=== PATIENT | female | born 1980 | race Asian ===

== ENCOUNTER 2018-03-22 08:21 | Emergency (ER) | payer OTHER ==
[~2018-03-22] VITALS: Ht 162.6 cm; Wt 63.5 kg
[2018-03-22 08:22] VITALS: TEMP 36.9; Ht 162.6 cm; Wt 63.5 kg
[2018-03-22 08:30] VITALS: O2SAT 98
[2018-03-22] MEDS ORDERED: ASPIRIN 324 MG CHEW PO STA (08:45)
[2018-03-22] MEDS ORDERED: SODIUM CHLORIDE 0.9% 1000ML 1,000 ML IV STA (08:45)
[2018-03-22 09:14] LABS: HEMATOCRIT 38.5 % (37-47); MEAN CELL VOLUME 91.2 fL (80-100); MEAN CORPUSCULAR HEMOGLOBIN 30.8 pg (25-34); MEAN CORPUSCULAR HGB CONC 33.8 g/dl (32-36); MEAN PLATELET VOLUME 9.2 fL (7.4-10.4); PLATELET COUNT 300 K/uL (130-400); RED CELL DISTRIBUTION WIDTH CV 13.4 % (11.5-14.5); RED CELL DISTRIBUTION WIDTH SD 44.7 fL (36.4-46.3); WHITE BLOOD COUNT 4.06 K/uL (4.8-10.8)
[2018-03-22 09:25] LABS: PTT PATIENT 23.9 SECONDS (21.0-31.0)
[2018-03-22 09:32] LABS: BASO % 0.2 %; BASO ABS # 0.01 K/uL (0-0.2); EOS % 0.7 %; EOS ABS # 0.03 K/uL (0-0.5); LYMPH % 51.2 %; LYMPH ABS # 2.08 K/uL (1.2-3.4); MONO % 4.4 %; MONO ABS # 0.18 K/uL (0.11-0.59); NEUT % 43.5 %; NEUT ABS # 1.76 K/uL (1.4-6.5)
--- NOTE | 2018-03-22 09:33 | DIAGNOSTIC IMAGING REPORT ---
CHEST 2 VIEWS ROUTINE HISTORY: 38 years-old Female chest pain acute atypical chest pain with cardiac palpitations COMPARISON: None available TECHNIQUE: PA and lateral views of the chest FINDINGS: Electronic device with battery pack projects over the upper left chest wall. Nodular opacities about the bilateral lung bases suggest nipple shadows. Cardiomediastinal and hilar silhouettes are within normal limits. No pneumothorax, pleural effusion, focal airspace consolidation or overt pulmonary edema. Bones of the chest appear grossly intact. Moderate volume of formed stool is noted within the splenic flexure. IMPRESSION: No acute process. The above report was generated using voice recognition software. It may contain grammatical, syntax or spelling errors. Electronically signed by: Fercho Peck M.D. 03/22/2018 9:32 AM Dictated Date/Time: 03/22/2018 9:30 AM
[2018-03-22 09:40] LABS: ALBUMIN 3.8 gm/dl (3.4-5.0); ALKALINE PHOSPHATASE 36 U/L (45-117); ALT/SGPT 21 U/L (12-78); AST/SGOT 17 U/L (15-37); BLOOD UREA NITROGEN 17 mg/dl (7-18); CALCIUM 8.6 mg/dl (8.5-10.1); CARBON DIOXIDE 25 mmol/L (21-32); CKMB < 1.0 ng/ml (0.5-3.6); CREATININE 0.81 mg/dl (0.60-1.20); GLUCOSE 100 mg/dl (70-99); POTASSIUM 3.7 mmol/L (3.5-5.1); SODIUM 139 mmol/L (136-145); TOTAL PROTEIN 7.3 gm/dl (6.4-8.2)
[2018-03-22] MEDS ORDERED: FEXO1TAB58 PO (09:44)
--- NOTE | 2018-03-22 09:47 | EMERGENCY ROOM VISIT NOTE ---
History First contact with patient: 08:28 Chief Complaint: CHEST PAIN Stated Complaint: HEART PALPITATIONS, CHEST PAIN, DIZZINESS Nursing Triage Summary: pt reports chest pain started at 0800 this am while working out and started feeling dizzy pt reports she is wearing holter monitor and feels palpatations. pt went to pcp 1.5 weeks ago received holter monitor. had blood work and everything was fine except slightly anemic History of Present Illness The patient is a 38 year old female who presents to the Emergency Room with complaints of pain and palpitations intermittent for the past few months. The patient states one half weeks ago she did see her PCP. She had an EKG performed , lab work, and was started on a Holter monitor for 14 days. The patient states she is wearing the monitor until next Sunday. She went in a few days later for recheck and had a normal chest x-ray performed. The patient was exercising on the treadmill this morning when she experienced less than 5 seconds of palpitations followed by a short episode of chest pain a few minutes later. She describes the pain as sharp and rates 1/10 this episode, but states over the past few months she has experienced "elephant on my chest type pain". The patient states she was experiencing some mild dizziness, but denies any dyspnea, diaphoresis, weakness, numbness, or tingling. The patient denies any recent travel. She is not currently on any hormone supplements. Patient denies any recent illness, and states her appetite and diet has been normal. She denies any nausea or vomiting. Over the past few months, the patient states occasionally she has experienced some dyspnea. Review of Systems A complete 10 point review of systems was reviewed with the patient with pertinent positives and negatives as per history of present illness. All else were negative. Social History Smoking Status: Never Smoker Smokeless Tobacco Use: No Alcohol Use: occasionally Drug Use: none Housing Status: lives with family Occupation Status: employed Current/Historical Medications Scheduled Fexofenadine-Pseudoephedrine (Geni-D 24 Hour Allergy), 1 TAB PO QAM Physical Exam Vital Signs Date Time Temp Pulse Resp B/P (MAP) Pulse Ox O2 Delivery O2 Flow Rate FiO2 03/22/18 11:02 63 18 107/67 90 03/22/18 10:01 114/76 03/22/18 09:51 61 20 99 03/22/18 09:46 108/83 03/22/18 09:21 82 21 03/22/18 09:12 64 18 122/87 98 Room Air 03/22/18 08:51 77 16 99 03/22/18 08:41 77 03/22/18 08:31 122/87 03/22/18 08:30 98 Room Air 03/22/18 08:22 36.9 76 18 135/88 98 Room Air Physical Exam VITALS: Vitals are noted on the nurse's note and reviewed by myself. Vital signs stable. GENERAL: This is a 38-year-old female, in no acute distress, nondiaphoretic, well-developed well-nourished. SKIN: The skin was without rashes, erythema, edema, or bruising. There is no tenting of the skin. Capillary reflex less than 2 seconds. HEAD: Normocephalic atraumatic. EARS: External auditory canals clear, tympanic membranes pearly mars without erythema or effusion bilaterally. EYES: Pupils equal round and reactive to light and accommodation. Conjunctivae without injection, sclerae without icterus. Extraocular movements intact. NOSE: Patent, turbinates without inflammation or discharge. No sinus tenderness. MOUTH: Mucous membranes moist. Tonsils are not enlarged. Pharynx without erythema or exudate. Uvula midline. Airway patent. Tongue does not deviate. NECK: Supple without nuchal rigidity. No lymphadenopathy. No thyromegaly. Cervical spine is nontender. No JVD. HEART: Regular rate and rhythm without murmurs gallops or rubs. No edema noted. LUNGS: Clear to auscultation bilaterally without wheezes, rales or rhonchi. No dullness to percussion. No retractions or accessory muscle use. ABDOMEN: Positive bowel sounds x 4. Normal tympanic percussion. Soft, nontender, without masses or organomegaly. Del Castillo sign negative. No guarding or rebound tenderness. MUSCULOSKELETAL: No muscle atrophy, erythema, or edema noted. Full range of motion without joint tenderness in all extremities. No tenderness to palpation , specifically over the chest wall. Normal gait. Strength 5/5 throughout. NEURO: Patient was alert and oriented to person place and time. Normal sensation to light and sharp touch. Deep tendon reflexes 2+ throughout. No focal neurological deficits. Medical Decision & Procedures ER Provider Diagnostic Interpretation: CHEST 2 VIEWS ROUTINE HISTORY: 38 years-old Female chest pain acute atypical chest pain with cardiac palpitations COMPARISON: None available TECHNIQUE: PA and lateral views of the chest FINDINGS: Electronic device with battery pack projects over the upper left chest wall. Nodular opacities about the bilateral lung bases suggest nipple shadows. Cardiomediastinal and hilar silhouettes are within normal limits. No pneumothorax, pleural effusion, focal airspace consolidation or overt pulmonary edema. Bones of the chest appear grossly intact. Moderate volume of formed stool is noted within the splenic flexure. IMPRESSION: No acute process. The above report was generated using voice recognition software. It may contain grammatical, syntax or spelling errors. Electronically signed by: Fercho Peck M.D. 03/22/2018 9:32 AM Dictated Date/Time: 03/22/2018 9:30 AM Laboratory Results 03/22/18 09:00 Red Blood Count 4.22, Mean Corpuscular Volume 91.2, Mean Corpuscular Hemoglobin 30.8, Mean Corpuscular Hemoglobin Concent 33.8, Mean Platelet Volume 9.2, Neutrophils (%) (Auto) 43.5, Lymphocytes (%) (Auto) 51.2, Monocytes (%) (Auto) 4.4, Eosinophils (%) (Auto) 0.7, Basophils (%) (Auto) 0.2, Neutrophils # (Auto) 1.76, Lymphocytes # (Auto) 2.08, Monocytes # (Auto) 0.18, Eosinophils # (Auto) 0.03, Basophils # (Auto) 0.01 03/22/18 09:00 Test 03/22/18 08:45 03/22/18 09:00 03/22/18 09:05 Creatine Kinase MB Ratio (0-3.0) White Blood Count 4.06 K/uL (4.8-10.8) Red Blood Count 4.22 M/uL (4.2-5.4) Hemoglobin 13.0 g/dL (12.0-16.0) Hematocrit 38.5 % (37-47) Mean Corpuscular Volume 91.2 fL (80-100) Mean Corpuscular Hemoglobin 30.8 pg (25-34) Mean Corpuscular Hemoglobin Concent 33.8 g/dl (32-36) Platelet Count 300 K/uL (130-400) Mean Platelet Volume 9.2 fL (7.4-10.4) Neutrophils (%) (Auto) 43.5 % Lymphocytes (%) (Auto) 51.2 % Monocytes (%) (Auto) 4.4 % Eosinophils (%) (Auto) 0.7 % Basophils (%) (Auto) 0.2 % Neutrophils # (Auto) 1.76 K/uL (1.4-6.5) Lymphocytes # (Auto) 2.08 K/uL (1.2-3.4) Monocytes # (Auto) 0.18 K/uL (0.11-0.59) Eosinophils # (Auto) 0.03 K/uL (0-0.5) Basophils # (Auto) 0.01 K/uL (0-0.2) RDW Standard Deviation 44.7 fL (36.4-46.3) RDW Coefficient of Variation 13.4 % (11.5-14.5) Immature Granulocyte % (Auto) 0.0 % Immature Granulocyte # (Auto) 0.00 K/uL (0.00-0.02) Erythrocyte Sedimentation Rate 5 mm/hr (0-21) Prothrombin Time 10.0 SECONDS (9.0-12.0) Prothromb Time International Ratio 1.0 (0.9-1.1) Activated Partial Thromboplast Time 23.9 SECONDS (21.0-31.0) Partial Thromboplastin Ratio 0.9 D-Dimer < 190 ug/L FEU (0-500) Anion Gap 8.0 mmol/L (3-11) Est Creatinine Clear Calc Drug Dose 81.4 ml/min Estimated GFR () 106.8 Estimated GFR (Non- 92.1 BUN/Creatinine Ratio 20.9 (10-20) Calcium Level 8.6 mg/dl (8.5-10.1) Magnesium Level 2.1 mg/dl (1.8-2.4) Total Bilirubin 0.4 mg/dl (0.2-1) Aspartate Amino Transf (AST/SGOT) 17 U/L (15-37) Alanine Aminotransferase (ALT/SGPT) 21 U/L (12-78) Alkaline Phosphatase 36 U/L (45-117) Creatine Kinase MB < 1.0 ng/ml (0.5-3.6) Troponin I < 0.015 ng/ml (0-0.045) Total Protein 7.3 gm/dl (6.4-8.2) Albumin 3.8 gm/dl (3.4-5.0) Globulin 3.5 gm/dl (2.5-4.0) Albumin/Globulin Ratio 1.1 (0.9-2) Thyroid Stimulating Hormone (TSH) 1.120 uIu/ml (0.300-4.500) Human Chorionic Gonadotropin, Qual NEG (NEG) Lyme Disease IgG Antibody NEG (NEG) Lyme Disease IgM Antibody NEG (NEG) Urine Color YELLOW Urine Appearance CLEAR (CLEAR) Urine pH 5.0 (4.5-7.5) Urine Specific [place] 1.014 (1.000-1.030) Urine Protein NEG (NEG) Urine Glucose (UA) NEG (NEG) Urine Ketones NEG (NEG) Urine Occult Blood NEG (NEG) Urine Nitrite NEG (NEG) Urine Bilirubin NEG (NEG) Urine Urobilinogen NEG (NEG) Urine Leukocyte Esterase NEG (NEG) Urine Opiates Screen NEG (NEG) Urine Methadone, Qualitative NEG (NEG) Urine Barbiturates NEG (NEG) Urine Phencyclidine (PCP) Level NEG (NEG) Ur Amphetamine/Methamphetamine NEG (NEG) MDMA (Ecstasy) Screen NEG (NEG) Urine Benzodiazepines Screen NEG (NEG) Urine Cocaine Metabolite NEG (NEG) Urine Marijuana (THC) NEG (NEG) Medications Administered Medications (Trade) Dose Ordered Sig/Sonya Route Start Time Stop Time Status Last Admin Dose Admin Sodium Chloride 1,000 ml @ 999 mls/hr Q1H1M STAT IV 03/22/18 08:45 03/22/18 09:45 DC 03/22/18 09:00 999 MLS/HR Aspirin (Aspirin Chew) 324 mg NOW STAT PO 03/22/18 08:45 03/22/18 08:50 DC 03/22/18 08:59 324 MG ECG Per My Interpretation Indication: chest pain Rate (beats per minute): 68 Rhythm: normal sinus Findings: no acute ischemic change, no ectopy Comparison ECG Date: no prior available ED Course The patient was seen and evaluated as above. IV access obtained, labs drawn. The patient was given 324mg PO ASA and 1L NSS IV. EKG reviewed by myself and interpreted as above. Imaging performed and reviewed by myself and radiologist as above. Labs reviewed by myself. I discussed the findings with the patient at bedside. I discussed the case with my attending. Discharge instructions reviewed, the patient was discharged home in good condition. Medical Decision This is a 38-year-old female patient presents emergency department today complaining of intermittent chest pain palpitations for the past 3-4 months. The patient states this morning, she began experiencing discomfort while exercising. She is currently ready able to monitor. Here in the emergency department, she experienced no discomfort whatsoever. She did experience occasional palpitations, however there were no changes noted on the monitor. The patient's chest x-ray did not show any acute cause. EKG was normal. The patient's laboratory workup did not show any signs of infection, anemia, leukocytosis, electrolyte abnormality, renal or hepatic ability, changes in troponin or magnesium, nor was her urine drug screen or Lyme disease testing positive. I suspect a noncardiac etiology to the patient's symptoms, but did advise her to continue with the Holter monitor as she is currently wearing and follow-up with her PCP/leadite man after completion of the test for further workup. Patient verbalized agreement and understanding. She will continue to follow-up with her PCP and was given return precautions. All questions answered to patient's satisfaction prior to discharge Etiologies such as cardiac ischemia, aortic dissection, pulmonary embolism, pneumonia, pneumothorax, musculoskeletal, infections, gastrointestinal, as well as others were entertained. The chart was completed utilizing [employer] Speech voice recognition software. Grammatical errors, random word insertions, pronoun errors, and incomplete sentences are an occasional consequence of this system due to software limitations, ambient noise, and hardware issues. Any formal questions or concerns about the content, text, or information contained within the body of this dictation should be directly addressed to the provider for clarification. Medication Reconcilliation Current Medication List: was personally reviewed by me Blood Pressure Screening Patient's blood pressure: Normal blood pressure Impression Primary Impression: Non-cardiac chest pain Departure Information Dispostion Home / Self-Care Condition GOOD Referrals Moi Box MD (PCP) Patient Instructions ED Chest Pain NonCardiac, [facility] Additional Instructions You were seen in the emergency department today for chest pain. As discussed, labs, imaging, and EKG did not reveal any acute cardiac sources. We did perform testing of your thyroid, magnesium level, Lyme disease testing, all of which were also negative. Continue to wear the Holter monitor as recommended by your PCP. Ibuprofen(Motrin, Advil) may be used for fever or pain. Use 600mg every six hours as needed. Take with food. Avoid using more than 2400mg in a 24 hour period. Do not use 2400mg per day for more than three consecutive days without physician direction. Prolonged inappropriate use can lead to stomach upset or ulcers. (AND/OR) Acetaminophen(Tylenol) may be used for fever or pain. Use 1000mg every six hours as needed. Avoid using more than 3000mg in a 24 hour period. You may limit physical activity as tolerated. Start ASA 81mg daily in case of heart disease. Continue to work closely with your PCP regarding ongoing work-up and management of your pain. Return to the ED for worsening pain, dyspnea, sweating, passing out, fever, or other concerning symptoms.
[2018-03-22 11:02] VITALS: BP 107/67; PULSE 63; O2SAT 90
== END 2018-03-22 11:05 | disposition home or self-care (01) ==
LOC: C.EDB 08:22
DX: R07.89 Other chest pain (principal); R00.2 Palpitations

== ENCOUNTER 2019-04-08 09:25 | Inpatient (IN) ==
[2019-04-08 10:03] LABS: Basophils # (auto) 0.01 K/uL (0-0.2); Basophils % (auto) 0.1 %; Eosinophils # (auto) 0.06 K/uL (0-0.5); Eosinophils % (auto) 0.8 %; Hematocrit (blood only) 37.1 % (37-47); Hemoglobin 12.9 g/dL (12.0-16.0); Immature Granulocytes # (auto) 0.02 K/uL (0.00-0.02); Immature Granulocytes % (auto) 0.3 %; Lymphocytes # (auto) 2.01 K/uL (1.2-3.4); Lymphocytes % (auto) 28.2 %; Mean Corpuscular Hgb Conc 34.8 g/dL (32-36); Mean Corpuscular Volume 89.6 fL (80-100); Mean Platelet Volume 9.5 fL (7.4-10.4); Monocytes # (auto) 0.28 K/uL (0.11-0.59); Monocytes % (auto) 3.9 %; Neutrophils # (auto) 4.74 K/uL (1.4-6.5); Neutrophils % (auto) 66.7 %; Platelet Count 327 K/uL (130-400); RDW Coefficient of Variation 12.8 % (11.5-14.5); RDW Standard Deviation 41.6 fL (36.4-46.3); Red Blood Count 4.14 M/uL (4.2-5.4); White Blood Count 7.12 K/uL (4.8-10.8)
[2019-04-08 10:16] LABS: Alanine Aminotransferase 31 U/L (12-78); Albumin Level 3.1 gm/dl (3.4-5.0); Aspartate Aminotransferase 15 U/L (15-37); BUN Creatinine Ratio 20.1 (10-20); Blood Urea Nitrogen 15 mg/dl (7-18); Calcium 8.8 mg/dl (8.5-10.1); Carbon Dioxide 24 mmol/L (21-32); Chloride 109 mmol/L (98-107); Est GFR (African American) 120.2; Est GFR (Non-African American) 103.7; Glucose 108 mg/dl (70-99); Potassium 3.8 mmol/L (3.5-5.1); Sodium 139 mmol/L (136-145)
[2019-04-08 10:18] LABS: Albumin Globulin Ratio 0.8 (0.9-2); Alkaline Phosphatase 46 U/L (45-117); Bilirubin,Total 0.3 mg/dl (0.2-1); Globulin 3.9 gm/dl (2.5-4.0)
[2019-04-08] MEDS: SODIUM CHLORIDE 0.9% 1000ML 1,000 ML IV SCH ×2 (10:28→10:34)
[2019-04-08 10:44] LABS: Appearance Urine Cloudy (Clear); Bacteria Urine Automated Negative (Negative); Bilirubin Urine Negative (Negative); Blood Urine Negative (Negative); Color Urine Yellow; Epithelial Cell Urine Auto 20-30 /lpf (0-5); Glucose Urine UA Negative (Negative); Ketones Urine Negative (Negative); Leukocyte Esterase Urine Negative (Negative); Nitrite Urine Negative (Negative); Protein Urine Negative (Negative); Specific Gravity Urine 1.026 (1.000-1.030); Urobilinogen Urine Negative (Negative); pH Urine 6.5 (4.5-7.5)
[2019-04-08] MEDS ORDERED: PROMETHAZINE 12.5 MG/50.5 ML BAG IV STA (10:45)
[2019-04-08 11:00] LABS: Calcium Oxalate Crystals Urine Present (None Prsent)
[2019-04-08] MEDS ORDERED: THIAMINE HCL 100 MG in SYRINGE 9 ML IV STA (12:42)
[2019-04-08] MEDS ORDERED: PROMETHAZINE HCL 25 MG in SODIUM CHLORIDE 0.9% 50 ML IV PRN (12:46)
--- NOTE | 2019-04-08 13:21 | History & Physical Report ---
Date of Service April 08, 2019 Assessment & Plan (1) Hyperemesis gravidarum with dehydration: 39 yo at 9.4 wks IVF , with HEG, multiple episodes of N&V despite home meds VSS Afebrile Discussed admission and IV hydration/ meds/ vitamins She agreed See HPI History of Present Illness Chief Complaint: N&V of Primary Care Provider: Moi Box MD 39-year-old at 9.4 wks per her ( with day 5 embryo transfer on 02/18/19) female who presents to emergency department with her for evaluation of s ignificant nausea, vomiting, dehydration and fatigue. Started around 5 weeks and getting worse. She vomited 30 times yesterday. The patient had significant hyperemesis gravidarum this during her last when she was treated with steroids. The patient has been on multiple medications with minimal relief of nausea, including Zofran, Phenergan, Compazine and Reglan. Reglan caused her jitte riness and stopped. The patient reports that she had her best relief of nausea with methylprednisolone. She had IVF done in [place] She has not been to our office yet for her NOB visit. She had 2 US with [employer]. Last one was on 04/04 and it was 7.4 wks with normal FHR She is asking for steroid treatment Discussed possible malformation / cleft lip palate with steroids use in 1st trimester, Recommended admission for IVF replacement, IV antiemetics and vitamins before we plan for steroids She agreed with plan. Allergies Allergy/AdvReac Type Severity Reaction Status Date / Time Penicillins AdvReac Severe HIVES Unverified 04/08/19 10:27 NARCOTICS AdvReac Severe EXTRA Uncoded 04/08/19 10:27 PERAMITAL REACTIONS Home Medications Home Medications Medication Instructions Recorded Confirmed Type PNV cmb#95-ferrous fumarate-FA 1 tab PO HS 04/02/19 04/08/19 History [] cholecalciferol (vitamin D3) 2,000 unit PO HS 04/02/19 04/08/19 History [Vitamin D3] doxylamine-pyridoxine (vit B6) 1 tab PO QID 04/02/19 04/08/19 History [Diclegis] estradiol 2 mg PO BID 04/02/19 04/08/19 History ondansetron 4 mg PO Q6H PRN #20 tab 04/02/19 04/08/19 Rx progesterone 0 mg IM HS 04/02/19 04/08/19 History progesterone micronized [Crinone] 1 appful VAGINAL QAM 04/08/19 04/08/19 History Patient History Medical History resulting from in vitro fertilization in first trimester (Acute) Hyperemesis gravidarum (Chronic) Surgical History No significant past surgical history Family History Other No significant family history Social History Preferred Language: Malay marital status: Current Living Situation: Spouse and Family current occupational status: employed Feels Safe at Home: Yes Smoking Status: Never smoker OB History Csection in 2014 Review of Systems All systems reviewed & are unremarkable except as noted in HPI & below + fatigue + nausea and + vomiting No vaginal bleeding Physical Exam Constitutional: WD/WN, vitals as above well developed Lips dry, comfortably talking Results & Data Vital Signs (Past 12 Hours) Vital Signs Temp Pulse Pulse Resp BP BP Pulse Ox 04/08/19 11:00 56 L 22 109/77 100 04/08/19 10:39 60 21 100 04/08/19 10:35 51 L 18 122/87 99 04/08/19 10:34 61 18 122/87 100 04/08/19 09:26 36.9 C 76 20 144/81 H 97 Laboratory Results 04/08/19 04/08/19 04/08/19 Range/Units 10:38 09:42 09:42 WBC (4.8-10.8) K/uL RBC (4.2-5.4) M/uL Hgb (12.0-16.0) g/dL Hct (37-47) % MCV (80-100) fL MCH (25-34) pg MCHC (32-36) g/dL RDW Std Deviation (36.4-46.3) fL RDW Coeff of Judah (11.5-14.5) % Plt Count (130-400) K/uL MPV (7.4-10.4) fL Immature Gran % (Auto) % Neut % (Auto) % Lymph % (Auto) % Jack % (Auto) % Eos % (Auto) % Baso % (Auto) % Immature Gran # (Auto) (0.00-0.02) K/uL Neut # (Auto) (1.4-6.5) K/uL Lymph # (Auto) (1.2-3.4) K/uL Jack # (Auto) (0.11-0.59) K/uL Eos # (Auto) (0-0.5) K/uL Baso # (Auto) (0-0.2) K/uL Sodium (136-145) mmol/L Potassium (3.5-5.1) mmol/L Chloride (98-107) mmol/L Carbon Dioxide (21-32) mmol/L Anion Gap (3-11) BUN (7-18) mg/dl Creatinine (0.6-1.2) mg/dl Est Cr Clr Drug Dosing Est GFR ( Amer) Est GFR (Non-Af Amer) BUN/Creatinine Ratio (10-20) Glucose (70-99) mg/dl Calcium (8.5-10.1) mg/dl Magnesium Cancelled Pending Total Bilirubin (0.2-1) mg/dl AST (15-37) U/L ALT (12-78) U/L Alkaline Phosphatase (45-117) U/L Total Protein (6.4-8.2) gm/dl Albumin (3.4-5.0) gm/dl Globulin (2.5-4.0) gm/dl Albumin/Globulin Ratio (0.9-2) Lipase (73-393) U/L TSH Pending Urine Color Yellow Urine Appearance Cloudy A (Clear) Urine pH 6.5 (4.5-7.5) Ur Specific [place] 1.026 (1.000-1.030) Urine Protein Negative (Negative) Urine Glucose (UA) Negative (Negative) Urine Ketones Negative (Negative) Urine Blood Negative (Negative) Urine Nitrite Negative (Negative) Urine Bilirubin Negative (Negative) Urine Urobilinogen Negative (Negative) Ur Leukocyte Esterase Negative (Negative) Urine WBC (Auto) 1-5 (0-5) /hpf Urine RBC (Auto) 10-30 H (0-4) /hpf U Hyaline Cast (Auto) 1-5 (0-5) /lpf U Epithel Cells (Auto) 20-30 H (0-5) /lpf Urine Bacteria (Auto) Negative (Negative) Urine Crystals Not Reportable Calcium Oxalate Crystal Present A (None Prsent) 04/08/19 04/08/19 Range/Units 09:42 09:42 WBC 7.12 (4.8-10.8) K/uL RBC 4.14 L (4.2-5.4) M/uL Hgb 12.9 (12.0-16.0) g/dL Hct 37.1 (37-47) % MCV 89.6 (80-100) fL MCH 31.2 (25-34) pg MCHC 34.8 (32-36) g/dL RDW Std Deviation 41.6 (36.4-46.3) fL RDW Coeff of Judah 12.8 (11.5-14.5) % Plt Count 327 (130-400) K/uL MPV 9.5 (7.4-10.4) fL Immature Gran % (Auto) 0.3 % Neut % (Auto) 66.7 % Lymph % (Auto) 28.2 % Jack % (Auto) 3.9 % Eos % (Auto) 0.8 % Baso % (Auto) 0.1 % Immature Gran # (Auto) 0.02 (0.00-0.02) K/uL Neut # (Auto) 4.74 (1.4-6.5) K/uL Lymph # (Auto) 2.01 (1.2-3.4) K/uL Jack # (Auto) 0.28 (0.11-0.59) K/uL Eos # (Auto) 0.06 (0-0.5) K/uL Baso # (Auto) 0.01 (0-0.2) K/uL Sodium 139 (136-145) mmol/L Potassium 3.8 (3.5-5.1) mmol/L Chloride 109 H (98-107) mmol/L Carbon Dioxide 24 (21-32) mmol/L Anion Gap 6.0 (3-11) BUN 15 (7-18) mg/dl Creatinine 0.73 (0.6-1.2) mg/dl Est Cr Clr Drug Dosing Not Reportable Est GFR ( Amer) 120.2 Est GFR (Non-Af Amer) 103.7 BUN/Creatinine Ratio 20.1 H (10-20) Glucose 108 H (70-99) mg/dl Calcium 8.8 (8.5-10.1) mg/dl Magnesium Total Bilirubin 0.3 (0.2-1) mg/dl AST 15 (15-37) U/L ALT 31 (12-78) U/L Alkaline Phosphatase 46 (45-117) U/L Total Protein 7.0 (6.4-8.2) gm/dl Albumin 3.1 L (3.4-5.0) gm/dl Globulin 3.9 (2.5-4.0) gm/dl Albumin/Globulin Ratio 0.8 L (0.9-2) Lipase 157 (73-393) U/L TSH Urine Color Urine Appearance (Clear) Urine pH (4.5-7.5) Ur Specific [place] (1.000-1.030) Urine Protein (Negative) Urine Glucose (UA) (Negative) Urine Ketones (Negative) Urine Blood (Negative) Urine Nitrite (Negative) Urine Bilirubin (Negative) Urine Urobilinogen (Negative) Ur Leukocyte Esterase (Negative) Urine WBC (Auto) (0-5) /hpf Urine RBC (Auto) (0-4) /hpf U Hyaline Cast (Auto) (0-5) /lpf U Epithel Cells (Auto) (0-5) /lpf Urine Bacteria (Auto) (Negative) Urine Crystals Calcium Oxalate Crystal (None Prsent)
[2019-04-08 13:41] LABS: Magnesium 2.1 mg/dl (1.8-2.4)
[2019-04-08] MEDS: MULTI-VITAMIN INFUSION 10 ML, THIAMINE HCL 100 MG, FOLIC ACID 1 MG in SODIUM CHLORIDE 0... IV SCH (13:49)
--- NOTE | 2019-04-08 13:50 | Ultrasound Report ---
US OB limited HISTORY: 39 years-old Female HR and growth follow-up study in a patient with recent IVF, and h yperemesis COMPARISON: None available TECHNIQUE: Multiple real time sonographic images of the deep pelvic structures were obtained transabd ominally assessing grayscale appearance, M-mode analysis and color flow FINDINGS: Anteflexed uterus, 11.7 x 7.0 x 7.7 cm. Intrauterine gestational sac with single fetus, crown-rump le ngth of 2.9 cm which correlates with estimated gestational age of 9 weeks and 5 days. heart rat e measured at 175 bpm. Yolk sac is unremarkable, 0.4 cm. The cervix appears to be closed. Left ovary is not diagnostically visualized. The right ovary measures 2.9 x 2.2 x 1.8 cm and is unrem arkable with arterial inflow and venous outflow documented. No significant free pelvic fluid. IMPRESSION: 1. Single living intrauterine gestation, estimated gestational age by crown-rump length of 9 weeks an d 5 days. 2. Unremarkable sonographic appearance of the right ovary. Left ovary is not diagnostically visualize d. The above report was generated using voice recognition software. It may contain grammatical, syntax o r spelling errors. Electronically signed by: Fercho Peck M.D. 04/08/2019 1:49 PM
[2019-04-08] MEDS: ONDANSETRON INJ 2 MG/ML 2 ML VIAL IV PRN ×2 (13:52→21:17)
--- NOTE | 2019-04-08 14:20 | Emergency Department Note ---
Entered by Becky Romano acting as a scribe for Jose Winters M.D. History of Present Illness General Chief complaint: Vomiting Stated complaint: VOMITING/9WKS PREG Source: patient History of Present Illness Onset (ago): day(s) 1 Location: abdomen Pain Consistency: + other (persistent) Maximum Pain Intensity: 1 Quality: + other (vomiting) Relieved By: not by medication (Diclegis, Zofran) Exacerbated By: + eating Associated symptoms: + denies other symptoms (vaginal bleeding, diarrhea, uterine cramping, fevers, sick contacts) and + other (nausea, constipation, decreased urinary output, abdominal cramping with vomiting, back pain secondary to vomiting) The patient is a 39 year old female with a history of hyperemesis gravidarum that is presenting to the Emergency Room with complaints of persistent vomiting that worsened yesterday. The patient reports that she is currently 9.5 weeks . She notes that she vomited around 30 times yesterday. She states that she was only able to keep down a cup of liquid and half of a sandwich. She notes that her symptoms were not resolved with Diclegis or Zofran. She states that she has been taking these medications 2 times a day since her symptoms started. She notes that she does not take a third dose of Zofran at night as she has nightmares as a result. She denies any diarrhea but notes that she is slightly constipated. She notes that her urinary output has decreased and that her urine seems more concentrated. She denies any vaginal bleeding. She states that she has some lower back pain secondary to her vomiting. She denies any fever or sick contacts. She notes some abdominal cramping after she vomits but denies any uterine cramping. She reports that her vomiting has worsened over the past few weeks. The patient reports that the resulted via IVF that was completed in [place]. She notes that she is still being followed by her fertility doctor there but states that she is transferring care to [facility] this week. She notes that she has had two US completed since the start of her . She states that she was in the ED for similar symptoms one week ago. The patient reports that she has a history of hyperemesis with a previous . She notes that no anti-emesis medications worked during this past . She states that she was placed on a low-dose of Prednisone during that which helped to manage her vomiting and nausea. She denies having to have any inpatient treatment for her past hyperemesis but notes that she had a home health care set up for fluids at that time. She notes that she is currently taking Progesterone. Home Medications Home Medications Medication Instructions Recorded Confirmed Type PNV cmb#95-ferrous fumarate-FA 1 tab PO HS 04/02/19 04/08/19 History [] cholecalciferol (vitamin D3) 2,000 unit PO HS 04/02/19 04/08/19 History [Vitamin D3] doxylamine-pyridoxine (vit B6) 1 tab PO QID 04/02/19 04/08/19 History [Diclegis] estradiol 2 mg PO BID 04/02/19 04/08/19 History ondansetron 4 mg PO Q6H PRN #20 tab 04/02/19 04/08/19 Rx progesterone 0 mg IM HS 04/02/19 04/08/19 History progesterone micronized [Crinone] 1 appful VAGINAL QAM 04/08/19 04/08/19 History Allergies Allergy/AdvReac Type Severity Reaction Status Date / Time Penicillins AdvReac Severe HIVES Unverified 04/08/19 10:27 NARCOTICS AdvReac Severe EXTRA Uncoded 04/08/19 10:27 PERAMITAL REACTIONS Past Med/Surg History Medical History resulting from in vitro fertilization in first trimester (Acute) Hyperemesis gravidarum (Chronic) Surgical History No significant past surgical history Family History Other No significant family history Social History Preferred Language: Kazakh marital status: Current Living Situation: Spouse and Family current occupational status: employed Feels Safe at Home: Yes Smoking Status: Never smoker Review of Systems See HPI for pertinent positives & negatives. and A total of 10 systems reviewed and were otherwise negative Physical Exam Vital Signs Vital Signs - 24 hr 04/08/19 09:26 04/08/19 10:34 04/08/19 10:35 Temperature 36.9 C Temperature Source Oral Sepsis Recent Fever Within 48 Hours No Sepsis Action Taken by Nursing No Action Required Pulse Rate 76 61 Pulse Rate [Right Finger] 51 L Pulse Rate from SpO2 Sensor 60 Respiratory Rate 20 18 18 Blood Pressure 144/81 H 122/87 Blood Pressure [Left Arm] 122/87 Blood Pressure Mean 102 98 Blood Pressure Mean [Left Arm] 98 Pulse Oximetry 97 100 99 Oxygen Delivery Method Room Air Room Air Room Air 04/08/19 10:39 04/08/19 11:00 04/08/19 11:30 Temperature Temperature Source Sepsis Recent Fever Within 48 Hours Sepsis Action Taken by Nursing Pulse Rate 60 56 L 51 L Pulse Rate [Right Finger] Pulse Rate from SpO2 Sensor 59 L 55 L 51 L Respiratory Rate 21 22 19 Blood Pressure 109/77 104/74 Blood Pressure [Left Arm] Blood Pressure Mean 87 84 Blood Pressure Mean [Left Arm] Pulse Oximetry 100 100 99 Oxygen Delivery Method 04/08/19 12:00 04/08/19 12:30 Temperature Temperature Source Sepsis Recent Fever Within 48 Hours Sepsis Action Taken by Nursing Pulse Rate 54 L 58 L Pulse Rate [Right Finger] Pulse Rate from SpO2 Sensor 54 L 59 L Respiratory Rate 21 19 Blood Pressure 107/75 114/73 Blood Pressure [Left Arm] Blood Pressure Mean 85 86 Blood Pressure Mean [Left Arm] Pulse Oximetry 99 100 Oxygen Delivery Method GENERAL: Awake, alert, in no distress HENT: Normocephalic, atraumatic. Oropharynx unremarkable. Dry mucus membranes noted. EYES: Normal conjunctiva. Sclera non-icteric. NECK: Supple. No nuchal rigidity. RESPIRATORY: Clear to auscultation. No wheezes. Normal respiratory effort. CARDIAC: Normal rate. Normal rhythm. Extremities warm and well perfused. GI: Soft, non-distended. No tenderness to palpation. No rebound or guarding. RECTAL: Deferred. MUSCULOSKELETAL: Atraumatic. Chest examination reveals no tenderness. LOWER EXTREMITIES: Calves are equal size bilaterally and non-tender. No edema NEURO: Normal sensorium. No sensory or motor deficits noted. No facial droop. SKIN: Warm and dry. No rash or jaundice noted. Course 0943:The patient was evaluated in room A04B. A complete history and physical examination was performed. 1039: I discussed the patient's case with YUE Whitaker, who recommended starting the patient on Reglan. 1045: I reevaluated the patient at this time. She states that she continues to be nauseous. She decline Reglan but notes that she will try Phenergan. 1134: I revisited the patient at this time. She reports that she is experiencing dizziness secondary to the medications and states that she is unable to lift her head up without exacerbating her symptoms. 1248: After evaluating the patient, Dr. Panfilo Ayala has decided to keep the patient in the hospital for further management and care. The patient verbalized agreement with the plan. She will be evaluated for further management and care. Consultations Consultation #1: I discussed the patient's case with YUE Canales, who recommended starting the patient on Reglan. Time: 10:39 Consultation #2: After evaluating the patient, Dr. Panfilo Ayala has decided to keep the patient in the hospital for further management and care. The patient verbalized agreement with the plan. She will be evaluated for further management and care. Time: 12:48 Administered Medications Multivitamins 10 ml/ Thiamine HCl 100 mg/ Folic Acid 1 mg/Sodium Chloride 1,011.2 mls @ 999 mls/hr IV DAILY@1300 [facility] Stop: 05/08/19 12:59 Last Admin: 04/08/19 13:49 Dose: 999 mls/hr Documented by: [id number] Ondansetron HCl (Zofran) 4 mg IV Q4 PRN PRN Reason: Nausea And Vomiting Stop: 05/08/19 12:35 Last Admin: 04/08/19 13:52 Dose: 4 mg Documented by: [id number] Discontinued Medications Sodium Chloride (Nss 1000ml) 1,000 mls @ 999 mls/hr IV .Q1H1M KARISSA Stop: 04/08/19 12:00 Last Infusion: 04/08/19 11:38 Dose: 0 mls/hr Documented by: [id number] Admin: 04/08/19 10:34 Dose: 999 mls/hr Documented by: [id number] Infusion: 04/08/19 10:34 Dose: 999 mls/hr Documented by: [id number] Admin: 04/08/19 10:28 Dose: 999 mls/hr Documented by: [id number] Promethazine HCl (Phenergan) 12.5 mg in 50.5 mls @ 202 mls/hr IV NOW STA Stop: 04/08/19 10:59 Last Infusion: 04/08/19 11:18 Dose: 0 mls/hr Documented by: [id number] Admin: 04/08/19 10:59 Dose: 202 mls/hr Documented by: [id number] Thiamine HCl 100 mg/ Syringe 10 mls @ 2 mls/min IV NOW STA Stop: 04/08/19 12:46 Last Admin: 04/08/19 13:47 Dose: Not Given Documented by: [id number] Medical Decision Making Differential Diagnosis Differential diagnosis: Etiologies such as gastroenteritis, food borne illness, infections, appendicitis, diverticulitis, inflammatory bowel disease, obstruction, GI bleed, biliary pathology, as well as others were entertained. Medical Records Attestation: I reviewed the patient's medical records. Home Medications Current Medication List: was personally reviewed by me Laboratory Data Attestation: I reviewed the patient's lab results. Result diagrams: 04/08/19 09:42 04/08/19 09:42 Lab Results 04/08/19 04/08/19 04/08/19 Range/Units 09:42 09:42 09:42 WBC 7.12 (4.8-10.8) K/uL RBC 4.14 L (4.2-5.4) M/uL Hgb 12.9 (12.0-16.0) g/dL Hct 37.1 (37-47) % MCV 89.6 (80-100) fL MCH 31.2 (25-34) pg MCHC 34.8 (32-36) g/dL RDW Std Deviation 41.6 (36.4-46.3) fL RDW Coeff of Judah 12.8 (11.5-14.5) % Plt Count 327 (130-400) K/uL MPV 9.5 (7.4-10.4) fL Immature Gran % (Auto) 0.3 % Neut % (Auto) 66.7 % Lymph % (Auto) 28.2 % [place] % (Auto) 3.9 % Eos % (Auto) 0.8 % Baso % (Auto) 0.1 % Immature Gran # (Auto) 0.02 (0.00-0.02) K/uL Neut # (Auto) 4.74 (1.4-6.5) K/uL Lymph # (Auto) 2.01 (1.2-3.4) K/uL [place] # (Auto) 0.28 (0.11-0.59) K/uL Eos # (Auto) 0.06 (0-0.5) K/uL Baso # (Auto) 0.01 (0-0.2) K/uL Sodium 139 (136-145) mmol/L Potassium 3.8 (3.5-5.1) mmol/L Chloride 109 H (98-107) mmol/L Carbon Dioxide 24 (21-32) mmol/L Anion Gap 6.0 (3-11) BUN 15 (7-18) mg/dl Creatinine 0.73 (0.6-1.2) mg/dl Est Cr Clr Drug Dosing Not Reportable Est GFR ( Amer) 120.2 Est GFR (Non-Af Amer) 103.7 BUN/Creatinine Ratio 20.1 H (10-20) Glucose 108 H (70-99) mg/dl Calcium 8.8 (8.5-10.1) mg/dl Magnesium 2.1 (1.8-2.4) mg/dl Total Bilirubin 0.3 (0.2-1) mg/dl AST 15 (15-37) U/L ALT 31 (12-78) U/L Alkaline Phosphatase 46 (45-117) U/L Total Protein 7.0 (6.4-8.2) gm/dl Albumin 3.1 L (3.4-5.0) gm/dl Globulin 3.9 (2.5-4.0) gm/dl Albumin/Globulin Ratio 0.8 L (0.9-2) Lipase 157 (73-393) U/L TSH 0.774 (0.300-4.500) uIu/ml Urine Color Urine Appearance (Clear) Urine pH (4.5-7.5) Ur Specific [place] (1.000-1.030) Urine Protein (Negative) Urine Glucose (UA) (Negative) Urine Ketones (Negative) Urine Blood (Negative) Urine Nitrite (Negative) Urine Bilirubin (Negative) Urine Urobilinogen (Negative) Ur Leukocyte Esterase (Negative) Urine WBC (Auto) (0-5) /hpf Urine RBC (Auto) (0-4) /hpf U Hyaline Cast (Auto) (0-5) /lpf U Epithel Cells (Auto) (0-5) /lpf Urine Bacteria (Auto) (Negative) Urine Crystals Calcium Oxalate Crystal (None Prsent) 04/08/19 04/08/19 Range/Units 09:42 10:38 WBC (4.8-10.8) K/uL RBC (4.2-5.4) M/uL Hgb (12.0-16.0) g/dL Hct (37-47) % MCV (80-100) fL MCH (25-34) pg MCHC (32-36) g/dL RDW Std Deviation (36.4-46.3) fL RDW Coeff of Judah (11.5-14.5) % Plt Count (130-400) K/uL MPV (7.4-10.4) fL Immature Gran % (Auto) % Neut % (Auto) % Lymph % (Auto) % [place] % (Auto) % Eos % (Auto) % Baso % (Auto) % Immature Gran # (Auto) (0.00-0.02) K/uL Neut # (Auto) (1.4-6.5) K/uL Lymph # (Auto) (1.2-3.4) K/uL [place] # (Auto) (0.11-0.59) K/uL Eos # (Auto) (0-0.5) K/uL Baso # (Auto) (0-0.2) K/uL Sodium (136-145) mmol/L Potassium (3.5-5.1) mmol/L Chloride (98-107) mmol/L Carbon Dioxide (21-32) mmol/L Anion Gap (3-11) BUN (7-18) mg/dl Creatinine (0.6-1.2) mg/dl Est Cr Clr Drug Dosing Est GFR ( Amer) Est GFR (Non-Af Amer) BUN/Creatinine Ratio (10-20) Glucose (70-99) mg/dl Calcium (8.5-10.1) mg/dl Magnesium Cancelled (1.8-2.4) mg/dl Total Bilirubin (0.2-1) mg/dl AST (15-37) U/L ALT (12-78) U/L Alkaline Phosphatase (45-117) U/L Total Protein (6.4-8.2) gm/dl Albumin (3.4-5.0) gm/dl Globulin (2.5-4.0) gm/dl Albumin/Globulin Ratio (0.9-2) Lipase (73-393) U/L TSH (0.300-4.500) uIu/ml Urine Color Yellow Urine Appearance Cloudy A (Clear) Urine pH 6.5 (4.5-7.5) Ur Specific [place] 1.026 (1.000-1.030) Urine Protein Negative (Negative) Urine Glucose (UA) Negative (Negative) Urine Ketones Negative (Negative) Urine Blood Negative (Negative) Urine Nitrite Negative (Negative) Urine Bilirubin Negative (Negative) Urine Urobilinogen Negative (Negative) Ur Leukocyte Esterase Negative (Negative) Urine WBC (Auto) 1-5 (0-5) /hpf Urine RBC (Auto) 10-30 H (0-4) /hpf U Hyaline Cast (Auto) 1-5 (0-5) /lpf U Epithel Cells (Auto) 20-30 H (0-5) /lpf Urine Bacteria (Auto) Negative (Negative) Urine Crystals Not Reportable Calcium Oxalate Crystal Present A (None Prsent) Blood Pressure Blood Pressure Findings: Normal blood pressure MDM Narrative Patient is a G2, P1 39-year-old female approximate 9.5 weeks presenting today complaining of dehydration and nausea and vomiting. States that history of hyperemesis. Was seen here last week. Little bit of gurgling her stomach but denies raya abdominal cramping or vaginal bleeding. is a result of IVF and patient currently maintained on estradiol and progesterone. Falls with IVF physician in [place] and establishing local care this week. Has a outpa tient ultrasound on and Sunday OB appointment here. States has been messing to them but has not heard back. States refractory to Zofran at home and diclegeis. States with her previous things were worse and she had refractory symptoms to Zofran, Reglan, Compazine, and Phenergan. Laboratory studies here show no significant leukocytosis, LFT abnormalities, or platelet abnormalities. Kidney function appears stable. Given 2 L of IV fluid. Discussed with OB. They recommend some Benadryl but the patient states this is given her bad reaction in the past but she was willing to trial a bit of Phenergan which was administered. OB did come and evaluate the patient at bedside. Urinalysis obtained after approximately liter and a half of IV fluid showed no significant ketones. Slightly concentrated urine. Given the recurrent frequency of her symptoms obstetrics decided to admit the patient for IV fluids and further evaluation. Impression & Plan Hyperemesis gravidarum Discharge Plan Visit Data Chief Complaint: Vomiting Stated Complaint: VOMITING/9WKS PREG ED Provider: Jose Winters Discharge Problem: Hyperemesis gravidarum Patient Disposition: Being Evaluated by Hospitalist The scribe's documentation has been prepared under my direction and personally reviewed by me in its entirety. I confirm that the note above accurately reflects all work, treatment, procedures, and medical decision making performed by me.
[2019-04-08] MEDS: LACTATED RINGER'S 1,000 ML IV SCH ×2 (15:03→21:17)
--- NOTE | 2019-04-08 19:45 | Obstetrical Progress Note ---
Date of Service April 08, 2019 Subjective Patient is reevaluated She feels better, vomited only once since admission Nausea is less She had questions about her meds Rx by her [facility] , PO Estradiol and IM Progesterone injections I talked to her [facility] Dr. Bazzi and she states she does not need those anymore She will need to continue with Crinone vaginal gel for 2 more days until 10 wks Patient is aware All questions were answered Results & Data Vital Signs (Past 12 Hours) Vital Signs Temp Pulse Pulse Pulse Resp BP BP 04/08/19 15:40 36.9 C 60 18 106/67 04/08/19 14:25 36.8 C 56 L 16 119/81 04/08/19 13:51 58 L 22 103/71 04/08/19 13:01 62 21 110/63 04/08/19 13:00 61 19 04/08/19 12:52 58 L 17 103/63 04/08/19 12:30 58 L 19 114/73 04/08/19 12:00 54 L 21 107/75 04/08/19 11:30 51 L 19 104/74 04/08/19 11:00 56 L 22 109/77 04/08/19 10:39 60 21 04/08/19 10:35 51 L 18 122/87 04/08/19 10:34 61 18 122/87 04/08/19 09:26 36.9 C 76 20 144/81 H Pulse Ox 04/08/19 15:40 98 04/08/19 14:25 100 04/08/19 13:51 99 04/08/19 13:01 100 04/08/19 13:00 99 04/08/19 12:52 100 04/08/19 12:30 100 04/08/19 12:00 99 04/08/19 11:30 99 04/08/19 11:00 100 04/08/19 10:39 100 04/08/19 10:35 99 04/08/19 10:34 100 04/08/19 09:26 97
[2019-04-09] MEDS: LACTATED RINGER'S 1,000 ML IV SCH ×2 (03:57→10:41)
--- NOTE | 2019-04-09 07:17 | Obstetrical Progress Note ---
Date of Service April 09, 2019 Subjective Patient is reevaluated She feels better Vomitedx2 yesterday, very small amount Has been using BR, lots of urine Flatus+, BM+ She feels hungry, likes to try eating today Plan to advance diet as tolerated, BRAT diet Continue to monitor Anticipate d/c tomorrow Results & Data Vital Signs (Past 12 Hours) Vital Signs Temp Pulse Resp BP BP Pulse Ox 04/09/19 03:30 36.8 C 67 18 99/66 L 97 04/08/19 23:20 36.8 C 61 18 108/71 97 04/08/19 19:40 36.9 C 61 18 132/87 97
[2019-04-09] MEDS: ONDANSETRON INJ 2 MG/ML 2 ML VIAL IV PRN (07:52)
[2019-04-09] MEDS ORDERED: PROGESTERONE EXT SCH (09:00)
--- NOTE | 2019-04-09 10:05 | Obstetrical Progress Note ---
Date of Service April 09, 2019 Physical Exam Physical Exam: nausea and vomiting improving on iv fluids and vitamins starting to tolerate small amounts of food Results & Data Vital Signs (Past 12 Hours) Vital Signs Temp Pulse Resp BP Pulse Ox 04/09/19 07:27 37.2 C 62 18 112/76 97 04/09/19 03:30 36.8 C 67 18 99/66 L 97 04/08/19 23:20 36.8 C 61 18 108/71 97
[2019-04-09] MEDS: MULTI-VITAMIN INFUSION 10 ML, THIAMINE HCL 100 MG, FOLIC ACID 1 MG in SODIUM CHLORIDE 0... IV SCH (13:31)
[2019-04-10] MEDS: LACTATED RINGER'S 1,000 ML IV SCH ×4 (00:41→22:59)
[2019-04-10] MEDS: ONDANSETRON INJ 2 MG/ML 2 ML VIAL IV PRN (07:27)
[2019-04-10] MEDS ORDERED: PROGESTERONE EXT SCH (09:00)
[2019-04-10] MEDS ORDERED: ACETAMINOPHEN 500 MG TAB PO PRN (10:05)
[2019-04-10] MEDS ORDERED: ACETAMINOPHEN 1,000 MG/100 ML VIAL IV PRN (10:07)
--- NOTE | 2019-04-10 11:15 | Obstetrical Progress Note ---
Date of Service April 10, 2019 Subjective Still having nausea and vomiting emesis several times this morning has headache Abdomen is soft No bleeding Will continue IV fluids until tolerating diet continue Zofran Start IV Solumedrol q 8 hrs for 48 hrs Results & Data Vital Signs (Past 12 Hours) Vital Signs Temp Pulse Resp BP 04/10/19 08:00 36.9 C 75 16 104/69
[2019-04-10] MEDS: methylPREDNISolone 15 MG in SYRINGE 0 ML IV SCH ×2 (12:10→19:43)
[2019-04-10] MEDS: MULTI-VITAMIN INFUSION 10 ML, THIAMINE HCL 100 MG, FOLIC ACID 1 MG in SODIUM CHLORIDE 0... IV SCH (13:08)
[2019-04-11] MEDS: methylPREDNISolone 15 MG in SYRINGE 0 ML IV SCH ×2 (03:38→12:04)
[2019-04-11] MEDS: LACTATED RINGER'S 1,000 ML IV SCH ×2 (05:34→13:52)
--- NOTE | 2019-04-11 08:42 | Obstetrical Progress Note ---
Date of Service April 11, 2019 Subjective still having nausea tolerated breakfast so far had emesis last PM with dinner Will re-evaluate after lunch and if tolerating diet will discharge home Results & Data Vital Signs (Past 12 Hours) Vital Signs Temp Pulse Resp BP Pulse Ox 04/11/19 07:41 36.9 C 68 18 114/69 97 04/11/19 03:35 37.0 C 65 16 94/57 L 97 04/10/19 23:00 36.8 C 61 16 105/66 95
[2019-04-11] MEDS: MULTI-VITAMIN INFUSION 10 ML, THIAMINE HCL 100 MG, FOLIC ACID 1 MG in SODIUM CHLORIDE 0... IV SCH (12:39)
--- NOTE | 2019-04-11 14:31 | Progress Note ---
Date of Service April 11, 2019 Subjective Pt doing well Improved hyperemesis' wishes to go home Tolerating PO food and Meds Results & Data Vital Signs (Past 12 Hours) Vital Signs Temp Pulse Resp BP Pulse Ox 04/11/19 11:53 36.8 C 67 18 116/76 99 04/11/19 07:41 36.9 C 68 18 114/69 97 04/11/19 03:35 37.0 C 65 16 94/57 L 97
--- NOTE | 2019-04-28 09:22 | Discharge Summary ---
CHIEF COMPLAINT: Hyperemesis in . HISTORY OF PRESENT ILLNESS: This is a 39-year-old G2, P1 who was seen through the ER on 04/08/2019. She was 9.49 weeks and 4 days . is via IVF. The patient has had hyperemesis. She was admitted, received IV fluids, and several antiemetics. She eventually did well on steroids and was discharged home on 04/11/2019 on steroids. PAST MEDICAL HISTORY: The patient has not had history of hyperemesis in her first . PAST SURGICAL HISTORY: None. SOCIAL HISTORY: The patient is . Denies drug or alcohol use. FAMILY HISTORY: Noncontributory. ALLERGIES: THE PATIENT IS ALLERGIC TO PENICILLIN. REVIEW OF SYSTEMS: Negative except as dictated in the HPI. PHYSICAL EXAMINATION: GENERAL: Well-developed, well-nourished, oriented female in no acute distress. HEART: S1, S2, regular rhythm and rate. LUNGS: Clear to auscultation bilaterally. CONDITION ON DISCHARGE: Stable. DISCHARGE DIAGNOSIS: Hyperemesis gravidarum. OPERATIONS: None. PLAN ON DISCHARGE: The patient is discharged home with instructions regarding diet, activity, and followup appointment.
== END 2019-04-11 16:00 | disposition home or self-care (01) | DRG 833 ==
LOC: ED 09:25 → 4N 12:37

== ENCOUNTER 2019-09-19 15:41 | Observation (INO) ==
[2019-09-19] MEDS ORDERED: ONDANSETRON INJ 2 MG/ML 2 ML VIAL IV PRN (15:57)
[2019-09-19] MEDS ORDERED: LACTATED RINGER'S 1,000 ML IV ONE (16:05)
--- NOTE | 2019-09-19 16:18 | History & Physical Report ---
Date of Service September 19, 2019 Assessment & Plan (1) Spotting affecting in third trimester: 39 yo at 33.1 wks with h/o myomectomy, Primary Csection, [facility]ks Now with spotting once at home, ctxs VSS Afebrile No VB at speculum exam Irregular ctxs Plan labs, monitor, IVF bolus and reevaluate All questions were answered (2) Hyperemesis gravidarum with dehydration: History of Present Illness Primary Care Provider: Moi Box MD Patient is a 39 yo at 33.1 wks who saw a small amount of blood on toilet paper today once None since then She reports ctxs more since yesterday No LOF/VB Her has been complicated by 1) Severe HEG, treated with IV Steroids for many week with multiple admission to hospital, Off sterodis since 07/17/19, able to eat and drink now 2) h/o Myomectomy, Csection in 2014 with thin uterine segment at fundus ( myomectomy site) She was referred to [facility] deliver [facility] at 37 weeks with Repeat Csection She called them today and they recommended to come here Denies recent SI Allergies Allergy/AdvReac Type Severity Reaction Status Date / Time NARCOTICS AdvReac Severe EXTRA Uncoded 09/19/19 16:01 PERAMITAL REACTIONS Home Medications Home Medications Medication Instructions Recorded Confirmed Type PNV cmb#95-ferrous fumarate-FA 1 tab PO HS 04/02/19 07/20/19 History [] amoxicillin-pot clavulanate 1 tab PO BID #14 tab 06/24/19 07/20/19 Rx [Augmentin] Patient History Medical History Gestational diabetes diet controlled History of IBS well controlled for several years; no medications Hyperemesis gravidarum (Chronic) Mild mitral regurgitation no medications given Mild tricuspid regurgitation no medication given resulting from in vitro fertilization in first trimester (Acute) Uterine polyp removal in 2012 and 2013 Surgical History H/O: myomectomy 2010 No significant past surgical history Previous section Family History Father Hypertension Stroke Other No significant family history Social History Preferred Language: Latvian Communication Ability: Effective Hot Frame Tender Required: No Beliefs That Will Affect Care: None marital status: Current Living Situation: Family current occupational status: employed Feels Safe at Home: Yes Smoking Status: Never smoker Hx Alcohol Use: No Hx Substance Use: No OB History FT Primary Csection in 2015 in [place], thin uterine segment at Myomectomy site Review of Systems All systems reviewed & are unremarkable except as noted in HPI & below Physical Exam Constitutional: WD/WN, vitals as above well developed and well nourished NAD Gastrointestinal (Abdomen): normal bowel sounds, soft, nontender, no hepatosplenomegaly Soft, NT, Gravid, no uterine nor incision tenderness Genitourinary: normal external appearance SSE: no blood in vagina, cervix appears closed with ectropion, no bleeding from os, FFN collected Digital exam: cx ft/ soft, 50%/ -3, Results & Data Vital Signs (Past 12 Hours) Vital Signs Pulse BP 09/19/19 15:50 95 H 128/72 Monitoring External Monitor 130's reactive Tocodynamometer Ctxs q 5-7 min
[2019-09-19 16:31] LABS: Basophils # (auto) 0.01 K/uL (0-0.2); Basophils % (auto) 0.1 %; Eosinophils # (auto) 0.05 K/uL (0-0.5); Eosinophils % (auto) 0.5 %; Hematocrit (blood only) 29.5 % (37-47); Immature Granulocytes # (auto) 0.09 K/uL (0.00-0.02); Lymphocytes # (auto) 1.86 K/uL (1.2-3.4); Lymphocytes % (auto) 20.4 %; Mean Corpuscular Hemoglobin 31.2 pg (25-34); Mean Corpuscular Hgb Conc 33.9 g/dL (32-36); Mean Corpuscular Volume 91.9 fL (80-100); Monocytes # (auto) 0.48 K/uL (0.11-0.59); Monocytes % (auto) 5.3 %; Neutrophils # (auto) 6.64 K/uL (1.4-6.5); Neutrophils % (auto) 72.7 %; Platelet Count 326 K/uL (130-400); RDW Coefficient of Variation 13.5 % (11.5-14.5); RDW Standard Deviation 45.6 fL (36.4-46.3); Red Blood Count 3.21 M/uL (4.2-5.4); White Blood Count 9.13 K/uL (4.8-10.8)
[2019-09-19 16:38] LABS: Appearance Urine Clear (Clear); Bilirubin Urine Negative (Negative); Blood Urine Negative (Negative); Color Urine Yellow; Glucose Urine UA Negative (Negative); Ketones Urine Negative (Negative); Leukocyte Esterase Urine Negative (Negative); Nitrite Urine Negative (Negative); Protein Urine Negative (Negative); Urobilinogen Urine Negative (Negative); pH Urine 6.5 (4.5-7.5)
[2019-09-19] MEDS ORDERED: BETAMETH SOD PHOS/ACETATE IA 6 MG/ML IM STA (17:27)
[2019-09-19] MEDS ORDERED: TERBUTALINE SULFATE 1 MG/ML VIAL SQ ONE (17:27)
[2019-09-19] MEDS: LACTATED RINGER'S 1,000 ML IV SCH ×2 (17:28→21:10)
--- NOTE | 2019-09-19 17:58 | Obstetrical Progress Note ---
Date of Service September 19, 2019 Subjective Late entry from 1730 FFN positive Still has ctxs on monitor after IVF bolus Discussed increased risk of PTL Recommended Celestone series and terbutaline sq She accepted Results & Data Vital Signs (Past 12 Hours) Vital Signs Temp Pulse Resp BP 09/19/19 15:53 36.7 C 18 09/19/19 15:50 95 H 128/72
[2019-09-19] MEDS ORDERED: NIFEdipine 10 MG CAP PO STA ×2 (19:47→22:43)
--- NOTE | 2019-09-19 20:13 | Obstetrical Progress Note ---
Date of Service September 19, 2019 Subjective Patient is reevaluated She stopped having ctxs after Terbutaline was given for about an hour and then ctxs started back up again She feels them stronger but not painful VSS Afebrile VE; unchanged, ft, 50%/ -3, posterior Abd soft, NT, ctxs q 4-7 min Plan to start Procardia and reevaluate Discussed possible transfer to [facility] if she would change her cervix All questions were answered Results & Data Vital Signs (Past 12 Hours) Vital Signs Temp Pulse Resp BP 09/19/19 18:59 37.1 C 88 18 119/71 09/19/19 15:53 36.7 C 18 09/19/19 15:50 95 H 128/72
[2019-09-19] MEDS: NIFEdipine 10 MG CAP PO SCH (20:18)
[2019-09-19] MEDS: FERROUS SULFATE 325 MG TAB PO SCH (23:13)
[2019-09-20] MEDS: NIFEdipine 10 MG CAP PO SCH ×3 (00:15→07:49)
[2019-09-20] MEDS: LACTATED RINGER'S 1,000 ML IV SCH ×2 (00:26→04:52)
[2019-09-20] MEDS ORDERED: PRENATAL VITAMIN 1 TAB PO SCH (07:00)
[2019-09-20] MEDS: FERROUS SULFATE 325 MG TAB PO SCH (07:49)
--- NOTE | 2019-09-20 07:56 | Obstetrical Progress Note ---
Date of Service September 20, 2019 Subjective Patient is reevaluated She feels much better No ctxs/ LOF/VB +FM No side effects from Procardia Desires to be discharged Discussed when to call and Rx for anemia and 2nd dose of Celestone this afternoon All questions were answered Results & Data Vital Signs (Past 12 Hours) Vital Signs Temp Pulse Resp BP 09/20/19 07:45 89 110/68 09/20/19 04:30 37.0 C 20 09/20/19 03:05 82 98/61 L 09/19/19 23:08 37.0 C 86 104/50 L 09/19/19 20:17 92 H 114/73
--- NOTE | 2019-09-29 00:27 | Discharge Summary ---
DETAILS OF ADMISSION: The patient is a 39-year-old G2, P1-0-0-1 at 33 weeks and 1 day of gestation with history of myomectomy, primary , plans for delivery at [facility] at 37 weeks. She presented to labor and delivery on 09/19/2019 with spotting once at home. She was found to have no bleeding. Had speculum exam, closed cervix, but irregular contractions. She was started on IV fluids which did not stop her contractions. She was then given terbutaline one time and it helped to relieve the uterus for about an hour. During waiting, her FFN test came back positive and decision was made to start her with Betamethasone series. She was given first dose of Celestone on 09/19/2019 evening and then she was also started on Procardia due to recurrent contractions. She responded to Procardia, contractions spaced out, and her cervix did not change. She was discharged on 09/20/2019 in the morning and she was recommended to come back in the evening for her second Celestone series and then call back with contractions, leaking or bleeding, or decreased movements. heart rate had been category 1 and normal reactive strip and all questions were answered. MTDD
== END 2019-09-20 08:24 | disposition home or self-care (01) ==
LOC: OPB 15:41 → 4S1 15:41

== ENCOUNTER 2019-09-23 16:46 | Observation (INO) ==
[2019-09-23] MEDS ORDERED: TERBUTALINE SULFATE 1 MG/ML VIAL SQ PRN (17:07)
[2019-09-23] MEDS ORDERED: LACTATED RINGER'S 1,000 ML IV PRN (17:07)
--- NOTE | 2019-09-23 17:27 | History & Physical Report ---
Date of Service September 23, 2019 Assessment & Plan (1) uterine contractions: 39 yo at 33.5 wks with contractions with some cervical change VSS Afebrile FHR reassuring She prefers to be at [facility] I called them and they said if she will not change they will send her home Her insurance may or my not pay History of Present Illness Chief Complaint: contractions Primary Care Provider: Moi Box MD Patient is a 39 yo at 33.5 wks who was here for spotting and contraction on 09/19 night and was discharged home on 2 am after IVF, Terbutali and Procardia. Completed steroid series She has been using Procardia every 4 hours but has been having ctxs q 15 min since yesterday They increased today to q 10 min and stronger. She called [facility] and was told to come back here, No spotting/ VB/ LOF/ Fever/ chills/ N&V/ dysuria Denies recent SI Her has been complicated by 1) Severe HEG, treated with IV Steroids for many week with multiple admission to hospital, Off steroids since 07/17/19, able to eat and drink now 2) h/o Myomectomy, Csection in 2014 with thin uterine segment at fundus ( myomectomy site) She was referred to [facility] and she chose to see [facility] and plans to deliver there at 37 weeks with Repeat Csection 3) FFN was + on 09/19 Allergies Allergy/AdvReac Type Severity Reaction Status Date / Time midazolam AdvReac Intermediate EXTRAPYRAMIDAL Verified 09/23/19 17:27 REACTION morphine AdvReac Intermediate EXTRAPYRAMIDAL Verified 09/23/19 17:28 [From Duramorph (PF)] REACTION propofol AdvReac Intermediate EXTRAPYRAMIDAL Verified 09/23/19 17:26 REACTION Home Medications Home Medications Medication Instructions Recorded Confirmed Type PNV cmb#95-ferrous fumarate-FA 1 tab PO HS 04/02/19 09/23/19 History [] ferrous sulfate 325 mg PO BIDM #60 tab 09/20/19 09/23/19 Rx nifedipine 10 mg PO Q4 #60 cap 09/20/19 09/23/19 Rx Patient History Social History Preferred Language: Italian Communication Ability: Effective Mail Processing Associate Required: No Beliefs That Will Affect Care: None marital status: Current Living Situation: Family Current Living Situation Comment: lives with and 4 year old daughter current occupational status: employed Feels Safe at Home: Yes Smoking Status: Never smoker Hx Alcohol Use: No Hx Substance Use: No Review of Systems All systems reviewed & are unremarkable except as noted in HPI & below Physical Exam Constitutional: WD/WN, vitals as above well developed, well nourished and + acute distress (NAD) Musculoskeletal: Abd: soft, NT between ctxs, moderate ctxs q 7-8 min Genitourinary: normal external appearance VE: cervix 1 cm/ 70%/ -2, central, lower and thinner than before Results & Data Vital Signs (Past 12 Hours) Vital Signs Temp Pulse Resp BP 09/23/19 16:58 88 115/62 09/23/19 16:52 88 115/62 09/23/19 16:50 36.8 C 20 Monitoring External Monitor NST: 130's reactive, moderate variability, no decelerations Tocodynamometer Contractions: q 7-8 min
--- NOTE | 2019-09-23 17:47 | Obstetrical Progress Note ---
Date of Service September 23, 2019 Subjective Patient is given options either observation here for possible cervical change vs transfer or drive with her [place] [facility] They decided to stay here for now and then reevaluate Ctxs spaced out already after she received Terbutaline FHR reassuring Continue to monitor Results & Data Vital Signs (Past 12 Hours) Vital Signs Temp Pulse Resp BP 09/23/19 17:34 83 108/68 09/23/19 16:58 88 115/62 09/23/19 16:52 88 115/62 09/23/19 16:50 36.8 C 20
[2019-09-23 17:58] LABS: Appearance Urine Cloudy (Clear); Bacteria Urine Automated Negative (Negative); Bilirubin Urine Negative (Negative); Blood Urine Negative (Negative); Color Urine Yellow; Epithelial Cell Urine Auto >30 /lpf (0-5); Glucose Urine UA Negative (Negative); Ketones Urine Negative (Negative); Leukocyte Esterase Urine Trace (Negative); Nitrite Urine Negative (Negative); Protein Urine Negative (Negative); RBC Urine Automated 0-4 /hpf (0-4); Specific Gravity Urine 1.016 (1.000-1.030); Urobilinogen Urine Negative (Negative); pH Urine 6.5 (4.5-7.5)
[2019-09-23] MEDS: LACTATED RINGER'S 1,000 ML IV SCH ×2 (18:26→22:22)
[2019-09-23] MEDS ORDERED: NIFEdipine 10 MG CAP PO ONE (18:30)
--- NOTE | 2019-09-23 19:14 | Obstetrical Progress Note ---
Date of Service September 23, 2019 Subjective Patient is reevaluated She feels better, ctxs spaced out, every 10-15 min and milder JAYRO 1cm/ 60%/ -3, posterior, feels thicker and higher FHR categ I Yeager: ctxs q 1-10 min Plan to observe/ monitor longer Results & Data Vital Signs (Past 12 Hours) Vital Signs Temp Pulse Resp BP 09/23/19 19:05 87 116/70 09/23/19 18:48 100 H 117/67 09/23/19 18:36 100 H 129/64 09/23/19 18:19 98 H 112/68 09/23/19 18:03 100 H 111/71 09/23/19 17:49 93 H 109/66 09/23/19 17:34 83 108/68 09/23/19 16:58 88 115/62 09/23/19 16:52 88 115/62 09/23/19 16:50 36.8 C 20
[2019-09-23] MEDS ORDERED: NIFEdipine 10 MG CAP PO SCH (22:00)
[2019-09-23] MEDS ORDERED: NIFEdipine 10 MG CAP PO STA (23:15)
--- NOTE | 2019-09-23 23:18 | Obstetrical Progress Note ---
Date of Service September 23, 2019 Subjective Patient is reevaluated She feels well, ctxs are about the same, 3-4 in 1 hour, mild, not painful No side effects from Procardia No LOF/VB +FM No abdominal pain/ fever/ chills VSS Afebrile VE unchanged FHR reactive She states she can not sleep at hospital bed and prefers to go home Discussed when to call and may take 2tb of Procardia if ctxs get more closer and call us back All questions were answered Results & Data Vital Signs (Past 12 Hours) Vital Signs Temp Pulse Resp BP 09/23/19 19:10 36.8 C 18 09/23/19 19:05 87 116/70 09/23/19 18:48 100 H 117/67 09/23/19 18:36 100 H 129/64 09/23/19 18:19 98 H 112/68 09/23/19 18:03 100 H 111/71 09/23/19 17:49 93 H 109/66 09/23/19 17:34 83 108/68 09/23/19 16:58 88 115/62 09/23/19 16:52 88 115/62 09/23/19 16:50 36.8 C 20
--- NOTE | 2019-09-29 00:50 | Discharge Summary ---
DETAILS OF ADMISSION: The patient is a 39-year-old G2, P1-0-0-1 at 33 weeks and 5 days of gestation, who presented to labor and delivery with contractions on 09/23/2019. She was in labor and delivery 3 days ago with spotting and irregular contractions. Her cervix did not change. She completed the Celestone series and she was sent home. She called [facility] where she plans to deliver her baby and they told her to come to the closest hospital which was [facility]. She presented to labor and delivery. She was showing irregular contractions on the monitor and baby's heart rate was category 1. Her cervix changed some to 1 cm, 60%, -1, baby's head was lower. She has a history of myomectomy and . She wanted to deliver at [facility] due to their NICU. She wanted to be transferred to [place] that night. I called [facility] transfer center and talked to the doctor reservations clerk. They discussed pros and cons of transfer, medical indication was present or not, medical insurance may pay or not, and after long discussion the patient decided to stay for observation and then plan depending on her contraction pattern or cervical change. She was given IV fluids and terbutaline injection and then contractions spaced out. Her cervix did not change. She was kept for a more hours and Procardia dose was increased and then she wanted to go home on the same night, on 09/23/2019. Upon discharge, her contractions were irregular, about 2-3 an hour, with no cervical change, and she was not feeling them anymore and she was discharged home with Procardia and then she is to be seen in the office. All questions were answered. ENZO
== END 2019-09-23 23:39 | disposition home or self-care (01) ==
LOC: 4S1 16:46 → OPB 16:46 → 4S1 16:48

== ENCOUNTER 2024-05-09 12:09 | Inpatient (IN) ==
--- NOTE | 2024-05-05 08:39 | Communication Note ---
Date of Service: May 05, 2024 - I was notified by CHALINO SHETTY that patient is requesting Dr. Mandujano be present for her procedure 05/09/24 due to their previous discussion regarding her anesthesia reactions. Dr. Mandujano confirmed he plans to be available for case and will also be discussing her history with Dr. Adair who is assigned to endoscopy that day. He stated that he is also considering having her case be earlier in the day and has notified both Dr. Prado's office and the endoscopy staff. Per CHALINO SHETTY, patient denied additional questions or concerns.
--- NOTE | 2024-05-06 07:57 | Anesthesiology Consultation ---
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 Johan Prado Jr, MD Height/Weight Height: 5 ft 3.5 in Weight: 62.596 kg Allergies Allergy/AdvReac Type Severity Reaction Status Date / Time fentanyl Allergy Intermediate EXTRAPYRAMIDAL Verified 05/05/24 08:25 REACTION midazolam AdvReac Intermediate EXTRAPYRAMIDAL Verified 05/05/24 08:25 REACTION morphine AdvReac Intermediate EXTRAPYRAMIDAL Verified 05/05/24 08:25 [From Duramorph (PF)] REACTION propofol AdvReac Intermediate EXTRAPYRAMIDAL Verified 05/05/24 08:25 REACTION Medications Home Medications Medication Instructions Recorded Confirmed Last Taken baclofen 10 mg tablet 10 mg PO BID 08/28/23 05/05/24 Unknown gabapentin 300 mg capsule 300 mg PO BID 08/28/23 05/05/24 Unknown ibuprofen 200 mg tablet (Advil) 200 mg PO Q6H PRN Pain 08/28/23 05/05/24 Unknown vitamin C 500 mg-multivitamin with 1 tab PO DAILY PRN Other 08/28/23 05/05/24 Unknown minerals chewable tablet (Emergen-C) norethindrone (contraceptive) 0.35 0.35 mg PO DAILY #84 tabs 12/20/23 05/05/24 Unknown mg tablet omeprazole 20 mg capsule,delayed 20 mg PO BID 12/20/23 05/05/24 Unknown release acetaminophen 500 mg tablet 1,000 mg PO TID 05/05/24 05/05/24 Unknown (Tylenol Extra Strength) albuterol sulfate 90 mcg/actuation 1 inh inhalation QID PRN Wheezing 05/05/24 05/05/24 Unknown aerosol inhaler calcium carbonate (Tums) 300 mg PO BID PRN Acid Reflux 05/05/24 05/05/24 Unknown iron,carbonyl 65 mg-vitamin C 125 1 tab PO Q OTHER DAY 05/05/24 05/05/24 Unknown mg tablet,delayed release (Vitron-C) levonorgestrel 21 mcg/24 hr (up to 21 mcg intrauterine UD 05/05/24 05/05/24 Unknown 8 years) 52 mg intrauterine device (Mirena) multivitamin 1 tab PO QAM 05/05/24 05/05/24 Unknown simethicone 250 mg capsule 250 mg PO DAILY PRN Digestion 05/05/24 05/05/24 Unknown Past Medical History Medical History History of anesthesia reaction EXTRAPYRAMIDAL REACTION > gets this after surgery, did not in past, but each time since 2010 has had these episodes, same day surgeries had turned into overnight stays due to this Extrapyramidal and movement disorder, unspecified gets this after surgery, did not in past, but each time since 2010 has had these episodes, same day surgeries had turned into overnight stays due to this IBS (irritable bowel syndrome) diet controlled GERD (gastroesophageal reflux disease) Iron deficiency anemia Sciatica Migraine RBBB no cards Asthma only has flare up when sick > rare res inh use Liver cyst Prediabetes diet controlled Mild tricuspid regurgitation no medication given Mild mitral regurgitation no medications given History of IBS well controlled for several years; no medications Past Family History Family History Father Hypertension Stroke Uncle Colorectal cancer maternal Grandmother (Maternal) Ovarian cancer Other No significant family history Denies family history of Prostate cancer Myocardial infarction Breast cancer Past Surgical History Surgical History History of dilatation and curettage History of colonoscopy 2006 or 2007 Hx of breast biopsy with clip placed > benign S/P epidural steroid injection Hx of oral surgery dental implant History of section x2 Hx of laparoscopy Apr 18, 2024 > uterine polyp removed, endometerosis removed, IUD inserted, still taking Tylenol TID for pain Hx of ovarian cystectomy Hx of wisdom tooth extraction Hx of tubal ligation H/O: myomectomy 2010 Social History Smoking Status: Never smoker Do You Dip or Chew Tobacco: No Hx Alcohol Use: No Hx Substance Use: No substance use type: does not use
[~2024-05-09 12:09] MED LIST: DexMEDEtomidine HCL IV 100 MCG/ML VIAL IV ONE
--- NOTE | 2024-05-09 12:50 | History & Physical Report ---
Date of Service May 09, 2024 Assessment & Plan (1) Encounter for pre-operative examination: Plan: Pleasant woman with worsening reflux who needs EGD to biopsy for H. pylori and screening colonoscopy. Procedure and risks discussed. She agrees History of Present Illness Chief Complaint: For EGD and colonoscopy Primary Care Provider: Moi Box MD 44 year old samoan female with worsening reflux symptoms who is here for EGD. She has a lot of anesthesia issues so we are doing screening colonoscopy at the same time Allergies Allergy/AdvReac Type Severity Reaction Status Date / Time fentanyl Allergy Intermediate EXTRAPYRAMIDAL Verified 05/09/24 12:32 REACTION midazolam AdvReac Intermediate EXTRAPYRAMIDAL Verified 05/09/24 12:32 REACTION morphine AdvReac Intermediate EXTRAPYRAMIDAL Verified 05/09/24 12:32 [From Duramorph (PF)] REACTION propofol AdvReac Intermediate EXTRAPYRAMIDAL Verified 05/09/24 12:32 REACTION Home Medications Medication Instructions Recorded Confirmed Type baclofen 10 mg tablet 10 mg PO BID 08/28/23 05/09/24 History gabapentin 300 mg capsule 300 mg PO BID 08/28/23 05/09/24 History ibuprofen 200 mg tablet (Advil) 200 mg PO Q6H PRN Pain 08/28/23 05/09/24 History vitamin C 500 mg-multivitamin with 1 tab PO DAILY PRN Other 08/28/23 05/09/24 History minerals chewable tablet (Emergen-C) norethindrone (contraceptive) 0.35 0.35 mg PO DAILY #84 tabs 12/20/23 05/09/24 Rx mg tablet omeprazole 20 mg capsule,delayed 20 mg PO BID 12/20/23 05/09/24 History release acetaminophen 500 mg tablet 1,000 mg PO TID 05/05/24 05/09/24 History (Tylenol Extra Strength) albuterol sulfate 90 mcg/actuation 1 inh inhalation QID PRN Wheezing 05/05/24 05/09/24 History aerosol inhaler calcium carbonate (Tums) 300 mg PO BID PRN Acid Reflux 05/05/24 05/09/24 History iron,carbonyl 65 mg-vitamin C 125 1 tab PO Q OTHER DAY 05/05/24 05/09/24 History mg tablet,delayed release (Vitron-C) levonorgestrel 21 mcg/24 hr (up to 21 mcg intrauterine UD 05/05/24 05/09/24 History 8 years) 52 mg intrauterine device (Mirena) multivitamin 1 tab PO QAM 05/05/24 05/09/24 History simethicone 250 mg capsule 250 mg PO DAILY PRN Digestion 05/05/24 05/09/24 History Past Med/Surg History Problem List Encounter for pre-operative examination Endometrial polyp Extremely dense tissue of both breasts on mammography Back pain Heavy menses resulting from in vitro fertilization in first trimester (Acute) Hyperemesis gravidarum (Chronic) Medical History History of anesthesia reaction EXTRAPYRAMIDAL REACTION > gets this after surgery, did not in past, but each time since 2010 has had these episodes, same day surgeries had turned into overnight stays due to this Extrapyramidal and movement disorder, unspecified gets this after surgery, did not in past, but each time since 2010 has had these episodes, same day surgeries had turned into overnight stays due to this IBS (irritable bowel syndrome) diet controlled GERD (gastroesophageal reflux disease) Iron deficiency anemia Sciatica Migraine RBBB no cards Asthma only has flare up when sick > rare res inh use Liver cyst Prediabetes diet controlled Mild tricuspid regurgitation no medication given Mild mitral regurgitation no medications given History of IBS well controlled for several years; no medications Surgical History History of dilatation and curettage History of colonoscopy 2006 or 2007 Hx of breast biopsy with clip placed > benign S/P epidural steroid injection Hx of oral surgery dental implant History of section x2 Hx of laparoscopy Apr 18, 2024 > uterine polyp removed, endometerosis removed, IUD inserted, still taking Tylenol TID for pain Hx of ovarian cystectomy Hx of wisdom tooth extraction Hx of tubal ligation H/O: myomectomy 2010 Family History Father Hypertension Stroke Uncle Colorectal cancer maternal Grandmother (Maternal) Ovarian cancer Other No significant family history Denies family history of Prostate cancer Myocardial infarction Breast cancer Social History Smoking Status: Never smoker Second Hand Exposure: No; Do You Dip or Chew Tobacco: No; Tobacco Cessation Education Requested by Patient: No Hx Alcohol Use: No Hx Substance Use: No Preferred Language: Faroese Communication Ability: Effective Metal 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 Required: No Beliefs That Will Affect Care: None marital status: Current Living Situation: Spouse Current Living Situation Comment: lives with and 4 year old daughter current occupational status: employed Other Information That Helps Us Care for You: No Feels Safe at Home: Yes Safety Concerns: Feels Safe At This Time Assistive Devices: Glasses Review of Systems All systems reviewed & are unremarkable except as noted in HPI & below Physical Exam Constitutional: WD/WN, vitals as above Neck: trachea midline, no thyromegaly Respiratory: normal respiratory effort, lungs clear to auscultation Cardiovascular: RRR, no murmur, no edema Gastrointestinal (Abdomen): normal bowel sounds, soft, nontender, no hepa tosplenomegaly ASA Classification ASA ASA2 Results & Data Vital Signs (Past 12 Hours) Vital Signs Temp Pulse Resp BP Pulse Ox O2 Del Method 05/09/24 12:35 36.6 C 57 L 24 116/89 96 Room Air
[2024-05-09] MEDS: SODIUM CHLORIDE 0.9% 500 ML IV SCH (13:11)
[2024-05-09] MEDS: ACETAMINOPHEN 1,000 MG/100 ML VIAL IV STA (13:11)
[2024-05-09] MEDS: LACTATED RINGER'S 1,000 ML IV SCH (13:11)
--- NOTE | 2024-05-09 14:00 | GI REPORT ---
[facility] Patient: JADEN HURTADO : 1980 Sex at : Female Age: 44 Years Procedure: Upper GI endoscopy Date: 05/09/2024 Attending Physician: Jose Prado MD Referring MD: Jose Prado MD Indications: - Esophageal reflux Medications: - Monitored Anesthesia Care - Propofol per Anesthesia - See the Anesthesia note for documentation of the administered medications Complications: - No immediate complications. Estimated Blood Loss: - Estimated blood loss: None. Procedure: - ASA Grade Assessment: II - A patient with mild systemic disease. - The egd scope was introduced through the mouth and advanced to the second part of the duodenum. - The upper GI endoscopy was accomplished without difficulty. - The patient tolerated the procedure well but she has an extremely wild reaction to anesthesia while waking from procedure. She was monitored in recovery. Findings: - The examined esophagus was normal. - The Z-line was regular and was found 38 cm from the incisors. - The entire examined stomach was normal. Biopsies were taken with a cold forceps for histology. - The examined duodenum was normal. Impression: - Normal esophagus. - Z-line regular, 38 cm from the incisors. - Normal stomach. Biopsied. - Normal examined duodenum. Recommendation: - Discharge patient to home (ambulatory). - Resume previous diet. - Continue present medications. - Await pathology results. - Return to referring physician as previously scheduled. - Patient has a contact number available for emergencies. The signs and symptoms of potential delayed complications were discussed with the patient. Return to normal activities tomorrow. Written discharge instructions were provided to the patient. Procedure Code(s): - 63520, Esophagogastroduodenoscopy, flexible, transoral; with biopsy, single or multiple Diagnosis Code(s): - K21.9, Gastro-esophageal reflux disease without esophagitis CPT(R) - 2023 copyright [employer]. All Rights Reserved. The CPT codes, CCI edits and ICD codes generated are intended as suggestions and were generated based on input data. These codes are preliminary and upon hcc coders review may be revised to meet current compliance and payer requirements. The provider is responsible for the final determination of appropriate codes, and modifiers. Dr. Jose Prado MD This document has been electronically signed. Note Initiated:05/09/2024 Note Completed:05/09/2024 1:59 PM [email or web address]\Provation\Results\LIVE\[id number]
--- NOTE | 2024-05-09 14:02 | GI REPORT ---
[facility] Patient: JADEN HURTADO : 1980 Sex at : Female Age: 44 Years Procedure: Colonoscopy Date: 05/09/2024 Attending Physician: Jose Prado MD Referring MD: Jose Prado MD Indications: - Screening for colorectal malignant neoplasm Medications: - Monitored Anesthesia Care - See the Anesthesia note for documentation of the administered medications Complications: - No immediate complications. Estimated Blood Loss: - Estimated blood loss: None. Procedure: - ASA Grade Assessment: II - A patient with mild systemic disease. - The adult colonoscope was introduced through the anus and advanced to the cecum, identified by appendiceal orifice and ileocecal valve. - The colonoscopy was performed without difficulty. - The quality of the bowel preparation was evaluated using the BBPS (Barton Bowel Preparation Scale) with scores of: Right Colon = 3, Transverse Colon = 3 and Left Colon = 3 (entire mucosa seen well with no residual staining, small fragments of stool or opaque liquid). The total BBPS score equals 9. - The ileocecal valve, appendiceal orifice, and rectum were photographed. Findings: - The rectum, sigmoid colon, descending colon, splenic flexure, transverse colon, hepatic flexure, ascending colon and cecum appeared normal. Impression: - The rectum, sigmoid colon, descending colon, splenic flexure, transverse colon, hepatic flexure, ascending colon and cecum are normal. - No specimens collected. Recommendation: - Discharge patient to home (ambulatory). - Continue present medications. - Repeat colonoscopy in 10 years for screening purposes. - Resume previous diet. - Return to primary care physician. - Patient has a contact number available for emergencies. The signs and symptoms of potential delayed complications were discussed with the patient. Return to normal activities tomorrow. Written discharge instructions were provided to the patient. Procedure Code(s): - G0121, Colorectal cancer screening; colonoscopy on individual not meeting criteria for high risk Diagnosis Code(s): - Z12.11, Encounter for screening for malignant neoplasm of colon CPT(R) - 202 copyright [employer]. All Rights Reserved. The CPT codes, CCI edits and ICD codes generated are intended as suggestions and were generated based on input data. These codes are preliminary and upon corporate travel coordinator review may be revised to meet current compliance and payer requirements. The provider is responsible for the final determination of appropriate codes, and modifiers. Dr. Jose Prado MD This document has been electronically signed. Note Initiated:05/09/2024 Note Completed:05/09/2024 2:01 PM [email or web address]\Data\Provation\Results\LIVE\[id number]
[2024-05-09] MEDS: diphenhydrAMINE 50 MG/ML VIAL IV STA (14:18)
[2024-05-09] MEDS ORDERED: PROPOFOL IV EMULSION 10 MG/ML 20 ML VIAL IV ONE (14:19)
[2024-05-09] MEDS: diphenhydrAMINE 50 MG/ML VIAL ONE (15:53)
--- NOTE | 2024-05-09 16:31 | Anesthesiology Progress Note ---
Date of Service May 09, 2024 Anesthesia Post Procedure Vital Signs Vital Signs: Temp Pulse Resp BP BP Pulse Ox O2 Del Method 05/09/24 16:15 36.5 C 56 L 18 114/69 98 Nasal Cannula 05/09/24 16:05 48 L 15 115/65 99 Nasal Cannula 05/09/24 15:55 55 L 17 115/70 98 Nasal Cannula 05/09/24 15:45 54 L 16 133/61 98 Nasal Cannula 05/09/24 15:35 70 19 107/64 98 Nasal Cannula 05/09/24 15:25 54 L 17 114/66 99 Nasal Cannula 05/09/24 15:15 60 19 118/64 98 Nasal Cannula 05/09/24 15:05 59 L 18 120/68 97 Nasal Cannula 05/09/24 14:55 62 27 H 96/74 L 96 Nasal Cannula 05/09/24 14:45 67 22 115/73 97 Nasal Cannula 05/09/24 14:35 64 24 110/64 95 Room Air 05/09/24 14:25 78 22 95 Room Air 05/09/24 14:15 111 H 35 H 94 Room Air 05/09/24 14:05 88 30 H 94 Room Air 05/09/24 13:58 36.2 C L 113 H 31 H 126/94 94 Room Air 05/09/24 12:35 36.6 C 57 L 24 116/89 96 Room Air O2 Flow Rate 05/09/24 16:15 2 05/09/24 16:05 2 05/09/24 15:55 2 05/09/24 15:45 2 05/09/24 15:35 2 05/09/24 15:25 2 05/09/24 15:15 2 05/09/24 15:05 2 05/09/24 14:55 2 05/09/24 14:45 2 05/09/24 14:35 05/09/24 14:25 05/09/24 14:15 05/09/24 14:05 05/09/24 13:58 05/09/24 12:35 Pain Intensity Abdomen: Pain Intensity: 2 Back: Pain Intensity: 4 Transfer of Care Handoff Completed per policy Notes Mental Status: alert / awake / arousable Patient Amnestic to Procedure: Yes Nausea / Vomiting: adequately controlled Pain: adequately controlled Airway Patency, RR, SpO2: stable & adequate BP & HR: stable & adequate Hydration State: stable & adequate Anesthetic Complications: see Notes below Notes: s/p EGD/colo under MAC with propofol and precedex. The patient has unspecified movement disorder with associated with various anesthetic agents over a period over many years. pt experienced similar episode upon completion of procedure. violent head roll, flailing uncontrolled limb movements. Required multiple OR staff to restrain patient. Hemodynamically stable through episode, protecting own airway, respirations adequate. pt responding to verbal stimulus appropriate at the time, however, is amnestic to the event. Movements continued to PACU where an attempt was made to allow for self termination. After 20 minutes, patient still requiring restraining and was administered 50mg Diphenhydramine and 10 mcg Precedex. Symptoms gradually resolved but still intermittently occurring with enough severity to preclude discharge. Will admit to hospital service for further observation.
--- NOTE | 2024-05-09 18:13 | History & Physical Report ---
Date of Service May 09, 2024 Assessment & Plan (1) Back pain: Plan Patient is a 44-year-old female with a past medical history significant for IBS, iron deficiency anemia, GERD admitted for observation after she had episodes of choreiform movements coming out of anesthesia after a colonoscopy today. Per report from the anesthesiologist today, as she was being woken up after anesthesia she appeared to have convulsive like episodes and extrapyramidal movements that lasted about 20 minutes in length and required 5 people to restrain her. States she was given Benadryl 50 mg and 10 mcg of Precedex which seemed to help her symptoms. Notes that since then she has been having intermittent spasms but there is concerned that once discharged they will persist overnight. Anesthesiologist notes that she has always been alert even throughout the episodes. Requesting admission for observation. Per patient and at bedside, she has had episodes like this repeatedly over the last 10 years whenever she has had anesthesia. states that she will have the jerking and kicking where he is able to control her upper torso but often requires help to fully restrain her. Choreiform movements after anesthesia EEG pending Head CT pending Will obtain blood work PRN IV Benadryl 50 mg every 6 hours neurology consult, appreciate recs Bradycardia noted heart rate in the 40s to 50s EKG pending, consider echo if bradycardia persistent and not transient Possibly in setting of use of anesthesia meds such as Precedex Continue to monitor on telemetry GERD Patient had EGD today for reflux, unremarkable grossly Patient also requested a colonoscopy for family history of colon cancer which was also done today Continue Home PPI Chronic back pain Continue home baclofen and gabapentin DVT prophylaxis: Subcu heparin Diet: Gluten-free Dispo: Admit to PCU telemetry History of Present Illness Chief Complaint: abnormal movements Primary Care Provider: Moi Box MD Patient is a 44-year-old female with a past medical history significant for IBS, iron deficiency anemia, GERD admitted for observation after she had episodes of choreiform movements coming out of anesthesia after a colonoscopy today. Per report from the anesthesiologist today, as she was being woken up after anesthesia she appeared to have convulsive like episodes and extrapyramidal movements that lasted about 20 minutes in length and required 5 people to restrain her. States she was given Benadryl 50 mg and 10 mcg of Precedex which seemed to help her symptoms. Notes that since then she has been having intermittent spasms but there is concerned that once discharged they will persist overnight. Anesthesiologist notes that she has always been alert even throughout the episodes. Requesting admission for observation. Per patient and at bedside, she has had episodes like this repeatedly over the last 10 years whenever she has had anesthesia. states that she will have the jerking and kicking where he is able to control her upper torso but often requires help to fully restrain her. Allergies Allergy/AdvReac Type Severity Reaction Status Date / Time fentanyl Allergy Intermediate EXTRAPYRAMIDAL Verified 05/09/24 12:32 REACTION midazolam AdvReac Intermediate EXTRAPYRAMIDAL Verified 05/09/24 12:32 REACTION morphine AdvReac Intermediate EXTRAPYRAMIDAL Verified 05/09/24 12:32 [From Duramorph (PF)] REACTION peanut AdvReac Intermediate Gastrointestinal Verified 05/09/24 16:52 Upset propofol AdvReac Intermediate EXTRAPYRAMIDAL Verified 05/09/24 12:32 REACTION Home Medications Medication Instructions Recorded Confirmed Type baclofen 10 mg tablet 10 mg PO BID 08/28/23 05/09/24 History gabapentin 300 mg capsule 300 mg PO BID 08/28/23 05/09/24 History ibuprofen 200 mg tablet (Advil) 200 mg PO Q6H PRN Pain 08/28/23 05/09/24 History vitamin C 500 mg-multivitamin with 1 tab PO DAILY PRN Other 08/28/23 05/09/24 History minerals chewable tablet (Emergen-C) norethindrone (contraceptive) 0.35 0.35 mg PO DAILY #84 tabs 12/20/23 05/09/24 Rx mg tablet omeprazole 20 mg capsule,delayed 20 mg PO BID 12/20/23 05/09/24 History release acetaminophen 500 mg tablet 1,000 mg PO TID 05/05/24 05/09/24 History (Tylenol Extra Strength) albuterol sulfate 90 mcg/actuation 1 inh inhalation QID PRN Wheezing 05/05/24 05/09/24 History aerosol inhaler calcium carbonate (Tums) 300 mg PO BID PRN Acid Reflux 05/05/24 05/09/24 History iron,carbonyl 65 mg-vitamin C 125 1 tab PO Q OTHER DAY 05/05/24 05/09/24 History mg tablet,delayed release (Vitron-C) levonorgestrel 21 mcg/24 hr (up to 21 mcg intrauterine UD 05/05/24 05/09/24 History 8 years) 52 mg intrauterine device (Mirena) multivitamin 1 tab PO QAM 05/05/24 05/09/24 History simethicone 250 mg capsule 250 mg PO DAILY PRN Digestion 05/05/24 05/09/24 History Past Med/Surg History Problem List Encounter for pre-operative examination Endometrial polyp Extremely dense tissue of both breasts on mammography Back pain Heavy menses resulting from in vitro fertilization in first trimester (Acute) Hyperemesis gravidarum (Chronic) Medical History History of anesthesia reaction EXTRAPYRAMIDAL REACTION > gets this after surgery, did not in past, but each time since 2010 has had these episodes, same day surgeries had turned into overnight stays due to this Extrapyramidal and movement disorder, unspecified gets this after surgery, did not in past, but each time since 2010 has had these episodes, same day surgeries had turned into overnight stays due to this IBS (irritable bowel syndrome) diet controlled GERD (gastroesophageal reflux disease) Iron deficiency anemia Sciatica Migraine RBBB no cards Asthma only has flare up when sick > rare res inh use Liver cyst Prediabetes diet controlled Mild tricuspid regurgitation no medication given Mild mitral regurgitation no medications given History of IBS well controlled for several years; no medications Surgical History History of dilatation and curettage History of colonoscopy 2006 or 2007 Hx of breast biopsy with clip placed > benign S/P epidural steroid injection Hx of oral surgery dental implant History of section x2 Hx of laparoscopy Apr 18, 2024 > uterine polyp removed, endometerosis removed, IUD inserted, still taking Tylenol TID for pain Hx of ovarian cystectomy Hx of wisdom tooth extraction Hx of tubal ligation H/O: myomectomy 2010 Family History Father Hypertension Stroke Uncle Colorectal cancer maternal Grandmother (Maternal) Ovarian cancer Other No significant family history Denies family history of Prostate cancer Myocardial infarction Breast cancer Social History Smoking Status: Never smoker Second Hand Exposure: No; Do You Dip or Chew Tobacco: No; Tobacco Cessation Education Requested by Patient: No Hx Alcohol Use: No Hx Substance Use: No Preferred Language: Uzbek Communication Ability: Effective Mediation Commissioner Required: No Beliefs That Will Affect Care: None marital status: Current Living Situation: Spouse Current Living Situation Comment: lives with and 4 year old daughter current occupational status: employed Other Information That Helps Us Care for You: No Feels Safe at Home: Yes Safety Concerns: Feels Safe At This Time Assistive Devices: None Review of Systems Review of Systems: All systems reviewed & are unremarkable except as noted in HPI & below Physical Exam Physical Exam: Patient was seen while still down in the PACU: General: Alert, orientedx3. No acute distress, laying in bed Skin: No noted rashes or bruises Psych: Appropriate mood and affect Neuro: No gross deficits, Cranial nerves II through XII grossly intact, strength 5 out of 5 bilaterally HEENT: NC/AT CV: RRR Resp: Breath sounds clear,, no increased effort of breathing. Abdomen: Soft, nontender Extremities: No edema in lower extremities bilaterally. Results & Data Results & Data Vital Signs (Past 12 Hours) Vital Signs Temp Pulse Resp BP BP Pulse Ox O2 Del Method 05/09/24 17:00 46 L 16 118/66 99 Nasal Cannula 05/09/24 16:45 47 L 17 120/69 99 Nasal Cannula 05/09/24 16:30 48 L 17 119/65 99 Nasal Cannula 05/09/24 16:15 36.5 C 56 L 18 114/69 98 Nasal Cannula 05/09/24 16:05 48 L 15 115/65 99 Nasal Cannula 05/09/24 15:55 55 L 17 115/70 98 Nasal Cannula 05/09/24 15:45 54 L 16 133/61 98 Nasal Cannula 05/09/24 15:35 70 19 107/64 98 Nasal Cannula 05/09/24 15:25 54 L 17 114/66 99 Nasal Cannula 05/09/24 15:15 60 19 118/64 98 Nasal Cannula 05/09/24 15:05 59 L 18 120/68 97 Nasal Cannula 05/09/24 14:55 62 27 H 96/74 L 96 Nasal Cannula 05/09/24 14:45 67 22 115/73 97 Nasal Cannula 05/09/24 14:35 64 24 110/64 95 Room Air 05/09/24 14:25 78 22 95 Room Air 05/09/24 14:15 111 H 35 H 94 Room Air 05/09/24 14:05 88 30 H 94 Room Air 05/09/24 13:58 36.2 C L 113 H 31 H 126/94 94 Room Air 05/09/24 12:35 36.6 C 57 L 24 116/89 96 Room Air O2 Flow Rate 05/09/24 17:00 2 05/09/24 16:45 2 05/09/24 16:30 2 05/09/24 16:15 2 05/09/24 16:05 2 05/09/24 15:55 2 05/09/24 15:45 2 05/09/24 15:35 2 05/09/24 15:25 2 05/09/24 15:15 2 05/09/24 15:05 2 05/09/24 14:55 2 05/09/24 14:45 2 05/09/24 14:35 05/09/24 14:25 05/09/24 14:15 05/09/24 14:05 05/09/24 13:58 05/09/24 12:35
[2024-05-09] MEDS ORDERED: diphenhydrAMINE 50 MG/ML VIAL IV PRN (18:19)
[2024-05-09] MEDS ORDERED: ONDANSETRON INJ 2 MG/ML 2 ML VIAL IV PRN (18:21)
[2024-05-09] MEDS ORDERED: ACETAMINOPHEN 500 MG TAB PO PRN (18:22)
--- OUTSIDE RECORDS SUMMARY | 2024-05-09 18:48 | External Medical Summary | Continuity of Care Document ---
Author Name Unknown Organization [facility] Address [address] [place] [address] [id number] Care Team Providers Care Nursing Resident Name Role Phone Yoselynnydia Moi Pierce Primary Care Physician [phone] [id number] Date(s): 04/18/24 - 04/19/[address] [id number] [phone] Discharge Disposition: Home or Self Care Attending Physician: MD Aggie, Yovana Zimmerman Allergies, Adverse Reactions, Alerts Substance Criticality Severity Reaction Reaction Severity Status midazolam nausea, vomiting Act kaushal morphine Unable to assess criticality Severe Extrapyramidal symptom Active propofol Unable to assess criticality Severe Extrapyramidal symptom Active Duramorph PF extrapyramidal symptoms Active peanuts Unable to assess criticality Severe Anaphylaxis Active fentaNYL Unable to assess criticality Severe Extrapyramidal symptom Active Functional Status 04/19/24 Neurological Symptoms None ADLs Minimal assistance Facial Symmetry Symmetric Gait Steady Swallowing Difficulty None Level of Consciousness Neuro Alert Hallucinations Present None History of Fall in Last 3 Months Rhodes N o Presence of Secondary Diagnosis Rhodes Ye s Use of Ambulatory Aid Rhodes None/bedrest /nurse assist IV/Heparin Lock Fall Risk Rhodes Yes Gait/Transferring Fall Risk Rhodes Normal /bedrest/immobile Mental Status Fall Risk Rhodes Oriented t o own ability Rhodes Fall Risk Score 35 Rhodes Fall Risk Low Risk Speech Pattern Clear Medications baclofen Start: 03/04/24 11:27:00 AM EDT, 10 mg =, PO, 2x daily Start Date: 03/04/24 Status: Ordered Benadryl 12.5 mg oral tablet, chewable Start: 04/19/24 8:41:00 AM EDT, 2 tab, PO, tid, Disp# 4 tab, Refills: 0, PRN: as needed for allergy symptoms, Pharmacy: [facility] Start Date: 04/19/24 Status: Ordered gabapentin Start: 03/04/24 11:27:00 AM EDT, 300 mg =, PO, Daily Start Date: 03/04/24 Status: Ordered ibuprofen 600 mg oral tablet Start: 10/17/19 11:36:00 AM EST, 1 tab, PO, qid, Disp# 30 tab, Refills: 3, PRN: as needed for pain, Pharmacy: [facility] Start Date: 10/17/19 Status: Ordered omeprazole Start: 03/04/24 11:29:00 AM EDT, 20 mg =, PO, Daily Start Date: 03/04/24 Status: Ordered simethicone Start: 04/07/24 1:17:00 PM EDT Start Date: 04/07/24 Status: Ordered Toradol 10 mg oral tablet Start: 04/18/24 11:07:00 AM EDT, 1 tab, PO, q6h, Disp# 20 tab, PRN: as needed for pain, Pharmacy: [facility] Start Date: 04/18/24 Status: Ordered traMADol 50 mg oral tablet Start: 04/18/24 11:17:00 AM EDT, 0.5 tab, PO, q4h, Disp# 5 tab, PRN: as needed for pain, Pharmacy: [facility] Start Date: 04/18/24 Status: Ordered Tums Start: 03/04/24 11:29:00 AM EDT Start Date: 03/04/24 Status: Ordered Tylenol 500 mg oral tablet Start: 10/17/19 11:35:00 AM EST, 2 tab, PO, q6h, PRN: Fever/Mild Pain Start Date: 10/17/19 Status: Ordered unknown medication Start: 03/04/24 11:27:00 AM EDT, OTC iron Start Date: 03/04/24 Status: Ordered Mental Status 04/18/24 Primary Language Grenadian Problem List Condition Confirmation Course Effective Dates Status H ealth Status Informant Back pain Confirmed Active Endometriosis Confirmed Active History of section Confirmed Active with history of uterine myomectomy Confirmed Active History of anesthesia complications Confirmed Active Hx gestational diabetes Confirmed Active Liver cyst Confirmed Active Pre-diabetes Confirmed Active Bundle branch block, right Confirmed Active Low iron Confirmed Active Back spasm Confirmed Active Procedures Procedure Date Related Diagnosis Body Site Status delivery 2019 Complet ed Tubal ligation 2019 Completed Procedure 1 2019 Completed delivery 2014 Complet ed Procedure 2013 Completed Procedure 2 Completed Procedure 3 Completed Procedure 4 Completed Procedure 5 Completed [place] tooth Completed 1IVF 2Rt breast bx 3IVF 4Dental/pulled 5Open - fibroid Results Most recent to oldest [Reference Range]: 1 Beta HCG Ref Range [negative] (04/18/24 9:14 AM) Beta hCG Ql Negative 1 (04/18/24 9:14 AM) 1Result Comment: Performed at: [address] [place], [place] [id number] Vital Signs Most recent to oldest [Reference Range]: 1 2 3 Height 160.02 cm (04/18/24 9:16 AM) Patient Weight 62.8 kg (04/18/24 9:16 AM) Body Mass Index 24.53 kg/m2 (04/18/24 11:30 PM) 24.53 kg/m2 (04/18/24 9:16 AM) Temperature [36.5-37.9 DegC] 36.4 DegC *LOW* (04/19/24 10:06 AM) 36.3 DegC *LOW* (04/19/24 8:17 AM) 36.4 DegC *LOW* (04/19/24 6:00 AM) Heart Rate 71 bpm (04/19/24 10:06 AM) 73 bpm (04/19/24 8:17 AM) 72 bpm (04/19/24 6:00 AM) Respiratory Rate 16 br/min (04/19/24 10:06 AM) 16 br/min (04/19/24 8:17 AM) 16 br/min (04/19/24 6:00 AM) Blood Pressure 118/62mmHg (04/19/24 10:06 AM) 120/81mmHg (04/19/24 8:17 AM) 104/63mmHg (04/19/24 6:00 AM) Mean Blood Pressure 94 mmHg (04/19/24 8:17 AM) 76 mmHg (04/19/24 6:00 AM) 73 mmHg (04/18/24 11:30 PM) Cuff Pulse Pressure 56 mmHg (04/19/24 10:06 AM) 39 mmHg (04/19/24 8:17 AM) 41 mmHg (04/19/24 6:00 AM) BP Location # 1 Left Arm (04/19/24 10:06 AM) Left Arm (04/19/24 8:17 AM) Left Arm (04/19/24 6:00 AM) Social History Social History Type Response Smoking Status Never smoked cigaret nithin Sex Female Sex Representation Female (finding) Implantable Device List Procedure Provider Procedure Date Device Type Site Unknown Unknown 04/18/24 Unknown Unknown Device Identifier Serial Number Lot or Batch Number Manufacturing Date Expiration Date Distinct Identification Code MRI Safety Implantable Status Assigning Authority Unknown Unknown [id number] Unknown 06/18/26 Unknown Unknown Active Un known History and physical note * MD Aggie, Yovana Zimmerman: PERFORM Event Display: H&P Update Authored Date: [id number] SURGICAL HISTORY AND PHYSICAL UPDATE - NO CHANGE Name: JADEN HURTADO Patient Number: [id number] : 1980 Date of Service: 04/18/2024 Patient identity, procedure and procedure site were identified by me, the attending physician. I have personally seen and examined the patient. The History and Physical was reviewed, and there are nochanges in the patient's condition. I have confirmed that the necessity for the procedure is still p resent. Electronic Signature on File Electronically Reviewed/Signed by: Yovana Marcial MD Author Signature Dt/Tm:04/18/2024 11:07 AM Division of Women's Health [facility] * MD Tejas, Michael Nichols: MODIFY, PERFORM, SIGN, VERIFY DO Vaughan Quoc-Tuan: MODIFY Event Display: Anes H&P Authored Date: [id number] Patient: JADEN HURTADO Age: 44 years Sex: Female : 1980 Associated Diagnoses: None Author: MD Lazaro Vladimir V Preoperative Information Pre-Operative Diagnosis: Endometrial Polyp . Anesthiesia Preop Info: Procedure: ROBOTIC LAPAROSCOPY, EXCISION OF ENDOMETRIOSIS Date: 04/18/24 11:10 Surgeons: MD Marcial Linda J Diagnosis: ENDOMETRIAL POLYP, PELVIC PAIN Procedure: HYSTEROSCOPY WITH DILATION AND CURETTAGE, MYOSURE POLYPECTOMY, MIRENA IUD PLACEMENT Date: 04/18/24 11:10 Surgeons: MD Marcial Linda J Diagnosis: ENDOMETRIAL POLYP, PELVIC PAIN, CONTRACEPTION Procedure: HYSTEROSCOPY WITH DILATION AND CURETTAGE, MYOSURE POLYPECTOMY, MIRENA IUD PLACEMENT Date: 04/18/24 11:10 Surgeons: MD Marcial Linda J Diagnosis: ENDOMETRIAL POLYP, PELVIC PAIN Procedure: ROBOTIC LAPAROSCOPY, EXCISION OF ENDOMETRIOSIS Date: 04/18/24 11:10 Surgeons: MD Marcial Linda J Diagnosis: ENDOMETRIAL POLYP, PELVIC PAIN, CONTRACEPTION . Nursing Information: Nurse Pre Procedure Screening Assessment 04/03/2024 12:48 EDT Cardiovascular History Of Other: cardiac w/u r/t palpitations, found to be r/t alergy medications, reports: incomplete right BBB, mild mitral regurg Anesthesia History Yes PostOp Nausea & Vomiting Yes Pulmonary History Of Reactive airway stable, Other: inhaler use during times of illness Functional Capacity 4-6 METs Moderate Climbing a flight of stairs, No chest pain or dyspnea with this level of exercise Endocrine History None Reported Gastrointestinal History Of GERD Hematologic History Of Other: AUB: fe supplement Neurologic History Of Chronic Pain, Other: chronic pelvic/back pain Orthopedic History Of Chronic back pain, Other: sciatica . History of Present Illness JADEN HURTADO a 44 Yearsold,65 kg Femalewith a past medical history of GERD, chronic back pain, chronic anemia, right bundle branch block, endometrial polyp and pelvic pain presenting for the above procedure. NPO: Appropriate for 04/18/2024. PREVIOUS AIRWAY/ANESTHETICS: No airway history documented in EMR. "- patient has a history of EPS with anesthesia and also reports that following anesthesia for bothtooth extraction and colonoscopy she took a longer than anticipated time to wake - Currently undergoing work-up for PUD, cannot take NSAIDs. - Has previously been told to stay away from all medications in the opioid drug class, however has taken T3 and done well with this before." STUDIES: US pelvis transvaginal non-OB - 06/20/2023 Impression: 1. Small amount of endometrial fluid is present. 2. Posterior subserosal fibroid measuring 1.6 x 1 x 1.3 cm Medical History Medical Devices: Medical Devices: none . Health Status Allergies: Allergic Reactions (Selected) Severe FentaNYL- Extrapyramidal symptom. Morphine- Extrapyramidal symptom. Peanuts- Anaphylaxis. Propofol- Extrapyramidal symptom. Severity Not Documented Duramorph PF- Extrapyramidal symptoms. Midazolam- Nausea, vomiting.. Medications: Medication List (Selected) Prescriptions Prescribed ibuprofen 600 mg oral tablet: 1 tab, PO, qid, PRN: as needed for pain, 30 tab, 3 Refill(s) Documented Medications Documented Tums: Tylenol 500 mg oral tablet: 2 tab, PO, q6h, PRN: Fever/Mild Pain baclofen: 10 mg, PO, 2x daily gabapentin: 300 mg, PO, Daily omeprazole: 20 mg, PO, Daily simethicone: unknown medication: OTC iron. Histories Procedure History: Tubal ligation ([id number]) in 2020 at 40 Years. delivery ([id number]) in 2019 at 40 Years. Procedure ([id number]) in 2019 at 39 Years. Comments: 03/04/2024 11:32 SHARI Brenner MA, Amy E IVF delivery ([id number]) in 2014 at 35 Years. Procedure ([id number]) in 2012 at 33 Years. [place] tooth ([id number]). Procedure ([id number]). Comments: 03/04/2024 11:31 SHARI Brenner MA, Amy E Open - fibroid Procedure ([id number]). Comments: 03/04/2024 11:32 SHARI Brenner MA, Amy E Dental/pulled Procedure ([id number]). Comments: 03/04/2024 11:31 SHARI Brenner MA, Amy E IVF Procedure ([id number]). Comments: 03/04/2024 11:35 SHARI Brenner MA, Amy E Rt breast bx. 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 Never smoked cigarettes Other Tobacco Use: Never used other tobacco products Alcohol: Recreational Drugs: . Physical Examination VS/Measurements: Weight 62.8 kg. Airway: Mallampati classification: II (soft palate, fauces, uvula visible). Mouth: Within normal limits, Teeth ( Within normal limits ). Respiratory: Breath sounds: Within normal limits. Cardiovascular: Normal rate, Regular rhythm. Anesthesiologist Assessment and Plan Problems: No active cardiac conditions, Patient describes previous "bad" reaction to anesthesia (probably extrapyramidal symptoms) with propofol, midazolam and fentanyl. Plan of anesthesia for current procedure was discussed in details. The plan includes induction withetomidate and fentanyl. Anesthesia will be maintained with sevoflurane. Will avoid midazolam. Patient agreed with the plan.. Risk of major adverse cardiac event (Revised Cardiac Risk Index): 0 = 0.4%. Cardiovascular risk associated with the procedure: Low (<1%). ASA Classification: Class II. Anesthetic Plan: Premedication: Oral. Anesthetic technique discussed: General anesthesia. Induction discussed: Intravenously. Airway plan discussed: Laryngeal mask airway, Oral endotracheal tube. Risks discussed: Nausea-vomiting, Headache, Sore throat, Dental injury, Eye injury, Allergic reaction, Serious complications, Nerve damage, Aspiration. Informed consent: Signed by patient. History, Physical Exam, Assessment and Plan Completed: 04/18/2024 10:45:00, MD Tejas, Michael Bonner Electronic Signature on File Electronically Reviewed/Signed by: Michael Lazaro MD Author Signature Dt/Tm:04/18/2024 11:04 AM Department of Anesthesia [facility] Surgical operation note * MD Rosendo, Fernando Parikh: PERFORM Event Display: .Operative Report Authored Date: [id number] Name:JADEN HURTADO Patient Number:[id number] :1980 Date of Service:04/18/2024 SURGEON: Yovana Marcial MD ASSISTANTS: MD Antonio Matos MD PREOPERATIVE DIAGNOSIS: Abnormal uterine bleeding Chronic pelvic pain POSTOPERATIVE DIAGNOSIS: Same OPERATION PERFORMED: Robotic Assisted Operative laparoscopy with excision of endometriosis Hysteroscopy, Dilation and Curettage, Polypectomy Mirena IUD Insertion ANESTHESIA: General endotracheal ESTIMATED BLOOD LOSS:10 mL. URINE OUTPUT: 20 cc IV FLUIDS: see anesthesia record COMPLICATIONS: None. PATHOLOGY: 1. Leftinfraovarian fossa peritoneum 2. Right infraovarian fossa peritoneum 3. Endometrial polyps FINDINGS: Normal abdominal survey including liver, stomach, diaphragm, and appendix.Normal appearing uterus, normal appearing ovariesbilaterally. Fallopian tubessurgically absent bilaterally.Bilateral infraovarian fossa notable forstippled appearance, no obvious endometriotic lesions. Normal posterior cul de sac. Bladder notable for scar, otherwise normal peritoneum. INDICATIONS: 44 yo with a hx of chronic pelvic pain, andknown endometrial polyps presented to diagnostic laparoscopy,hysteroscopy, andMirena IUD placement. DESCRIPTION OF PROCEDURE: After informed consent was reviewed with the patient, she was taken to the operating room with an IV running. General anesthesia was obtained, and she was prepped and drapedin a modified lithotomy position [facility]. Her hands were tucked at her side, her fingerswere safety padded and checked. The cutter head sharpener was secured to the operating table. Her bladder wasdrained via transurethral Puga catheter. A Hulka tenaculum placed for uterine manipulation. Attention was turned to the umbilicus where a 8mm vertical intraumbilical skin incision was made and a Veress needle was inserted. High opening pressure noted twice. Directentry was performed with an8mm trocar. Intraperitoneal placement was confirmed without bowel or vascular injury visualized.The abdomen was insuflatted to 20 mmHg. The patient was placed in Trendelenburg position. 8mm portswere placed in the right and left lower quadrants, and right upper quadrantunder direct visualization with the findings as noted. An additional 5mm port was placed in the left upper quadrant. The [employer] Xi robotic system was docked in the usual fashion. Surgical images were captured. The intraabd ominal pressure was decreased to 15mmHg. Above findings were noted. We turned our attention to the left infraovarian fossa.A linear incision was made parallel to the ureter, and then the ureter was mobilized off the medial leaf of the broad ligament and again care was taken to mobilize underlying vascular structures as well, and the peritoneum on this infraovarian fossa was excised from the undersurface of the ovary all the way to the left-sided uterosacral ligament and distally to the insertion of the uterine vessels. We turned our attention to the right infraovarian fossa. A linear incision was again made parallel to the ureter and the peritoneum was reflected posteriorly with care to mobilize the underlying uterine vasculature, internal iliac artery, and ureter.The peritoneum on this infraovarian fossa wasexcised from the undersurface of the ovary all the way to the right-sided uterosacral ligament and distally to the insertion of the uterine vessels. The sites were noted to be hemostatic. All ports were removed. All incisions were closed with 4-0Monocrylsuture and dermal adhesive. A speculum was placed in the vagina. The Hulka tenaculum was removed. The cervix was serially dilated. A 5.5 mm 0-degree hysteroscope was inserted. Above findings were noted. The left and right tubal ostia was visualized and appeared patent. Polypectomy was performed with Myosure Lite. Fluid deficit 100 cc. Total operative time1.5 minutes. The tenaculum was removed and the sites were hemostatic. The speculum was removed. Mirena IUD Lot#[id number] Exp was placed according to agricultural inspector's instructions without difficulty. All instruments were removed from the vagina. The patient was taken out of Trendelenburg and lithotomy. Anesthesia was reversed. The patient tolerated the procedure well. All counts were reported to me as correct. The patient was transferred to recovery in stable condition. The attending Dr. Yovana Marcial was present and scrubbed throughout the entire procedure. Signed: Fernando Robbins MD ([facility] Fellow) Electronic Signature on File Electronically Reviewed/Signed by: Fernando Robbins M.D. Author Signature Dt/Tm:04/18/2024 02:29PM [facility] Women[facility] * MD Marcial Linda J: PERFORM Event Display: .Operative Report Authored Date: [id number] I was physically present and actively participated throughout the entire procedure.I have personally reviewed the following dictation and agree with the report as documented in thefellow's noteabove. Yovana Marcial MD Electronic Signature on File Electronically Reviewed/Signed by: Yovana Marcial MD Author Signature Dt/Tm:04/18/2024 02:46 PM [facility] Women[facility] Discharge instructions * Todd Figueroa MD, Sofia: PERFORM Event Display: Patient Discharge Instructions Authored Date: [id number] JADEN HURTADO CONCETTA :1980 Visit Date:04/18/2024 Patient Discharge Instructions [facility] For medical concerns, call: . Date of Admission:04/18/2024 Date of Discharge:04/19/2024 Physician:MD Marcial Linda J Service:Gynecology Discharge Disposition:home . Advance Directive:Living will, Health Care Power of [employer] Reason for Hospitalization Surgery Your Diagnoses abnormal uterine bleeding, fibroids My Health Patient Portal: [employer] makes it easy for you to manage your health information online. My [employer] is a free service that provides you instant, secure access to your medical information anytime, anywhere. Sign in or set up your account today at [facility] [place].[facility] hospitalCar[facility]ale.[employer] Thank you for allowing us to assist you with your healthcare needs. If you need additional community resources, [place] can help at https://www.pa211.org. 211 can assist you in connecting with social programs based on your unique needs and locations. 211 is an anonymous search that can help you locate resources for: Food, Housing, Transportation, Goods, Education and Healthcare. Medications What How Much When Instructions Next Dose New diphenhydrAMINE (Benadryl 12.5 mg oral tablet, chewable) 2 tab(s) by mouth 3 times daily as needed for as needed for allergy symptoms Pickup at [facility] [place] New ketorolac (Toradol 10 mg oral tablet) 1 tab(s) by mouth Every 6 hours as needed for as needed for pain Pickup at [facility] New traMADol (traMADol 50 mg oral tablet) 0.5 tab(s) by mouth Every 4 hours as needed for as needed for pain Pickup at [facility] Unchanged acetaminophen (Tylenol 500 mg oral tablet) 2 tab(s) by mouth Every 6 hours as needed for Fever/Mild Pain Unchanged baclofen 10 Milligram by mouth 2x daily Unchanged calcium carbonate (Tums) Unchanged gabapentin 300 Milligram by mouth Once daily Unchanged ibuprofen (ibuprofen 600 mg oral tablet) 1 tab(s) by mouth 4 times daily as needed for as needed for pain Unchanged omeprazole 20 Milligram by mouth Once daily Unchanged simethicone Unchanged unknown medication OTC iron Pharmacy Information [facility] [place]: [address] [place] [address] [place] Acevedo [phone] Allergies fentaNYL(Severe)Extrapyramidal symptom morphine(Severe)Extrapyramidal symptom peanuts(Severe)Anaphylaxis propofol(Severe)Extrapyramidal symptom Duramorph PFextrapyramidal symptoms midazolamnausea, vomiting What to do next Instructions From Your Doctor PAIN CONTROL -You were given a prescription for pain medication (oxycodone) to take after your surgery. You needto take this medication, as directed. If your pain is not relieved by this medication or becomes worse, please call our office. If you choose not to take the prescribed pain medication you may take an over the counter pain reliever such as Tylenol/Acetaminophen or NSAIDs such as Motrin/Advil/Aleve/Ibuprofen. Do not exceed the recommended daily dose. -You may experience some chest, abdominal, or shoulder discomfort for a few days after your surgery. This discomfort is due to the gas that was instilled into the abdomen during surgery. Your body will absorb this gas within 24 to 48 hours. Lying flat or applying heat to your abdomen may help to relieve this discomfort. You may also try Mint tea or Simethicone. CARE OF YOUR INCISIONS -Keep your incisions clean and dry. A small amount of blood tinged or clear drainage from the incisions is normal but you should not have heavy drainage. If this should occur, call our office. -Your incisions are closed with absorbable suture, as well as surgical glue that will fall off likea scab. -Bruising around your incision sites is normal. As your incisions heal, they may change color from dark purple to yellow and may be itchy. You may also experience numbing, tingling or burning for a few months after surgery. This is normal and is caused from the stretching or cutting of very small nerves that go to the skin on the abdomen and is not a cause for concern. -The color of your incision will fade and become less noticeable over time. This may take 6 to 12 months. BOWEL FUNCTION -Both surgery and narcotic pain medication can cause constipation so it is important to stimulate your bowels soon after surgery. You should be passing gas by the time you are discharged from the hospital. To prevent constipation the following are suggested: -Take a stool softener such as Colace, daily. -Drink plenty of fluids8 to 10 glasses a day. -Eat prunes or drink a glass of prune juice in the morning or at night before bed. Prunes contain anatural laxative as well as fiber. Warmed prune juice and stewed prunes will be the most effective. -Add fruit and bran to your diet. -If you require a laxative use either Milk of Magnesia or Miralax. -Abdominal bloating is normal for up to 2 to 4 weeks after surgery and will go away by itself. Surgery irritates and slows down the intestines causing them to retain more gas and stool. VAGINAL BLEEDING -Light vaginal bleeding, spotting, or brown discharge may occur and can last up to 2 weeks after surgery. If you experience heavy bleeding (bleeding that soaks a pad in one hour) or bright red vaginal bleeding, call our office. SEXUAL INTERCOURSE -Do not place anything in the vagina for 2 weeks after surgery ACTIVITY -It is normal to feel tired for a few days after surgery. Get plenty of rest and allow your body toheal. -Walking is encouraged immediately after surgery to prevent prolonged recovery time. The longer youstay in bed the more deconditioned you will become. -Do not engage in any strenuous activities such as abdominal exercises, pushing, pulling, or heavy lifting (greater than 10 pounds or a gallon of milk) for4 weeks after surgery. -If you were able to climb stairs without any problems prior to surgery you may resume climbing stairs -You may start driving when you are no longer taking narcotic pain medication. Do not drive if yourabdominal discomfort inhibits your ability to operate a motor vehicle safely. It is a good idea to first try the pedals and hand controls in a stationary car. If this feels comfortable, then take thecar for a short ride accompanied by another person who could drive the car if you feel unable to continue driving. -You may shower after surgery but do not sit in a bath tub for the first 4 weeks after surgery. (This includes going into a swimming pool, ocean, or hot tub). Pat your incisions dry. Do not rub your incisions with a washcloth or towel. Make sure to keep your incisions clean and dry. -Recovery times vary from person to person but typically, you should be able to return to work4 weeks after your surgery. Your doctor will make recommendations based on your status after surgery and your recovery. SWELLING -Swelling of the hands and lower extremities is common due to fluids given during surgery. -Swelling of the face can occur due to positioning during surgery. -Swelling of the calves or legs that is persistent and associated with redness and pain may be signof a blood clot and should be reported to your doctor immediately. NUTRITION -You may resume the diet you had prior to surgery. -Keep yourself well hydrated by drinking 6-8 glasses of water daily. If you notice the following symptoms Please present to the ED or call the clinic if you experience any ofthe following symptoms:Fever, chills,chest pain, shortness of breath,worseningpelvic or abdominal pain,increased vaginal bleeding,purulentdrainage from the incision site. Contact the [facility] Careline at . If unable to contact your physician and you feel it is an emergency, go to the nearest Emergency Room or call 911 Diet Instructions Activity Instructions Follow-Up Appointments Scheduled Follow-Up Appointments Date/Time:Provider/Resource: Apr 09:30 JORDAN Sweet Amy Location/Instructions:This appointment will take place on [facility] or by phone as arranged by your providers office. If you have questions please contact the office at [phone] Tests Pending None Special Instructions Common Emergency Awareness Tips Call 911 immediately if: experiencing any of the warning signs and symptoms of stroke: B.E. F.A.S.T. Balance: is there trouble with walking or coordination Eyes: is there double vision or visual loss Face: Smile, do both sides of face move equally Arm: Raise arms, do both arms move equally Speech: Is speech slurred or inappropriate Time: Time is critical, call 911 immediately Heart Attack Signs Chest discomfort: Most heart attacks involve discomfort in the center of the chest and lasts more than a few minutes, or goes away and comes back. It can feel like uncomfortable pressure, squeezing, fullness or pain. Discomfort in upper body: Symptoms can include pain or discomfort in one or both arms, back, neck, jaw or stomach. Shortness of breath: With or without discomfort. Other signs: Breaking out in a cold sweat, nausea, or lightheaded. Remember, MINUTES DO MATTER. If you experience any of these heart attack warning signs, call to get immediate medical attention! Patient Care team information Care Team Personnel Name: MD Isauro, Moi Pierce Position: Referring DIRECT Member Role: Primary Care Provider Address: [address] [place] [address] [place] Name: Jack Nance Brittani Position: Pharmacist Member Role: Pharmacy - Lifetime Care Team Related Persons Name: EVANGELISTA BUSTAMANTE Name: VIGNESH BUSTAMANTE
--- OUTSIDE RECORDS SUMMARY | 2024-05-09 18:48 | External Medical Summary | Summary of Care ---
Author Name Unknown Organization [facility] Address [address] [place] [address] Phone [phone] Care Team Providers Care Litigation Counsel Name Role Phone Moi Box MD Primary Care Provider + Encounter Details Date Type Department Care Team (Late st Contact Info) Description 05/06/2024 Orders Only Hematology/Oncology, [facility] [address] [place] [address] Janeth Luis CRNP [address] [place] [address] Allergies Active Allergy Reactions Criticality Noted Date Comments Morphine Seizure High 07/18/2017 Pt reports all narcotics - extrapyramidal symptoms Fentanyl 07/18/2017 Other Allergy (See Comments) Other (Please comment) 01/04/2021 Sneezing, itchy watery eyes, sore throat, fatigue Peanut-Containing Drug Products Anaphylaxis High 08/26/2019 Patient denies reaction Pollen Other (Please comment) 12/20/2018 Sneezing, watery itchy red eyes Propofol Seizure High 11/09/2017 Pt reports all anesthesia medications - extrapyramidal symptoms Ragweed Other (Please comment) 12/20/2018 Sneezing, watery itchy red eyes Midazolam 07/18/2017 documented as of this encounter (statuses as of 05/06/2024) Medications Medication Sig Dispensed Refills Start Date End Date Status Acetaminophen 500 MG Oral Tablet (Tylenol) Take 2 Tablets by mouth every 6 hours as needed. 10/17/2019 Active Fluticasone Propionate 50 MCG/ACT Nasal Suspension Administer 2 Sprays into each nostril as needed. 02/01/2021 Active Vitron-C 65-125 MG Oral Tablet (Iron-Vitamin C) Take 1 Tablet by mouth in the morning. Active Ibuprofen 600 MG Oral Tablet (Motrin) Take 1 Tablet by mouth every 6 hours as needed. Active Albuterol Sulfate HFA 108 (90 Base) MCG/ACT Inhalation Aerosol Solution Inhale 2 Puffs by mouth every 6 hours as needed for Wheezing. 18 g 09/13/2023 Active Additional Information Patient not taking.Reported on 03/21/2024 predniSONE 20 MG Oral Tablet (Deltasone)Indicat ions:Lumbar radicular pain,Muscle spasm of back Take 3 tabs for 3 days, 2 tabs for 3 days, 1 tab for 3 days, 1/2 tab for 3 days 20 Tablet 11/21/2023 Active Additional Information Patient not taking.Reported on 12/05/2023 Omeprazole 20 MG Oral Capsule Delayed Release (PriLOSEC)Indicati ons:Gastroesophage al reflux disease without esophagitis TAKE 1 CAPSULE BY MOUTH IN THE MORNING. 1 HOUR BEFORE THE FIRST MEAL OF THE DAY. 90 Capsule 1 02/04/2024 Active Additional Information Patient taking differently:20 mg OralBID (.AM/PM), (No instructions reported), Reported on 03/21/2024 Baclofen 10 MG Oral Tablet (Lioresal)Indicati ons:Muscle spasm of back Take 1 Tablet by mouth 2 times a day as needed for Muscle spasms. As needed for spasm 60 Tablet 1 03/07/2024 Active Gabapentin 300 MG Oral Capsule (Neurontin) Take 1 capsule by mouth twice daily. 60 Capsule 3 05/02/2024 Active documented as of this encounter (statuses as of 05/06/2024) Active Problems Problem Noted Date Diagnosed Date Gastroesophageal reflux disease without esophagi tis 12/21/2023 Liver cyst 12/10/2023 Wheezing 09/13/2023 Decreased iron stores 12/18/2022 Incomplete right bundle branch block 04/12/2021 H/O section 04/19/2019 Overview: Reason?? "skipped heartbeats in the womb" intolerance to labor?? Desires repeat c/s Will need to get outside records-delivered in [place] +extrapyramidal symptoms with both general and spinal anesthesia H/O myomectomy 04/19/2019 Overview: 2010 Mild mitral regurgitation 12/20/2018 Mild tricuspid regurgitation 12/20/2018 Irritable bowel syndrome 11/09/2017 History of gestational diabetes mellitus (GDM) 1 09/17/2016 documented as of this encounter (statuses as of 05/06/2024) Resolved Problems Problem Noted Date Diagnosed Date Resolved Date Upper respiratory tract infection 09/13/2023 12/21/2023 Acute non-recurrent maxillary sinusitis 09/13/2023 12/21/2023 Diet controlled gestational diabetes mellitus (GDM) in third trimester 09/01/2019 11/19/2019 Overview: Reporting blood sugars to [facility]; last reported on 09/08/19 Diet controlled Hyperemesis gravidarum 04/19/201901/23 Overview: Single IUP noted No response to diclegis, reglan, compazine and phenergan, zofran, zofran ODT ER for fluids 04/02- also given zofran ER for fluids 04/17- also given solumedrol and discharged on prednisone taper starting at 40mg daily this has been only relief so far. @NOB 04/18/19- reviewed with [facility] recommending ACOG guidelines from 09/06- May use "methylprednisolone 48mg daily for 3 days, given orally or IV. Pt's who do not respond within 3 days are not likely to respond, and tx should be stopped. For those who do respond, the dose may be tapered over a period of 2 weeks. For recurrent vomiting, the tapered dose may be stopped and the patient continued on the effective dose for up to 6 weeks" 04/18/19 at 11wks using starting weight of 144lbs, pt has lost 4.86% of body weight. 04/18-Rx given for methylprednisolone 40mg QD x 3 days, 36mg QD x 3 days, 32mg QD x 3 days, 28mg QD x 3 days; will be seen back in 1 week for weight check. 05/02/19- taking 36mg QD, weight increasing, will continue to decrease by 2mg q 3 days 05/09/19- taking 32mg QD, weight stable, will continue to decrease by 2mg q 3 days. Had HG with first as well, only responded to methylpredisolone, started to be able to taper around 25 weeks and symptoms improved greatly at 30wks AMA (advanced maternal age) multigravida 35+ 9 11/19/2019 Overview: IVF Considering Bert Last Assessment & Plan: 09/05/2019 Tdap Vaccine administered per clinic protocol. Pt given VIS(vaccine information sheet) Jolly Martin LPN H/O gestational diabetes in prior , currently 04/19/2019 01/23/2022 Overview: Diet and exercise controlled Early 1hr gtt----> given chronic prednisone use, early glucola would likely be invalid. Will await [facility] recommendations regarding screening H/O hyperemesis gravidarum 11/09/2017 1 08/30/2018 (infant) 11/09/201712/20 documented as of this encounter (statuses as of 05/06/2024) Immunizations Name Administration Dates Next Due COVID-19 mRNA, LNP-s, No Pre serve, 2-Dose Series (Moderna) 12/22/2020,11/24/2020 COVID-19 mRNA, LNP-s, No Pre serve, 2-Dose Series (Pfizer) 06/16/2021 COVID-19, SUBUNIT, rS-NANOPARTICLE+m1 ADJUVANT, 23-24, PF, 0.5 mL, IM (NOVAVAX) 06/07/2023 Covid-19, Mrna, Lnp-s, Pf, Bivalent, 30 Mcg, IM, 12 yrs and above (Pfizer) 05/31/2022 Seasonal Influenza, PF, 6 M & above, IM , (FluLaval or Fluzone) 06/08/2023,04/28/2020,05/21/2019, 0 18,06/01/2017 TDAP (age 10 and older)(Boostrix) 09/05/2019 TDAP, Age 7 and older, IM (Adacel) 03/20/2015 documented as of this encounter Social History Tobacco Use Types Packs/Day Years Used Date Smoking Tobacco: Never Smokeless Tobacco: Never Alcohol Use Standard Drinks/Week Comments No 0 (1 standard drink = 0.6 oz pur e alcohol) PHQ-2 Answer Date Recorded PHQ Adult Total Score 1 12/21/2023 Hunger Vital Sign Answer Date Recorded Within the past 12 months, y ou worried that your food would run out before you got the money to buy more. Never true 09/13/19 24 Within the past 12 months, t he food you bought just didn't last and you didn't have money to get more. Never true 09/13/2023 [place] Depression Scale Answer Date Recorded [place] Depression Scale Score 3 04/28/2020 The thought of harming myself has occurred to me . (Pt Reported) 04/28/2020 Childcare Answer Date Recorded Do you feel overwhelmed with taking care of a child, family member or friend? No 09/13/2023 Does your family need help f inding childcare? (Household - for ages 0-17 years) Not on file 09/13/2023 Clothing Answer Date Recorded Have you been unable to get clothing when it was really needed? No 09/13/2023 Is your family able to get c lothes or diapers when needed? (Household - for ages 0-17 years) Not on file 09/13/2023 Personal Safety Answer Date Recorded Do you feel unsafe or have concerns for your saf ety? No 09/13/2023 Do you have concerns for you r family's safety? (Household - for ages 0-17 years) Not on file 09/13/2023 Utilities Answer Date Recorded Do you have trouble paying y our heating, water, or electric bill? No 09/13/2023 Is your family able to pay t he heat, water, or electric bill? (Household - for ages 0-17 years) Not on file 09/13/2023 Does your family have access to good internet? (Household - for ages 0-17 years) Not on file 09/13/2023 Employment Status Answer Date Recorded Are you unemployed or without regular income? No 09/13/2023 Does the household have a re gular source of income? (Household - for ages 0-17 years) Not on file 09/13/2023 Social Connections Answer Date Recorded How often do you feel lonely or isolated from th ose around you? Never 09/13/2023 Financial Resource Strain Answer Date R ecorded Do you have any trouble payi ng for your medications, or do you think you might in the future? No 09/13/2023 Does your family have troubl e paying for medicine? (Household - for ages 0-17 years) Not on file 09/13/2023 Transportation Needs Answer Date Record ed READ ONLY Do you have troubl e getting a ride to medical visits or work? Never True 09/13/2023 Does your family have a hard time getting a ride to doctors visits? (Household - for ages 0-17 years) Not on file 09/13/2023 Has lack of transportation k ept you from medical appointments, meetings, work, or from getting things needed for daily living? Check all that apply. (Adult - for ages 18 years and over) Not on file 09/13/2023 Do you (or your family) have trouble finding or paying for a ride (transportation)? (Household - for ages 0-17 years) Not on file 09/13/2023 Housing Stability Answer Date Recorded Do you currently live in a s helter or have no steady place to sleep at night? No 09/13/2023 READ ONLY Do you think you a re at risk of becoming homeless? No 09/13/2023 Does your family worry about paying for your home or becoming homeless? (Household - for ages 0-17 years) Not on file 0 09/13/2023 Are you homeless or worried that you might be in the future? (Adult - for ages 18 years and over) Not on file Are you (or your family) tre eless or worried that you might be in the future? (Household - for ages 0-17 years) Not on file Food Insecurity Answer Date Recorded Do you need food for this week? No 09/13/2023 Are you able to get enough f ood for your family? (Household - for ages 0-17 years) Not on file 09/13/2023 Does your family need food t his week? (Household - for ages 0-17 years) Not on file 09/13/2023 Do you always have enough fo od for your family? (Household - for ages 0-17 years) Not on file 09/13/2023 Sex and Gender Information Value Date Recorded Sex Assigned at Female 12/20/2018 12:39 PM EDT Gender Identity Female 12/20/2018 12:39 PM EDT Sexual Orientation Straight 12/20/2018 12 :39 PM EDT Job Start Date Occupation Industry Not on file Not on file Not on file documented as of this encounter Plan of Treatment Upcoming Encounters Date Type Department Care Team (Late st Contact Info) Description 06/03/2024 11:00 AM EDT Laboratory Laboratory [facility] [address] [place] [place] [id number] [place] [facility] [address] [place] [address] 06/09/2024 3:30 PM EDT Office Visit Hematology/Oncolog y [facility] [address] [place] [phone] Janeth Luis CRNP [address] [facility] [place] [address] 07/07/2024 9:43 AM EST Hospital Encounter OR [facility], Operating Room, [facility] - 4th Floor [address] [place] [phone] Judson Navarro, DO [address] [place] [address] 07/07/2024 9:43 AM EST - 07/07/2024 10:29 AM EST Surgery OR [facility], Operating Room, [facility] - 4th Floor [address] [place] [phone] Judson Navarro, DO [address] [place] [address] COLONOSCOPY FLEXIBLE PROXIMAL DIAGNOSTIC 07/14/2024 12:40 PM EST Office Visit General Internal Medicine [facility] [address] [place] [address] Moi Box MD [address] [place] [address] 10/09/2024 8:00 AM EST Office Visit Ophthalmology, [facility] [address] Trent Encarnacion DO [address] [place] [address] 12/11/2024 9:45 AM EDT Imaging Rad[facility] [address] Pending Results Name Type Priority Associated Diagnoses Date /Time CHEMISTRY-OUTSIDE Lab Routine 024 Scheduled Procedures Name Priority Associated Diagnoses Date/Ti me COLONOSCOPY FLEXIBLE PROXIMA L DIAGNOSTIC GERD (gastroesophageal reflux disease) Family history of colon cancer 07/07/2024 9:43 AM EST ESOPHAGOGASTRODUODENOSCOPY ( EGD), FLEXIBLE, TRANSORAL, DIAGNOSTIC GERD (gastroesophageal reflux disease) Family history of colon cancer 07/07/2024 9:43 AM EST Health Maintenance Due Date Last Done Comments COVID-19 Vaccine ( season) 2024 06/07/2023, 05/31/2022, 06/16/2021, Additional history exists Influenza Vaccine (FLU shot) (#1) 2024 06/08/2023, 04/28/2020, 05/21/2019, Additional history exists Mammogram 12/12/2024 12/13/2023, 01/18, 01/12/2023, Additional history exists Depression Screening 12/20/2024 12/21/2023 Pap Smear 07/04/2026 07/04/2023, 06/20, 12/16/2018, Additional history exists Cervical Cancer Screening 07/04/2028 HPV/Co-Test 07/04/2028 07/04/2023 Lipid Panel 12/25/2028 12/26/2023, 01/10/2023 DTap/Tdap Vaccines (4 - Td or Tdap) 09/05/2029 09/05/2019, 05/30/2015 (Done elsewhere), 03/20/2015 HPV (Gardasil) Vaccine Aged Out No lo nger eligible based on patient's age to complete this topic MENINGOCOCCAL (MENACTRA/MENVEO) Aged Out No longer eligible based on patient's age to complete this topic Pneumococcal Vaccine: Pediatrics (0 to 5 Years) and At-Risk Patients (6 to 64 Years) Aged Out No longer eligible based on patient's age to complete this topic documented as of this encounter Medical Devices Not on filedocumented as of this encounter Care Teams Litigation Counsel Relationship Specialty Start Date End Date Moi Box MD [address] [facility], [place] [id number] PCP - General Internal Medicine 11/09/17 documented as of this encounter
--- OUTSIDE RECORDS SUMMARY | 2024-05-09 18:48 | External Medical Summary | Summary of Care ---
Author Name Unknown Organization [facility] Address [address] [place] [address] Phone [phone] Care Team Providers Care Coater Hand Name Role Phone Moi Box MD Primary Care Provider + Reason for Visit * Reason Comments Follow Up Encounter Details Date Type Department Care Team (Late st Contact Info) Description 03/26/2024 9:00 AM EDT Telemedicine Interventional Pain Center, [facility] [address] [place] [address] Whitney Vasquez PA-C [address] [place] [address] Lumbar radicular pain*; Chronic low back pain with sciatica, sciatica laterality unspecified, unspecified back pain laterality Allergies Active Allergy Reactions Criticality Noted Date [...] as of this encounter (statuses as of 03/26/2024) Medications Medication Sig Dispensed Refills Start Date [...] Additional Information Patient not taking.Reported on 12/05/2023 Gabapentin 300 MG Oral Capsule (Neurontin) Take 1 Capsule by mouth in the morning and 1 Capsule before bedtime. 180 Capsule 12/24/2023 Active Additional Information Patient taking differently:300 mg OralHS, Reported on 03/21/2024 Omeprazole 20 MG Oral Capsule Delayed Release [...] for spasm 60 Tablet 1 03/07/2024 Active documented as of this encounter (statuses as of 03/26/2024) Active Problems Problem Noted Date Diagnosed Date [...] as of this encounter (statuses as of 03/26/2024) Resolved Problems Problem Noted Date Diagnosed Date Resolved Date Upper respiratory tract infection 09/13/2023 12/21/2023 Acute non-recurrent maxillary sinusitis 09/13/2023 12/21/2023 Diet controlled gestational diabetes mellitus (GDM) in third trimester 09/01/2019 11/19/2019 Overview: Reporting blood sugars to [facility]; last reported on 09/08/19 Diet controlled Hyperemesis gravidarum 04/19/201901/23 Overview: Single IUP noted No response to diclegis, reglan, compazine and phenergan, zofran, zofran ODT ER for fluids 04/02- also given zofran ER for fluids 04/17- also given solumedrol and discharged on prednisone taper starting at 40mg daily this has been only relief so far. @NOB 04/18/19- reviewed with [facility] recommending ACOG guidelines from 09/06- May use [...] glucola would likely be invalid. Will await [facility] recommendations regarding screening H/O hyperemesis gravidarum 11/09/2017 1 08/30/2018 () 11/09/201712/20 documented as of this encounter (statuses as of 03/26/2024) Immunizations Name Administration Dates Next Due COVID-19 [...] money to get more. Never true 09/13/2023 [place] Depression Scale Answer Date Recorded [place] Depression Scale Score 3 04/28/2020 The thought [...] on file documented as of this encounter Progress Notes * Whitney Vasquez PA-C - 03/26/2024 9:18 AM EDT Name: Afsaneh Woody Date: 03/26/2024 Patient location: HOME. I was in a hospital or clinic location. After connecting through televideo,patient was verified with two unique identifiers. Patient (or authorized legal customer field representative) was then informed that this was a Telemedicine visit and being conducted confidentially over secure lines. Methods to assure confidentiality were taken. Patient acknowledged consent and understanding of pr ivacy and security of the Telemedicine visit. The patient agreed to participate. Video start 901 Video end 916 HPI: Afsaneh Woody is a 44 year old female known to the Pain Management clinic presents for medication follow up. Using gabapentin 300 mg QHS with some benefit. Denies unwanted side effects. Notes occasional flare ups of LE radicular pain and rather persistent lumbar spasms. Using baclofen BID, provided by PCP with some benefit. 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 She did have follow up with [facility] [facility], note 03/04 reviewed - planning hysteroscopy with polypectomy later this month. Denies LE paresthesia or weakness. Denies bowel/bladder dysfunction. Pain can affecting sleep, typically aggravated by prolonged sitting. Using baclofen, gabapentin for pain relief. Avoiding NSAIDs at this time due to increased GERD. Continues home stretching and exercise program based on previous physical therapy. History: Past Medical History: Diagnosis Date Endometriosis Fibroid Gestational diabetes H/O hyperemesis gravidarum 11/09/2017 Hyperemesis gravidarum 04/19/2019 Single IUP noted No response to diclegis, reglan, compazine and phenergan, zofran, zofran ODT ER for fluids 04/02- also given zofran ER for fluids 04/17- also given solumedrol and discharged on prednisone taper starting at 40mg daily this has been only relief so far. @NOB 04/18/19- reviewed with [facility] recommending ACOG guidelines from 09/06- May use "methylprednisolone 48mg daily for 3 days, given or Incomplete right bundle branch block 04/12/2021 Mild mitral regurgitation 12/20/2018 Mild tricuspid regurgitation 12/20/2018 Salivary gland infection Uterine polyp Past Surgical History: Procedure Laterality Date DELIVERY 05/30/2015 Breech presentation DENTAL SURGERY PROCEDURE NEC 05/2020 dental implant HYSTEROSCOPY W/BIOPSY AND/OR POLYPECTOMY W/WO D&C , 07/2014 x2 LIGATE/CUT OVIDUCT(S) 10/13/2019 LUMBAR / SACRAL EPIDURAL, SINGLE LEVEL 08/22/2023 INJECTION TRANSFORAMINAL EPIDURAL LUMBAR OR SACRAL performed by Domenico Blunt DO at OR [facility] PUNCTURE RETRIEVAL OF OOCYTE REMOVAL OF FIBROID UTERUS TUMOR 2010 Open myomectomy Current Outpatient Medications Medication Sig Dispense Refill Acetaminophen 500 MG Oral Tablet (Tylenol) Take 2 Tablets by mouth every 6 hours as needed. (Patient not taking: Reported on 03/21/2024) Fluticasone Propionate 50 MCG/ACT Nasal Suspension Administer 2 Sprays into each nostril as needed. Vitron-C 65-125 MG Oral Tablet (Iron-Vitamin C) Take 1 Tablet by mouth in the morning. Ibuprofen 600 MG Oral Tablet (Motrin) Take 1 Tablet by mouth every 6 hours as needed. Albuterol Sulfate HFA 108 (90 Base) MCG/ACT Inhalation Aerosol Solution Inhale 2 Puffs by mouth every 6 hours as needed for Wheezing. (Patient not taking: Reported on 03/21/2024) 18 g 0 predniSONE 20 MG Oral Tablet (Deltasone) Take 3 tabs for 3 days, 2 tabs for 3 days, 1 tab for 3 days, 1/2 tab for 3 days (Patient not taking: Reported on 12/05/2023) 20 Tablet 0 Gabapentin 300 MG Oral Capsule (Neurontin) Take 1 Capsule by mouth in the morning and 1 Capsule before bedtime. (Patient taking differently: Take 1 Capsule by mouth at bedtime.) 180 Capsule 0 Omeprazole 20 MG Oral Capsule Delayed Release (PriLOSEC) TAKE 1 CAPSULE BY MOUTH IN THE MORNING. 1 HOUR BEFORE THE FIRST MEAL OF THE DAY. (Patient taking differently: Take 1 Capsule by mouth in the morning and 1 Capsule before bedtime.) 90 Capsule 1 Baclofen 10 MG Oral Tablet (Lioresal) Take 1 Tablet by mouth 2 times a day as needed for Muscle spasms. As needed for spasm 60 Tablet 1 Vitamin B-12 500 MCG Sublingual Tablet Sublingual (Vitamin B-12) Place 1 Tablet under the tongue daily as needed. Takes a spray Norethindrone 0.35 MG Oral Tablet Take 1 Tablet by mouth in the morning. 03/21/2024 Will start prior to upcoming procedure. Tums Ultra 1000 1000 MG Oral Tablet Chewable (Calcium Carbonate Antacid) Take 2 Tablets by mouth inthe morning and 2 Tablets at noon and 2 Tablets before bedtime. No current facility-administered medications for this visit. Review of patient's allergies indicates: Allergen Reactions Duramorph [Morphine] Seizure Pt reports all narcotics - extrapyramidal symptoms Peanut-Containing Drug Products Anaphylaxis Patient denies reaction Propofol Seizure Pt reports all anesthesia medications - extrapyramidal symptoms Fentanyl Other Allergy (See Comments) Other (Please comment) Sneezing, itchy watery eyes, sore throat, fatigue Pollen Other (Please comment) Sneezing, watery itchy red eyes Ragweed Other (Please comment) Sneezing, watery itchy red eyes Versed [Midazolam] ROS: CONSTITUTIONAL: Denies anorexia, weight loss, fever, night sweats. RESPIRATORY: Denies shortness of breath, wheezing, productive cough. CARDIOVASCULAR: Denies chest pains, irregular heartbeat. HEME: Denies easy bruising and anticoagulation use. ROS EXAM: Remainder of ROS negative as discussed above in the HPI. PHYSICAL EXAM: There were no vitals taken for this visit. GENERAL: WD/WN female who is awake and alert. Does not appear to be in acute distress. MENTAL STATUS: Oriented x 3. Pleasant and cooperative with normal affect. ASSESSMENT: Chronic low back pain Lumbar radicular pain RECOMMENDATION: Increase gabapentin to 300 mg BID. Will monitor for daytime drowsiness/dizziness.Does not need refill at this time. Patient will update clinic after [facility] procedure later this month. Consider repeat SONU, if needed. Will avoid NSAID and oral steroid at this time, increased GERD. Total video duration 15 minutes. I spent a total of 20-29 minutes (exact time 25 mins) on the date of service in preparation, delivery, reviewing neurosurgery and [employer] notes, and documentation of the care provided to Afsaneh Woody excluding any time spent in the performance of separately billed services or time spent by another provider/QHP. Whitney Vasquez PA-C 03/26/2024 documented in this encounter Plan of Treatment Upcoming Encounters Date Type Department Care Team (Latest Contact Info) Description 06/03/2024 11:00 AM EDT Laboratory Laboratory [facility] [place]n [place] [address] [place] [phone] [facility] Lab [facility] [address] [facility] [place] [address] 06/09/2024 3:30 PM EDT Office Visit Hematology/Oncolog y [facility] [place] [address] [place] [phone] Janeth Luis CRNP [address] [facility] [place] [address] 07/07/2024 9:44 AM EST Hospital Encounter OR [facility], Operating Room, [facility] - 4th Floor [address] [place] [address] Judson Navarro, DO [address] [place] [address] 07/07/2024 9:44 AM EST - 07/07/2024 10:30 AM EST Surgery OR [facility], Operating Room, [facility] - 4th Floor [address] [place] [address] Judson Navarro, DO [address] [place] [address] COLONOSCOPY FLEXIBLE PROXIMAL DIAGNOSTIC 07/14/2024 12:40 PM EST Office Visit General Internal Medicine [facility] [address] [facility] [place] [address] Moi Box MD 200 [facility] [place] [address] 12/11/2024 9:45 AM EDT Imaging Radiology [facility] [address] [place] [address] Scheduled Procedures Name Priority Associated Diagnoses Date/Ti me COLONOSCOPY FLEXIBLE PROXIMA L DIAGNOSTIC GERD (gastroesophageal reflux disease) Family history of colon cancer 07/07/2024 9:44 AM EST ESOPHAGOGASTRODUODENOSCOPY ( EGD), FLEXIBLE, TRANSORAL, DIAGNOSTIC GERD (gastroesophageal reflux disease) Family history of colon cancer 07/07/2024 9:44 AM EST Health Maintenance Due Date Last Done Comments COVID-19 Vaccine ( season) 2023 06/07/2023, 05/31/2022, 06/16/2021, Additional history exists Influenza Vaccine (FLU shot) (#1) 2024 06/08/2023, 04/28/2020, 05/21/2019, Additional history exists Mammogram 12/12/2024 12/13/2023, 01/18, 01/12/2023, Additional history exists Depression Screening 12/20/2024 12/21/2023 Pap Smear 07/04/2026 07/04/2023, 06/20, 12/16/2018, Additional history exists Cervical Cancer Screening 07/04/2028 HPV/Co-Test 07/04/2028 07/04/2023 Lipid Panel 12/25/2028 12/26/2023, 01/10/2023 DTaP,Tdap,and Td Vaccines (4 - Td or Tdap) 09/05/2029 [...] Not on filedocumented as of this encounter Visit Diagnoses Diagnosis Lumbar radicular pain- Primary Thoracic or lumbosacral neuritis or radiculitis, unspecified Chronic low back pain with sciatica, sciatica laterality unspecified, unspecified back pain laterality GERD (gastroesophageal reflux disease) Esophageal reflux Family history of colon cancer Family history of malignant neoplasm of gastrointestinal tract documented in this encounter Care Teams Coater Hand Relationship Specialty Start Date End Date Moi Box MD [address] [place] [address] PCP - General Internal Medicine 11/09/17 documented as of this encounter
--- OUTSIDE RECORDS SUMMARY | 2024-05-09 18:48 | External Medical Summary | Summary of Care ---
Author Name Unknown Organization [facility] Address [address] [place] [address] Phone [phone] Care Team Providers Care Electric Motor Analyst Name Role Phone Moi Box MD Primary Care Provider + Reason for Visit * Reason Onset Date Comments Medication Refill 05/02/2024 Encounter Details Date Type Department Care Team (Late st Contact Info) Description 05/02/2024 Telephone Interventional Pain Center, [facility] [address] [place] [address] Domenico Blunt, [address] [place] [address] Medication Refill Allergies Active Allergy Reactions Criticality Noted Date [...] as of this encounter (statuses as of 05/02/2024) Medications Medication Sig Dispensed Refills Start Date [...] on 03/21/2024 predniSONE 20 MG Oral Tablet (Deltasone)Indic ations:Lumbar radicular pain,Muscle spasm of back Take 3 tabs for 3 days, 2 tabs for 3 days, 1 tab for 3 days, 1/2 tab for 3 days 20 Tablet 11/21/2023 Active Additional Information Patient not taking.Reported on 12/05/2023 Omeprazole 20 MG Oral Capsule Delayed Release (PriLOSEC)Indica tions:Gastroesop hageal reflux disease without esophagitis TAKE 1 CAPSULE BY MOUTH IN THE MORNING. 1 HOUR BEFORE THE FIRST MEAL OF THE DAY. 90 Capsule 1 02/04/2024 Active Additional Information Patient taking differently:20 mg OralBID (.AM/PM), (No instructions reported), Reported on 03/21/2024 Baclofen 10 MG Oral Tablet (Lioresal)Indica tions:Muscle spasm of back Take 1 Tablet by mouth 2 times a day as needed for Muscle spasms. As needed for spasm 60 Tablet 1 03/07/2024 Active Gabapentin 300 MG Oral Capsule (Neurontin) Take 1 capsule by mouth twice daily. 60 Capsule 3 05/02/2024 Active Gabapentin 300 MG Oral Capsule (Neurontin) Take 1 Capsule by mouth at bedtime. 30 Capsule 3 04/16/2024 05/02/20 24 Discontinued documented as of this encounter (statuses as of 05/02/2024) Active Problems Problem Noted Date Diagnosed Date [...] as of this encounter (statuses as of 05/02/2024) Resolved Problems Problem Noted Date Diagnosed Date Resolved Date Upper respiratory tract infection 09/13/2023 12/21/2023 Acute non-recurrent maxillary sinusitis 09/13/2023 12/21/2023 Diet controlled gestational diabetes mellitus (GDM) in third trimester 09/01/2019 11/19/2019 Overview: Reporting blood sugars to [facility]; last reported on 09/08/19 Diet controlled Hyperemesis gravidarum 04/19/201901/23 Overview: Single IUP noted No response to diclegis, reglan, compazine and phenergan, zofran, zofran ODT ER for fluids 04/02- also given zofran ER for fluids 04/17- also given solumedrol and discharged on prednisone taper starting at 40mg daily this has been only relief so far. @NOB 04/18/19- reviewed with [facility] recommending ACOG guidelines from 09/06- May use [...] glucola would likely be invalid. Will await [facility] recommendations regarding screening H/O hyperemesis gravidarum 11/09/2017 1 08/30/2018 (infant) 11/09/201712/20 documented as of this encounter (statuses as of 05/02/2024) Immunizations Name Administration Dates Next Due COVID-19 [...] money to get more. Never true 09/13/2023 [place] Depression Scale Answer Date Recorded [place] Depression Scale Score 3 04/28/2020 The thought [...] on file Are you (or your family) rte eless or worried that you might be [...] on file documented as of this encounter Miscellaneous Notes * Telephone Encounter - Joana Mandujano PHARM Tech - 05/02/2024 2:52 PM EDT Pt calling in to request a dose change on their Gabapentin. Current dose: 300 mg at bedtime. Requested dose: 300 Mg BID Reason for request: Per telemed visit on 03-26-24 Preferred pharmacy: [id number] [address] [facility] Thank you, Joana Mandujano Pharmacy Tech [facility] 05/02/2024,2:52 PM documented in this encounter Plan of Treatment Upcoming Encounters Date Type Department Care Team (Late st Contact Info) Description 06/03/2024 11:00 AM EDT Laboratory Laboratory [facility] [place] [address] [place] [phone] Lyric Sanders [address] [place] [address] 06/09/2024 3:30 PM EDT Office Visit Hematology/Oncolog y [facility] [place] [address] [place] [phone] Janeth Luis CRNP [address] [place] [address] 07/07/2024 9:43 AM EST Hospital Encounter OR [facility], Operating Room, [facility] - 4th Floor [address] [place] [phone] Judson Navarro, DO 132 [facility] [place] [address] 07/07/2024 9:43 AM EST - 07/07/2024 10:29 AM EST Surgery OR [facility], Operating Room, [facility] - 4th Floor [address] [place] [phone] Judson Navarro, DO 132 [facility] [place] [address] COLONOSCOPY FLEXIBLE PROXIMAL DIAGNOSTIC 07/14/2024 12:40 PM EST Office Visit General Internal Medicine [facility] [address] [facility] [place] [address] Moi Box MD [address] [facility] [place] [address] 10/09/2024 8:00 AM EST Office Visit Ophthalmology, [facility] 132 [facility] [place] [address] Trent Encarnacion, DO [address] [facility] [place] [address] 12/11/2024 9:45 AM EDT Imaging Radiology [facility] [address] [facility] [place] [address] Scheduled Procedures Name Priority Associated Diagnoses Date/Ti [...] filedocumented as of this encounter Care Teams Electric Motor Analyst Relationship Specialty Start Date End Date Moi Box MD [address] [facility] [place] [address] PCP - General Internal Medicine 11/09/17 documented as of this encounter
--- OUTSIDE RECORDS SUMMARY | 2024-05-09 18:48 | External Medical Summary | Summary of Care ---
Author Name Unknown Organization [facility] Address [address] [place] [address] Phone [phone] Care Team Providers Care Home Therapy Clinician Name Role Phone Moi Box MD Primary Care Provider + Reason for Visit * Reason Onset Date Comments Medication Refill 04/16/2024 Encounter Details Date Type Department Care Team (Late st Contact Info) Description 04/16/2024 Refill Interventional Pain Center, [facility] [address] [place] [address] Whitney Vasquez PA-C [address] [place] [address] Allergies Active Allergy Reactions Criticality Noted Date [...] as of this encounter (statuses as of 04/16/2024) Medications Medication Sig Dispensed Refills Start Date [...] mouth at bedtime. 30 Capsule 3 04/16/2024 Active Gabapentin 300 MG Oral Capsule (Neurontin) Take 1 Capsule by mouth in the morning and 1 Capsule before bedtime. 180 Capsule 12/24/2023 Discontinue d(Refill) documented as of this encounter (statuses as of 04/16/2024) Active Problems Problem Noted Date Diagnosed Date [...] as of this encounter (statuses as of 04/16/2024) Resolved Problems Problem Noted Date Diagnosed Date Resolved Date Upper respiratory tract infection 09/13/2023 12/21/2023 Acute non-recurrent maxillary sinusitis 09/13/2023 12/21/2023 Diet controlled gestational diabetes mellitus (GDM) in third trimester 09/01/2019 11/19/2019 Overview: Reporting blood sugars to [facility]; last reported on 09/08/19 Diet controlled Hyperemesis gravidarum 04/19/201901/23 Overview: Single IUP noted No response to diclegis, reglan, compazine and phenergan, zofran, zofran ODT ER for fluids 04/02- also given zofran ER for fluids 04/17- also given solumedrol and discharged on prednisone taper starting at 40mg daily this has been only relief so far. @NOB 04/18/19- reviewed with [facility] recommending ACOG guidelines from 09/06- May [...] glucola would likely be invalid. Will await [facility] recommendations regarding screening H/O hyperemesis gravidarum 11/09/2017 1 08/30/2018 (infant) 11/09/201712/20 documented as of this encounter (statuses as of 04/16/2024) Immunizations Name Administration Dates Next Due COVID-19 [...] money to get more. Never true 09/13/2023 [place] Depression Scale Answer Date Recorded [place] Depression Scale Score 3 04/28/2020 The thought [...] encounter Miscellaneous Notes * Telephone Encounter - Domenico Mccarty DO - 04/16/2024 4:18 PM EDTSigned Prescriptions: Disp Refills Gabapentin 300 MG Oral Capsule (Neurontin) 30 Cap*3 Sig: Take 1 Capsule by mouth at bedtime. Authorizing Provider: DOMENICO MCCARTY * Telephone Encounter - Vikki Santana LPN - 04/16/2024 9:51 AM EDTPending Prescriptions: Disp Refills Gabapentin 300 MG Oral Capsule (Neurontin) 180 Ca*0 Sig: Take 1Capsule by mouth in the morning and 1 Capsule before bedtime. documented in this encounter Plan of Treatment Upcoming Encounters Date Type Department Care Team (Late st Contact Info) Description 06/03/2024 11:00 AM EDT Laboratory Laboratory [facility] [place] [address] [place] [phone] [facility] [address] [place] [address] [address] 06/09/2024 3:30 PM EDT Office Visit [facility] [place] [address] [place] [phone] Janeth Luis CRNP [address] [facility] [place] [address] 07/07/2024 9:33 AM EST Hospital Encounter OR [facility], Operating Room, [facility] - 4th Floor [address] [place] [phone] Judson Navarro, DO [address] [facility] [place] [address] 07/07/2024 9:33 AM EST - 07/07/2024 10:19 AM EST Surgery OR [facility], Operating Room, [facility] - 4th Floor [address] [place] [phone] Judson Navarro, DO [address] [facility] [place] [address] COLONOSCOPY FLEXIBLE PROXIMAL DIAGNOSTIC 07/14/2024 12:40 PM EST Office Visit General Internal Medicine [facility] [place] [address] [place] [address] Moi Box MD [address] [facility] [place], [place] [address] 10/09/2024 8:00 AM EST Office Visit Ophthalmology, [facility] [address] [facility] [place] [address] Trent Encarnacion, DO [address] [facility] [place] [address] 12/11/2024 9:45 AM EDT Imaging Radiology [address] [place] [address] Scheduled Procedures Name Priority Associated Diagnoses Date/Ti me COLONOSCOPY FLEXIBLE PROXIMA L DIAGNOSTIC GERD (gastroesophageal reflux disease) Family history of colon cancer 07/07/2024 9:33 AM EST ESOPHAGOGASTRODUODENOSCOPY ( EGD), FLEXIBLE, TRANSORAL, DIAGNOSTIC GERD (gastroesophageal reflux disease) Family history of colon cancer 07/07/2024 9:33 AM EST Health Maintenance Due Date Last [...] filedocumented as of this encounter Care Teams Home Therapy Clinician Relationship Specialty Start Date End Date Moi Box MD [address] [place] [address] PCP - General Internal Medicine 11/09/17 documented as of this encounter
--- OUTSIDE RECORDS SUMMARY | 2024-05-09 18:48 | External Medical Summary | Summary of Care ---
Author Name Unknown Organization [facility] Address [address] [place] [address] Phone [phone] Care Team Providers Care Pneumatic Tool Operator Name Role Phone Moi Box MD Primary Care Provider + Reason for Visit * Reason Onset Date Comments Outpatient Testing 05/02/2024 [facility] Encounter Details Date Type Department Care Team (Late st Contact Info) Description 05/02/2024 Telephone Hematology/Oncology [facility] [address] [place] [address] Janeth Luis CRNP [address] [place] [address] Outpatient Testing ([facility]) Allergies Active Allergy Reactions Criticality Noted Date [...] at bedtime. 30 Capsule 3 04/16/2024 Active documented as of this encounter (statuses [...] 09/01/2019 11/19/2019 Overview: Reporting blood sugars to [facility]; last reported on 09/08/19 Diet controlled Hyperemesis gravidarum 04/19/201901/23 Overview: Single IUP noted No response to diclegis, reglan, compazine and phenergan, zofran, zofran ODT ER for fluids 04/02- also given zofran ER for fluids 04/17- also given solumedrol and discharged on prednisone taper starting at 40mg daily this has been only relief so far. @NOB 04/18/19- reviewed with [facility] recommending ACOG guidelines from 09/06- [...] glucola would likely be invalid. Will await [facility] recommendations regarding screening H/O hyperemesis gravidarum 11/09/2017 1 08/30/2018 (infant) 11/09/201712/20 documented as of this encounter (statuses as of 05/02/2024) Immunizations Name Administration Dates Next Due COVID-19 mRNA, LNP-s, No Pre serve, 2-Dose Series (Moderna) 12/22/2020,11/24/2020 COVID-19 mRNA, LNP-s, No Pre serve, 2-Dose Series (Kredits) 06/16/2021 COVID-19, SUBUNIT, rS-NANOPARTICLE+m1 ADJUVANT, 23-24, PF, [...] to get more. Never true 09/13/2023 [place] [facility] Depression Scale Answer Date Recorded [place] Depression Scale Score 3 04/28/2020 The thought [...] encounter Miscellaneous Notes * Telephone Encounter - Sandy Mathur LPN - 05/02/2024 10:25 AM EDT Eliane from [facility] calling in to verify patient's lab orders from 03/17/2024 are ok to be run routine. Per Eliane [facility] labs cannot process stat lab orders. Upon reviewing patient's chart informed her the labs can be run Routine. She verbalized understanding and denies needing new orders. documented in this encounter Plan of Treatment Upcoming Encounters Date Type Department Care Team (Late st Contact Info) Description 06/03/2024 11:00 AM EDT Laboratory Laboratory State Polina Diaz [address] [place] [phone] Lyric Sanders [place] [address] [place] [id number] 06/09/2024 3:30 PM EDT Office Visit Hematology/Oncolog y [facility] [place] [address] [place] [phone] Janeth Luis CRNP [address] [address] 07/07/2024 9:33 AM EST Hospital Encounter OR [facility], Operating Room, [facility] - 4th Floor [address] [id number] Judson Navarro, DO [address] [place] [address] 07/07/2024 9:33 AM EST - 07/07/2024 10:19 AM EST Surgery OR [facility], Operating Room, [facility] - 4th Floor [address] [facility] [place] [phone] Judson Navarro, DO [address] [facility] [place] [address] COLONOSCOPY FLEXIBLE PROXIMAL DIAGNOSTIC 07/14/2024 12:40 PM EST Office Visit General Internal Medicine [facility] 200 [facility] [place] [address] Moi Box MD 200 [facility] [place] [address] 10/09/2024 8:00 AM EST Office Visit Ophthalmology, [facility] [address] [facility] [place] [address] Trent Encarnacion, DO [address] [facility] [place] [address] 12/11/2024 9:45 AM EDT Imaging Radiology [facility] [address] [facility] [place] [address] Scheduled Procedures Name Priority Associated Diagnoses Date/Ti [...] filedocumented as of this encounter Care Teams Pneumatic Tool Operator Relationship Specialty Start Date End Date Moi Box MD [address] [place] [address] PCP - General Internal Medicine 11/09/17 documented as of this encounter
--- OUTSIDE RECORDS SUMMARY | 2024-05-09 18:48 | External Medical Summary | Continuity of Care Document ---
Author Name Unknown [facility] Address [address] [place] [address] [address] [id number] Care Team Providers Care Senior Managing Director Name Role Phone Moi Box Primary Care Physician [phone] [id number] Date(s): 04/08/24 - 04/08/24 [facility]etric[facility] and Gyne[facility] [address] [place] [address], [address] [place] [address] [phone] Encounter Diagnosis Pre-op exam(Discharge Diagnosis) - 04/08/24 Discharge Disposition: Home or Self Care Attending Physician: JORDAN De La Cruz Amy Referring Physician: MD Marcial Linda J Allergies, Adverse Reactions, Alerts Substance Criticality Severity Reaction Reaction Severity Status midazolam nausea, vomiting Act kaushal morphine Unable to assess criticality Severe Extrapyramidal symptom Active propofol Unable to assess criticality Severe Extrapyramidal symptom Active peanuts Unable to assess criticality Severe Anaphylaxis Active fentaNYL Unable to assess criticality Severe Extrapyramidal symptom Active Duramorph PF extrapyramidal symptoms Active Medications baclofen Start: 03/04/24 11:27:00 AM EDT, 10 mg =, PO, 2x daily Start Date: 03/04/24 Status: Ordered gabapentin Start: 03/04/24 11:27:00 AM EDT, 300 mg =, PO, Daily Start Date: 03/04/24 Status: Ordered ibuprofen 600 mg oral tablet Start: 10/17/19 11:36:00 AM EST, 1 tab, PO, qid, Disp# 30 tab, Refills: 3, PRN: as needed for pain, Pharmacy: [facility] Start Date: 10/17/19 Status: Ordered omeprazole Start: 03/04/24 11:29:00 AM EDT, 20 mg =, PO, Daily Start Date: 03/04/24 Status: Ordered simethicone Start: 04/07/24 1:17:00 PM EDT Start Date: 04/07/24 Status: Ordered Tums Start: 03/04/24 11:29:00 AM EDT Start Date: 03/04/24 Status: Ordered Tylenol 500 mg oral tablet Start: 10/17/19 11:35:00 AM EST, 2 tab, PO, q6h, PRN: Fever/Mild Pain Start Date: 10/17/19 Status: Ordered unknown medication Start: 03/04/24 11:27:00 AM EDT, OTC iron Start Date: 03/04/24 Status: Ordered Problem List Condition Confirmation Course Effective Dates Status H ealth Status Informant Back pain Confirmed Active Endometriosis Confirmed Active History of section Confirmed Active with history of uterine myomectomy Confirmed Active History of anesthesia complications Confirmed Active Hx gestational diabetes Confirmed Active Liver cyst Confirmed Active Pre-diabetes Confirmed Active Bundle branch block, right Confirmed Active Low iron Confirmed Active Back spasm Confirmed Active Diagnosis Diagnosis Type Effective Dates Health Status Clini rina Service Informant Pre-op exam Discharge Diagnosis 04/08/24 Non-Specified Procedures Procedure Date Related Diagnosis Body Site Status delivery 2019 Complet ed Tubal ligation 2019 Completed Procedure 1 2018 Completed delivery 2014 Complet ed Procedure 2013 Completed Procedure 2 Completed Procedure 3 Completed Procedure 4 Completed Procedure 5 Completed [place] tooth Completed 1IVF 2Rt breast bx 3IVF 4Dental/pulled 5Open - fibroid Social History Social History Type Response Smoking Status Never smoked cigaret nithin Sex Female Sex Representation Female (finding) History and physical note * JORDAN De La Cruz, Cindy: PERFORM Event Display: H&P Authored Date: This visit was conducted _over the phone X over the Playfire platform. This visit was initiated by me. The patient's name and date of were confirmed at the beginning of the visit. She understands that her insurance company may be billed for this visit, and she may be responsiblefor a copay. History of Present Illness Jaden is a44 year old whopresents today via telehealth for preoperative visit for anupcoming scheduledhysteroscopy dilation and curettage, polypectomy with MyoSure device, Mirena IUD insertionandrobotic assisted operative laparoscopy with possible excision of endometriosis for history of an endometrial polyp and chronic pelvic pain. She was most recently seen in clinic on 03/04/[address] Marcial with the following note was written: "Jaden is a44 year old with a hx of AUB, fibroids (s/p myomectomy 2010) polyps (s/p polypectomy 2013). possible endometriosis and known endometrial polyp who presents to the clinic for further evaluation and management of AUB-P and pelvic pain. She reports the the polyp was found incide ntally on TVUSduring workup for chronic back pain. TVUS also significant for multiple small fibroids (<1 cm). She has been experiencing heavy menstrual bleedingher entire life however it has been significantly worse in the past 2 years. Reports that she fills up a plus tampon and a heavy ana 1.5 hours for the first two days of menses. She reports large clots with menses as well as big gushes of fluid going from sitting to standing.She also has significant sharp cramping with menses that would cause her to cancel plans up to 3 days each month because she was unable to leave the house. She usually takes ibuprofen for the pain with some relief. She was previously taking a combined OCP however she began to have migraines so she was switched to the mini pill 2 months ago. Since then she reports significant improvement in both her bleeding and pain, states that she now only has a light period. During her myomectomy in 2010 she was told that there was likely endometriosis however states that they did not excise or ablate any of the possible lesions. She otherwise reports no dyschezia, dysuria or dyspareunia. Patient has been experiencing low back pain since approximately April 2023. She has been takingbaclofen and gabapentin with some improvement in the pain. She also utilizes massage, chiropractor and physical therapy. She has noted some increase in pain around menses Of note, patient has a history of EPS with anesthesia and also reports that following anesthesiafor both tooth extraction and colonoscopy she took a longer than anticipated time to wake. OBHx GynHx Menarche: 10 Menses: irregular and heavy Pap smear: 2022, no hx of abnormal paps PMH Chronic low back pain Sciatica GERD Anemia PSH Colonoscopy x2 Myomectomy 2010, Pfannenstiel incision Hysteroscopy with polypectomy 2013" [1] She denies any changes to her health history since her last office visit. She desires to proceed with surgery as scheduled. Review of Systems ROS Constitutional:Negative Eyes:Negative ENMT:Negative CV:Negative Respiratory:Negative :As noted in HPI GI:Negative Musculoskeletal:Negative Integumentary:Negative Neuro:Negative Psychiatric:Negative Endocrine:Negative Hematologic/Lymphatic:Negative Allergic/Immunologic:Negative Physical Exam Deferred due to telehealth. Diagnostic Results 06/20/2023 US pelvis transvaginal non-OB Findings: Uterus: The uterus measures 10.1 x 6 x 7.1 cm. The endometrial stripe measures 1.1 cm. Small amount of endometrial fluid is present. Posterior subserosal fibroid measuring 1.6 x 1 x 1.3 cm. Right ovary/adnexa: The right ovary measures 3.8 x 2.4 x 2.3 cm. Normal flow demonstrated. Left ovary/adnexa: The left ovary measures 2.5 x 2.1 x 1.6 cm. Normal flow demonstrated. Intraperitoneal space: No free fluid Impression: 1. Small amount of endometrial fluid is present. 2. Posterior subserosal fibroid measuring 1.6 x 1 x 1.3 cm Assessment/Plan Jaden is a44 year old whopresents today via telehealth for preoperative visit for anupcoming scheduledhysteroscopy dilation and curettage, polypectomy with MyoSure device, Mirena IUD insertionandrobotic assisted operative laparoscopy with possible excision of endometriosis for history of anendometrial polyp and chronic pelvic pain. - Informed consent was reviewed. - We discussed risks of surgery including bleeding, infection, damage to surrounding structures includingbowel and bladder. - We also discussed the risk of persistent pain after surgery. - Consent was reviewed today. She will need to sign consent on day of surgery. - Currently undergoing work-up for PUD, cannot take NSAIDs. - Has previously been told to stay away from all medications in the opioid drug class, however has taken T3 and done well with this before. - Concerned she may have significant scar tissue at umbilicus from previous surgery that will make abdominal access difficult. - She was given pre-operative and post-operative instructions. - She understands the current COVID-19 testing policy. - She is scheduled for surgery on 8/30/24. She will contact the office with any questions in the interim. Work-up: - Pap: June 2023/ Normal per patient report -CBC: 03/14/24/12.8Hb/332Plt - Imagin06/20/23/TVUS/Impression: 1. Small amount of endometrial fluid is present. 2. Posterior subserosal fibroid measuring 1.6 x 1 x 1.3 cm Pre-op Evaluation: - Pre-op testing:None - PAT:NeededHistory of EPS with anesthesia. Planning 2 hour appointment day of surgery. - Surgical consult:N/A - Medical consult:N/A - Pre-op medication mgmt: Discontinue NSAIDs 4 days prior to surgery, otherwise as instructed by anesthesia clinic Day of surgery: -Pre-oplabs:UPT - Intra-op considerations: Scar tissueat umbilicusfrom previousmyomectomy, HxofLTCS andHTCS (necessarydue toamount ofscar tissuefrom pLTCS) - Caprini score:3 - VTE PPX plan:SCDs - Admit status:OPA Problem List/Past Medical History Ongoing Back pain Back spasm Bundle branch block, right Endometriosis History of anesthesia complications History of section Hx gestational diabetes Liver cyst Low iron Pre-diabetes with history of uterine myomectomy Procedure/Surgical History delivery| Service Date: 2019Tubal ligation| Service Date: | Service Date: 2018Cesarean delivery| Service Date: 2014Proure| Service Date: 2012ProcedureProc edureProcedureProcedureWisdom tooth Medications Home acetaminophen(Tylenol 500 mg oral tablet), 1000 mg= 2 tab, PO, q6h, PRN baclofen, 10 mg, PO calcium carbonate(Tums) gabapentin, 300 mg, PO, Daily ibuprofen(ibuprofen 600 mg oral tablet), 600 mg= 1 tab, PO, qid, PRN, 3 refills omeprazole, 20 mg, PO, Daily simethicone unknown medication Allergies fentaNYL(Severe)Extrapyramidal symptom morphine(Severe)Extrapyramidal symptom peanuts(Severe)Anaphylaxis propofol(Severe)Extrapyramidal symptom Duramorph PFextrapyramidal symptoms midazolamnausea, vomiting Social History Smoking Status Never smoked cigarettes [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
--- OUTSIDE RECORDS SUMMARY | 2024-05-09 18:49 | External Medical Summary | Summary of Care ---
Author Name Unknown Organization [facility] Address [address] [place] [facility] [place] [address] Phone [phone] Care Team Providers Care Ruby Engineer Name Role Phone Moi Box MD Primary Care Provider + Reason for Visit * Reason Comments Outpatient Testing Encounter Details Date Type Department Care Team (Late st Contact Info) Description 03/14/2024 2:10 PM EDT Laboratory Laboratory [facility] [address] [place] [phone] [facility] [address] [place] [address] Encounter for long-term (current) use of medications; Iron deficiency anemia due to chronic blood loss; Vegetarian diet; Malaise and fatigue Allergies Active Allergy Reactions Criticality Noted Date Comments Morphine Seizure High 07/18/2017 Pt reports all narcotics - extrapyramidal symptoms Fentanyl 07/18/2017 Other Allergy (See Comments) Other (Please comment) 01/04/2021 Sneezing, itchy watery eyes, sore throat, fatigue Peanut-Containing Drug Products Anaphylaxis High 08/26/2019 Pollen Other (Please comment) 12/20/2018 Sneezing, watery itchy red eyes Propofol Seizure High 11/09/2017 Pt reports all anesthesia medications - extrapyramidal symptoms Ragweed Other (Please comment) 12/20/2018 Sneezing, watery itchy red eyes Midazolam 07/18/2017 documented as of this encounter (statuses as of 03/14/2024) Medications Medication Sig Dispensed Refills Start Date End Date Status Acetaminophen 500 MG Oral Tablet (Tylenol) Take 2 Tablets by mouth every 6 hours as needed. 10/17/2019 Active Fluticasone Propionate 50 MCG/ACT Nasal Suspension Administer 2 Sprays into each nostril in the morning. 02/01/2021 Active Vitron-C 65-125 MG Oral Tablet (Iron-Vitamin C) Take 1 Tablet by mouth in the morning. Active Ibuprofen 600 MG Oral Tablet (Motrin) Take 1 Tablet by mouth every 6 hours as needed. Active Albuterol Sulfate HFA 108 (90 Base) MCG/ACT Inhalation Aerosol Solution Inhale 2 Puffs by mouth every 6 hours as needed for Wheezing. 18 g 09/13/2023 Active predniSONE 20 MG Oral Tablet (Deltasone)Indicat ions:Lumbar [...] Capsule before bedtime. 180 Capsule 12/24/2023 Active Omeprazole 20 MG Oral Capsule Delayed Release (PriLOSEC)Indicati ons:Gastroesophage al reflux disease without esophagitis TAKE 1 CAPSULE BY MOUTH IN THE MORNING. 1 HOUR BEFORE THE FIRST MEAL OF THE DAY. 90 Capsule 1 02/04/2024 Active Baclofen 10 MG Oral Tablet (Lioresal)Indicati ons:Muscle spasm of back Take 1 Tablet by mouth 2 times a day as needed for Muscle spasms. As needed for spasm 60 Tablet 1 03/07/2024 Active documented as of this encounter (statuses as of 03/14/2024) Active Problems Problem Noted Date Diagnosed Date [...] as of this encounter (statuses as of 03/14/2024) Resolved Problems Problem Noted Date Diagnosed Date Resolved Date Upper respiratory tract infection 09/13/2023 12/21/2023 Acute non-recurrent maxillary sinusitis 09/13/2023 12/21/2023 Diet controlled gestational diabetes mellitus (GDM) in third trimester 09/01/2019 11/19/2019 Overview: Reporting blood sugars to [facility]; last reported on 09/08/19 Diet controlled Hyperemesis gravidarum 04/19/201901/23 Overview: Single IUP noted No response to diclegis, reglan, compazine and phenergan, zofran, zofran ODT ER for fluids 04/02- also given zofran ER for fluids 04/17- also given solumedrol and discharged on prednisone taper starting at 40mg daily this has been only relief so far. @NOB 04/18/19- reviewed with [facility] recommending ACOG guidelines from 09/06- [...] glucola would likely be invalid. Will await [facility] recommendations regarding screening H/O hyperemesis gravidarum 11/09/2017 1 08/30/2018 (infant) 11/09/201712/20 documented as of this encounter (statuses as of 03/14/2024) Immunizations Name Administration Dates Next Due COVID-19 [...] money to get more. Never true 09/13/2023 [place] Depression Scale Answer Date Recorded [place] Depression Scale Score 3 04/28/2020 The thought [...] 9:00 AM EDT Telemedicine Interventional Pain Center, [facility] [address] [place] [address] Whitney Vasquez PA-C [address] [place] [address] 04/14/2024 3:30 PM EDT Laboratory Laboratory [facility] [place] [address] [place] [phone] [facility] [address] [place] [address] [id number] 06/03/2024 11:00 AM EDT Laboratory Laboratory [facility] [place] [address] [place] [address] [phone] [facility] [address] [place] [address] [address] 06/09/2024 3:30 PM EDT Office Visit Hematology/Oncology [facility] [place] [address] [place] [phone] Janeth Luis CRNP [address] [facility] [place] [address] 07/14/2024 12:40 PM EST Office Visit General Internal Medicine [facility] [place] [address] [place] [address] [address] Moi Box MD [address] [facility] [place] [address] 12/11/2024 9:45 AM EDT Imaging Radiology [facility] [address] [place] [address] Pending Results Name Type Priority Associated Diagnoses Date /Time MAGNESIUM Lab Routine Encounter for long-term (current) use of medications 03/14/2024 2:15 PM EDT VITAMIN B12 Lab Routine Encounter for long-term (current) use of medications 03/14/2024 2:15 PM EDT IRON SCREEN, INCLUDING TIBC Lab Routine Iron deficiency anemia due to chronic blood loss Vegetarian diet Malaise and fatigue 03/14/2024 2:15 PM EDT FERRITIN Lab Routine Iron deficiency anemia due to chronic blood loss Vegetarian diet Malaise and fatigue 03/14/2024 2:15 PM EDT FOLIC ACID Lab Routine Iron deficiency anemia due to chronic blood loss Vegetarian diet Malaise and fatigue 03/14/2024 2:15 PM EDT Health Maintenance Due Date Last Done Comments [...] Not on filedocumented as of this encounter Procedures Procedure Name Priority Date/Time Associated Diagnosis Comments DIFFERENTIAL, AUTOMATED Routine 03/14/2024 2:15 PM EDT Iron deficiency anemia due to chronic blood loss Vegetarian diet Malaise and fatigue CBC Routine 03/14/2024 2:15 PM EDT Iron deficiency anemia due to chronic blood loss Vegetarian diet Malaise and fatigue CBC Routine 03/14/2024 2:15 PM EDT Iron deficiency anemia due to chronic blood loss Vegetarian diet Malaise and fatigue documented in this encounter Results * (ABNORMAL) DIFFERENTIAL, AUTOMATED (03/14/2024 2:15 PM EDT) WBC 5.21 4.00 - 10.80 K/uL 03/14/2024 2:26 PM EDT [facility] [place] 56-02 Neutrophils % 37.3(L) 40.0 - 75.0 % 03/14/2024 2:26 PM EDT [facility] [place] 56-02 Lymphocytes % 53.4(H) 18.0 - 42.0 % 03/14/2024 2:26 PM EDT [facility] [place] 56-02 Monocytes % 8.1 1.0 - 11.0 % 03/14/2024 2:26 PM EDT [facility] [place] 56-02 Eosinophils % 1.2 0.0 - 6.0 % 03/14/2024 2:26 PM EDT [facility] [place] 56-02 Basophils % 0.0 0.0 - 2.0 % 03/14/2024 2:26 PM EDT [facility] [place] 56-02 Absolute Neutrophils 1.95 1.80 - 7.70 K/uL 03/14/2024 2:26 PM EDT [facility] [place] 56-02 Absolute Lymphocytes 2.78 1.00 - 4.80 K/ul 03/14/2024 2:26 PM EDT [facility] [place] 56-02 Absolute Monocytes 0.42 0.00 - 1.10 K/uL 03/14/2024 2:26 PM EDT [facility] 56 Absolute Eosinophils 0.06 0.00 - 0.70 K/uL 03/14/2024 2:26 PM EDT [facility] 56 Absolute Basophils 0.00 0.00 - 0.20 K/uL 03/14/2024 2:26 PM EDT [facility] 56 Blood Venous blood specimen / Unknown Venipuncture / Unknown 03/14/2024 2:15 PM EDT 03/14/2024 2:15 PM EDT Janeth [facility] BLOOD ORDER [place] [id number] [address] [place] [address] * CBC (03/14/2024 2:15 PM EDT) WBC 5.21 4.00 - 10.80 K/uL 03/14/2024 2:26 [address]T [address] RBC 4.30 3.85 - 5.15 M/uL 03/14/2024 2:26 PM EDT [address] HGB 12.8 12.0 - 15.3 g/dL 03/14/2024 2:26 PM EDT [address] HCT 39.1 36.0 - 45.2 % 03/14/2024 2:26 PM EDT [facility] 56 MCV 90.9 81.5 - 97.5 fL 03/14/2024 2:26 PM EDT [address] MCH 29.8 27.0 - 34.0 pg 03/14/2024 2:26 PM EDT [facility] 56 MCHC 32.7 32.0 - 36.0 g/dL 03/14/2024 2:26 PM EDT [facility] 56 RDW 14.9 11.5 - 15.5 % 03/14/2024 2:26 PM EDT [facility] 56 PLT 332 140 - 400 K/uL 03/14/2024 2:26 PM EDT [facility] 56 MPV 9.7 6.6 - 11.1 fL 03/14/2024 2:26 PM EDT [facility] Blood Venous blood specimen / Unknown Venipuncture / Unknown 03/14/2024 2:15 PM EDT 03/14/2024 2:15 PM EDT Janeth Parikh Toby [facility] BLOOD ORDER [place] [facility] [address] [facility] [place] [address] documented in this encounter Visit Diagnoses Diagnosis Encounter for long-term (current) use of medications Encounter for long-term (current) use of other medications Iron deficiency anemia due to chronic blood loss Iron deficiency anemia secondary to blood loss (chronic) Vegetarian diet Other specified conditions influencing health status Malaise and fatigue Other malaise and fatigue documented in this encounter Care Teams Ruby Engineer Relationship Specialty Start Date End Date Moi Box MD [facility] [address] PCP - General Internal Medicine 11/09/17 documented as of this encounter
--- OUTSIDE RECORDS SUMMARY | 2024-05-09 18:49 | External Medical Summary | Summary of Care ---
Author Name Unknown Organization [facility] Address [address] [place] [address] Phone [phone] Care Team Providers Care Oil Sprayer Name Role Phone Moi Box MD Primary Care Provider + Reason for Visit * Reason Comments Outpatient Testing Encounter Details Date Type Department Care Team (Late st Contact Info) Description 03/24/2024 9:20 AM EDT Laboratory Laboratory [facility] [address] [place] [phone] Pod3, Specimen Drop Off [facility] [address] [place] [address] Abnormal iron saturation; Abnormal result of iron profile testing Allergies Active Allergy Reactions Criticality Noted Date [...] as of this encounter (statuses as of 03/24/2024) Medications Medication Sig Dispensed Refills Start Date [...] as of this encounter (statuses as of 03/24/2024) Active Problems Problem Noted Date Diagnosed Date [...] as of this encounter (statuses as of 03/24/2024) Resolved Problems Problem Noted Date Diagnosed Date Resolved Date Upper respiratory tract infection 09/13/2023 12/21/2023 Acute non-recurrent maxillary sinusitis 09/13/2023 12/21/2023 Diet controlled gestational diabetes mellitus (GDM) in third trimester 09/01/2019 11/19/2019 Overview: Reporting blood sugars to [facility]; last reported on 09/08/19 Diet controlled Hyperemesis gravidarum 04/19/201901/23 Overview: Single IUP noted No response to diclegis, reglan, compazine and phenergan, zofran, zofran ODT ER for fluids 04/02- also given zofran ER for fluids 04/17- also given solumedrol and discharged on prednisone taper starting at 40mg daily this has been only relief so far. @NOB 04/18/19- reviewed with [facility] recommending ACOG guidelines from 09/06- May [...] glucola would likely be invalid. Will await [facility] recommendations regarding screening H/O hyperemesis gravidarum 11/09/2017 1 08/30/2018 (infant) 11/09/201712/20 documented as of this encounter (statuses as of 03/24/2024) Immunizations Name Administration Dates Next Due COVID-19 mRNA, LNP-s, No Pre serve, 2-Dose Series (Moderna) 12/22/2020,11/24/2020 COVID-19 mRNA, LNP-s, No Pre serve, 2-Dose Series ([employer]) 06/16/2021 COVID-19, SUBUNIT, rS-NANOPARTICLE+m1 ADJUVANT, 23-24, PF, 0.5 mL, IM (NOVAVAX) 06/07/2023 Covid-19, Mrna, Lnp-s, Pf, Bivalent, 30 Mcg, IM, 12 yrs and above ([employer]) 05/31/2022 Seasonal Influenza, PF, 6 M & [...] money to get more. Never true 09/13/2023 [place] Depression Scale Answer Date Recorded [place] Depression Scale Score 3 04/28/2020 The thought [...] Department Care Team (Latest Contact Info) Description 4 9:00 AM EDT Telemedicine Interventional Pain Center, [facility] [address] [place] [address] Whitney Vasquez PA-C [address] [place] [address] 4 11:15 AM EDT Hospital Encounter ENDO [facility], Endoscopy Room [facility] [address] [place] [phone] Vikki Nguyen DO [address] [place] [address] 4 11:15 AM EDT - 4 11:45 AM EDT Surgery ENDO [facility], Endoscopy Room [facility] [address] [place] [phone] Vikki Nguyen DO [address] [place] [address] ESOPHAGOGASTRODUODENOSCOPY (EGD), FLEXIBLE, TRANSORAL, DIAGNOSTIC 4 11:00 AM EDT Laboratory Laboratory [place] Sanders [address] [place] [phone] [facility] [address] [place] [address] 4 3:30 PM EDT Office Visit Hematology/Onco logy [facility] [address] [facility] [place] [phone] Janeth Luis CRNP [address] [facility] [place] [address] 4 12:40 PM EST Office Visit General Internal Medicine [facility] [place] [address] Moi Box MD 200 [facility] [place] [address] 5 9:45 AM EDT Imaging Radiology [facility] [address] [facility] [place] [address] Pending Results Name Type Priority Associated Diagnoses Date /Time FECAL OCCULT BLOOD, EIA Lab Routine Abnormal iron saturation 03/24/2024 9:20 AM EDT Scheduled Procedures Name Priority Associated Diagnoses Date/Ti me ESOPHAGOGASTRODUODENOSCOPY ( EGD), FLEXIBLE, TRANSORAL, DIAGNOSTIC GERD (gastroesophageal reflux disease) 04/02/2024 11:15 AM EDT Health Maintenance Due Date Last Done [...] as of this encounter Visit Diagnoses Diagnosis Abnormal iron saturation Other abnormal blood chemistry Abnormal result of iron profile testing GERD (gastroesophageal reflux disease) Esophageal reflux documented in this encounter Care Teams Oil Sprayer Relationship Specialty Start Date End Date Moi Box MD [address] [place] [address] PCP - General Internal Medicine 11/09/17 documented as of this encounter
--- OUTSIDE RECORDS SUMMARY | 2024-05-09 18:49 | External Medical Summary | Summary of Care ---
Author Name Unknown Organization [facility] Address [address] [place] [address] Phone [phone] Care Team Providers Care Safety Belt Installer Name Role Phone Moi Amezquita MD Primary Care Provider + Reason for Visit * Reason Onset Date Comments Medication Refill 03/06/2024 Encounter Details Date Type Department Care Team (Late st Contact Info) Description 03/06/2024 Refill General Internal Medicine [facility] 200 [place] [address] Moi Amezquita MD 200 [place] [address] Muscle spasm of back Allergies Active Allergy Reactions Criticality Noted Date [...] as of this encounter (statuses as of 03/07/2024) Medications Medication Sig Dispensed Refills Start Date [...] mouth every 6 hours as needed. Active Aurovela FE 09/08 1-20 MG-MCG Oral Tablet Take 1 Tablet by mouth at bedtime. 08/28/2023 Active Albuterol Sulfate HFA 108 (90 Base) MCG/ACT Inhalation Aerosol Solution Inhale 2 Puffs by mouth every 6 hours as needed for Wheezing. 18 g 09/13/2023 Active predniSONE 20 MG Oral Tablet (Deltasone)Indica tions:Lumbar radicular pain,Muscle spasm of back Take 3 [...] Omeprazole 20 MG Oral Capsule Delayed Release (PriLOSEC)Indicat ions:Gastroesopha geal reflux disease without esophagitis TAKE 1 CAPSULE BY MOUTH IN THE MORNING. 1 HOUR BEFORE THE FIRST MEAL OF THE DAY. 90 Capsule 1 02/04/2024 Active Baclofen 10 MG Oral Tablet (Lioresal)Indicat ions:Muscle spasm of back Take 1 Tablet by mouth 2 times a day as needed for Muscle spasms. As needed for spasm 60 Tablet 1 03/07/2024 Active Baclofen 10 MG Oral Tablet (Lioresal)Indicat ions:Muscle spasm of back Take 1 Tablet by mouth 2 times a day as needed for Muscle spasms. As needed for spasm 60 Tablet 1 01/09/2024 Discontinue d(Refill) documented as of this encounter (statuses as of 03/07/2024) Active Problems Problem Noted Date Diagnosed Date [...] as of this encounter (statuses as of 03/07/2024) Resolved Problems Problem Noted Date Diagnosed Date Resolved Date Upper respiratory tract infection 09/13/2023 12/21/2023 Acute non-recurrent maxillary sinusitis 09/13/2023 12/21/2023 Diet controlled gestational diabetes mellitus (GDM) in third trimester 09/01/2019 11/19/2019 Overview: Reporting blood sugars to [facility]; last reported on 09/08/19 Diet controlled Hyperemesis gravidarum 04/19/201901/23 Overview: Single IUP noted No response to diclegis, reglan, compazine and phenergan, zofran, zofran ODT ER for fluids 04/02- also given zofran ER for fluids 04/17- also given solumedrol and discharged on prednisone taper starting at 40mg daily this has been only relief so far. @NOB 04/18/19- reviewed with [facility] recommending ACOG guidelines from 09/06- May [...] glucola would likely be invalid. Will await [facility] recommendations regarding screening H/O hyperemesis gravidarum 11/09/2017 1 08/30/2018 (infant) 11/09/201712/20 documented as of this encounter (statuses as of 03/07/2024) Immunizations Name Administration Dates Next Due COVID-19 mRNA, LNP-s, No Pre serve, 2-Dose Series (Moderna) 12/22/2020,11/24/2020 COVID-19 mRNA, LNP-s, No Pre serve, 2-Dose Series ([employer]) 06/16/2021 COVID-19, SUBUNIT, rS-NANOPARTICLE+m1 ADJUVANT, 23-24, PF, [...] money to get more. Never true 09/13/2023 [place] Depression Scale Answer Date Recorded [place] Depression Scale Score 3 04/28/2020 The thought [...] encounter Miscellaneous Notes * Telephone Encounter - Moi Amezquita MD - 03/07/2024 10:23 AM EDT Signed Prescriptions: Disp Refills Baclofen 10 MG Oral Tablet (Lioresal) 60 Tab*1 Sig: Take 1 Tablet by mouth 2 times a day as needed for Muscle spasms. As needed for spasm Authorizing Provider: MOI AMEZQUITA * Telephone Encounter - Areli Luis MED ASSIST - 03/07/2024 10:14 AM EDT Pending Prescriptions: Disp Refills Baclofen 10 MG Oral Tablet (Lioresal) 60 Tab*1 Sig: Take 1 Tablet by mouth 2 times a day as needed for Muscle spasms. As needed for spasm * Telephone Encounter - Areli Luis MED ASSIST - 03/07/2024 10:13 AM EDT Pending Prescriptions: Disp Refills Baclofen 10 MG Oral Tablet (Lioresal) 60 Tab*1 Sig: Take 1 Tablet by mouth 2 times a day as needed for Muscle spasms. As needed for spasm Last Visit: 12/21/2023 (in office), Visit date not found (telemedicine) Next Visit: 07/14/2024 Last date the medication was ordered: 01/09/2024 Patient Active Problem List Diagnosis History of gestational diabetes mellitus (GDM) Irritable bowel syndrome Mild mitral regurgitation Mild tricuspid regurgitation H/O section H/O myomectomy Incomplete right bundle branch block Decreased iron stores Wheezing Liver cyst Gastroesophageal reflux disease without esophagitis Labs: Lab Results Component Value Date/Time CREATININE - [facility] 0.6 05/23/2019 10:09 AM CREATININE-OUTSIDE LAB 0.69 12/26/2023 12:00 AM Lab Results Component Value Date/Time POTASSIUM - [facility] 4.0 05/23/2019 10:09 AM POTASSIUM-OUTSIDE LAB 4.4 12/26/2023 12:00 AM Lab Results Component Value Date/Time TSH - [facility] 1.05 03/12/2018 03:55 PM TSH - OUTSIDE LAB 1.04 01/10/2023 12:00 AM Lab Results Component Value Date/Time LDL (CALCULATED)-OUTSIDE LAB 89 12/26/2023 12:00 AM LDL (CALCULATED)-OUTSIDE LAB 99 01/10/2023 12:00 AM Lab Results Component Value Date/Time ALT-OUTSIDE LAB 11 12/13/2023 12:00 AM Hemoglobin AIC Results: Lab Results Component Value Date/Time HEMOGLOBIN A1C - [facility] 5.5 05/30/2019 01:35 PM * Telephone Encounter - Cherrie Love - 03/06/2024 8:26 PM EDTPending Prescriptions: Disp Refills Baclofen 10 MG Oral Tablet (Lioresal) 60 Tab*1 Sig: Take 1 Tablet by mouth 2 times a day as needed for Muscle spasms. As needed for spasm documented in this encounter Plan of Treatment Upcoming Encounters Date Type Department Care Team (Late st Contact Info) Description 03/14/2024 1:00 PM EDT Office Visit Hematology/Oncology [facility] [address] [facility] [place] [phone] Janeth Luis CRNP [address] [facility] [place] [address] 03/26/2024 9:00 AM EDT Telemedicine Interventional Pain Center, [facility] 132 [facility] [place] [address] Whitney Vasquez PA-C 132 [facility] [place] [address] 07/14/2024 12:40 PM EST Office Visit General Internal Medicine [facility] 200 [facility] [place] [address] Moi Amezquita MD [address] [facility] [place] [address] 12/11/2024 9:45 AM EDT Imaging Radiology [facility] 132 [facility] [place] [address] Health Maintenance Due Date Last Done Comments [...] as of this encounter Visit Diagnoses Diagnosis Muscle spasm of back Other symptoms referable to back documented in this encounter Care Teams Safety Belt Installer Relationship Specialty Start Date End Date Moi Amezquita MD [address] [place] [address] PCP - General Internal Medicine 11/09/17 documented as of this encounter
--- OUTSIDE RECORDS SUMMARY | 2024-05-09 18:49 | External Medical Summary ---
Author Name Unknown Address Unknown Organization [id number]:LABORATORY [facility] - [address] [place] [address] Laboratory Report Ordering Provider Test Date Status DOT HELM 03/14/2024 14:15:19 Final Observation Date Value Abnormality Reference (Units ) Status Vitamin B12 03/14/2024 14:15:19 [phone] (pg/mL) Final Performing Location LABORATORY [facility] - [address] [place] [address]
--- OUTSIDE RECORDS SUMMARY | 2024-05-09 18:49 | External Medical Summary ---
Author Name Unknown Address Unknown Organization [id number]:LABORATORY [facility] - [address] [facility] [address] Laboratory Report Ordering Provider Test Date Status CLAIRE BLOOM 03/14/2024 14:15:19 Final Observation Date Value Abnormality Reference (Units ) Status Iron 03/14/2024 14:15:19 72 33-151 (ug /dL) Final Iron-binding capacity 03/14/2024 14:15:19 354 250-425 (ug/dL) Final Transferrin Sat % 03/14/2024 14:15:19 20 15 -55 (%) Final Performing Location LABORATORY C - [address] [facility] [address]
--- OUTSIDE RECORDS SUMMARY | 2024-05-09 18:49 | External Medical Summary | Summary of Care ---
Author Name Unknown Organization [facility] Address [address] [place] [address] Phone [phone] Care Team Providers Care Building Construction Contractor Name Role Phone Moi Box MD Primary Care Provider + Reason for Referral * Ancillary Services (Within 30 days (routine)) - Authorized Specialty Diagnoses / Procedures Referred By Dalia ayala Referred To Contact Gastroenterology Diagnoses FH: colon cancer Moi Box MD [address] [place] [address] Referral ID Status Reason Start Date Expiration Date Visits Requested Visits Authorized [id number] Authorized Ancillary Services Required 03/25/2024 999 999 Question Answer Referral Priority Within 30 days (routine) Where should this appointment be scheduled? [facility] Comments ALERT: Do not order for pediatric patients (18 years or younger). Cancel off screen and order PEDS GASTROENTEROLOGY CONSULT (Type: 1 visit only-Evaluate and Treat) The following Pt. Instructions are available: - Gastro Colonoscopy Prep Instructions [58842] - Gastro Colonoscopy Prep Instructions (Barbadian Version) [21979] Go to the Pt. Instructions section within the Visit Navigator to access. Colonoscopy ASGE Guidelines: colon cancer ADDITIONAL INFORMATION 1. Is the patient on Coumadin? No 2. Is the patient on Pradaxa? No Reason for Visit * Reason Onset Date Comments Order Request 03/24/2024 Encounter Details Date Type Department Care Team (Late st Contact Info) Description 03/24/2024 Telephone OR [facility], Operating Room [facility] [address] [place] [phone] Vikki Nguyen DO [address] [place] [address] Order Request Allergies Active Allergy Reactions Criticality Noted Date [...] as of this encounter (statuses as of 03/25/2024) Medications Medication Sig Dispensed Refills Start Date [...] as of this encounter (statuses as of 03/25/2024) Active Problems Problem Noted Date Diagnosed Date [...] as of this encounter (statuses as of 03/25/2024) Resolved Problems Problem Noted Date Diagnosed Date Resolved Date Upper respiratory tract infection 09/13/2023 12/21/2023 Acute non-recurrent maxillary sinusitis 09/13/2023 12/21/2023 Diet controlled gestational diabetes mellitus (GDM) in third trimester 09/01/2019 11/19/2019 Overview: Reporting blood sugars to [facility]; last reported on 09/08/19 Diet controlled Hyperemesis gravidarum 04/19/201901/23 Overview: Single IUP noted No response to diclegis, reglan, compazine and phenergan, zofran, zofran ODT ER for fluids 04/02- also given zofran ER for fluids 04/17- also given solumedrol and discharged on prednisone taper starting at 40mg daily this has been only relief so far. @NOB 04/18/19- reviewed with [facility] recommending ACOG guidelines from 09/06- May [...] glucola would likely be invalid. Will await [facility] recommendations regarding screening H/O hyperemesis gravidarum 11/09/2017 1 08/30/2018 (infant) 11/09/201712/20 documented as of this encounter (statuses as of 03/25/2024) Immunizations Name Administration Dates Next Due COVID-19 [...] money to get more. Never true 09/13/2023 [place] Depression Scale Answer Date Recorded [place] Depression Scale Score 3 04/28/2020 The thought [...] 09/13/2023 Does the household have a re lar source of income? (Household - for ages [...] as of this encounter Miscellaneous Notes * Addendum Note - Moi Box MD - 03/25/2024 9:40 AM EDTAddended by: MOI BOX on: 03/25/2024 09:40 AM Modules accepted: Orders * Telephone Encounter - Delores Rodrigez OSA - 03/25/2024 9:37 AM EDT Pt r/s to 07/07/24 for EGD. Pt also wants colonoscopy. She has family hx of colon CA. Sending request to PCP to get order. . Dr. Box please place colonoscopy order for patient has a family hx of colon CA. Thank you. * Telephone Encounter - Krystina Romero RN - 03/24/2024 8:15 AM EDT Patient is scheduled for EGD on 04/02/[address] Dedra Nguyen. Do to the patient's allergic reactions to anesthesia medications (causing seizure -like reactions) Per Anesthesia: While I think we could safely provide some sort of anesthetic plan at [facility], I think this patient should be scheduled in a hospital setting. Not to mention, if she does display seizure like activity, there is an increased risk of calling an ambulance in the outpatient setting that would not be required in a hospital with associated ED. Thank you, Bianca The patient is aware someone from GI scheduling will call her to reschedule procedure in a hospitalsetting. Thank you, Krystina documented in this encounter Plan of Treatment Upcoming Encounters Date Type Department Care Team (Latest Contact Info) Description 03/26/2024 9:00 AM EDT Telemedicine [facility], [facility] [place] [address] Whitney Vasquez PA-C [address] [place] [address] 06/03/2024 11:00 AM EDT Laboratory Laboratory [facility] [place] [address] [place] [phone] Marilyn [facility] [address] [facility] [place] [address] 06/09/2024 3:30 PM EDT Office Visit Hematology/Oncolog y [facility] [address] [place] [phone] Janeth Luis CRNP [address] [facility] [place] [address] 07/07/2024 9:44 AM EST Hospital Encounter OR [facility], Operating Room, [facility] - 4th Floor [address] [place] [address] Judson Navarro, DO [address] [place] [address] 07/07/2024 9:44 AM EST - 07/07/2024 10:30 AM EST Surgery OR [facility], Operating Room, [facility] - 4th Floor [address] [place] [address] Judson Navarro, DO [address] [place] [address] COLONOSCOPY FLEXIBLE PROXIMAL DIAGNOSTIC 07/14/2024 12:40 PM EST Office Visit General Internal Medicine [facility] [address] [facility] [place] [address] Moi Box MD [address] [facility] [place] [address] 12/11/2024 9:45 AM EDT Imaging Radiology [facility] [address] [place] [address] Scheduled Procedures Name Priority Associated Diagnoses Date/Ti ny COLONOSCOPY FLEXIBLE PROXIMA L DIAGNOSTIC GERD (gastroesophageal reflux disease) Family history of colon cancer 07/07/2024 9:44 AM EST ESOPHAGOGASTRODUODENOSCOPY ( EGD), FLEXIBLE, TRANSORAL, DIAGNOSTIC GERD (gastroesophageal reflux disease) Family history of colon cancer 07/07/2024 9:44 AM EST Scheduled Referrals Name Type Priority Associated Diagnoses Orde r Schedule COLONOSCOPY, GI REFERRAL OP Referral Within 30 days (routine) FH: colon cancer Ordered: 03/25/2024 Health Maintenance Due Date Last Done Comments [...] as of this encounter Visit Diagnoses Diagnosis FH: colon cancer- Primary Family history of malignant neoplasm of gastrointestinal tract GERD (gastroesophageal reflux disease) Esophageal reflux Family history of colon cancer Family history of malignant neoplasm of gastrointestinal tract documented in this encounter Care Teams Building Construction Contractor Relationship Specialty Start Date End Date Moi Box MD [address] [facility] [place] [address] PCP - General Internal Medicine 11/09/17 documented as of this encounter
--- OUTSIDE RECORDS SUMMARY | 2024-05-09 18:49 | External Medical Summary | Summary of Care ---
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 HAND * Evaluate & Treat - Unlimited Visits (Within 10 days (routine)) - Pending Review Specialty Diagnoses / Procedures Referred By Contaretha t Referred To Contact Hematology/Oncology / Hematology Oncology Diagnoses Abnormal result of iron profile testing Moi Box MD [address] [place] [address] Referral ID Status Reason Start Date Expiration Date Visits Requested Visits Authorized [id number] Pending Review Specialty Services Required 01/17/[phone] Encounter Details Date Type Department Care Team (Late st Contact Info) Description 03/14/2024 1:00 PM EDT Office Visit Hematology/Oncology [facility] [address] [place] [address] Janeth Luis CRNP [address] [place] [address] Iron deficiency anemia due to chronic blood loss*; Vegetarian diet; Malaise and fatigue Allergies Active [...] as of this encounter (statuses as of 03/23/2024) Medications Medication Sig Dispensed Refills Start Date [...] for spasm 60 Tablet 1 03/07/2024 Active Aurovela FE 09/08 1-20 MG-MCG Oral Tablet Take 1 Tablet by mouth at bedtime. 08/28/2023 Discontinue d(Medicatio n List Clean Up) documented as of this encounter (statuses as of 03/23/2024) Active Problems Problem Noted Date Diagnosed Date [...] as of this encounter (statuses as of 03/23/2024) Resolved Problems Problem Noted Date Diagnosed Date Resolved Date Upper respiratory tract infection 09/13/2023 12/21/2023 Acute non-recurrent maxillary sinusitis 09/13/2023 12/21/2023 Diet controlled gestational diabetes mellitus (GDM) in third trimester 09/01/2019 11/19/2019 Overview: Reporting blood sugars to [facility]; last reported on 09/08/19 Diet controlled Hyperemesis gravidarum 04/19/201901/23 Overview: Single IUP noted No response to diclegis, reglan, compazine and phenergan, zofran, zofran ODT ER for fluids 04/02- also given zofran ER for fluids 04/17- also given solumedrol and discharged on prednisone taper starting at 40mg daily this has been only relief so far. @NOB 04/18/19- reviewed with [facility] recommending ACOG guidelines from 09/06- May [...] glucola would likely be invalid. Will await [facility] recommendations regarding screening H/O hyperemesis gravidarum 11/09/2017 1 08/30/2018 () 11/09/201712/20 documented as of this encounter (statuses as of 03/23/2024) Immunizations Name Administration Dates Next Due COVID-19 [...] Date Smoking Tobacco: Never Smokeless Tobacco: Never Tobacco Cessation:Counseling Given: Not Answered Alcohol Use Standard Drinks/Week Comments No 0 [...] money to get more. Never true 09/13/2023 Enfield Depression Scale Answer Date Recorded Enfield Depression Scale Score 3 04/28/2020 The thought [...] on file documented as of this encounter Last Filed Vital Signs Vital Sign Reading Time Taken Comments Blood Pressure 105/69 03/14/2024 12:53 PM EDT Pulse 61 03/14/2024 12:53 PM EDT Temperature 36.4 C (97.6 F) 03/14/2024 12:53 PM E DT Respiratory Rate - - Oxygen Saturation 98% 03/14/2024 12:53 PM EDT Inhaled Oxygen Concentration - - Weight 64.2 kg (141 lb 8 oz) 03/14/2024 12:53 PM EDT Height 162.6 cm (5' 4") 03/14/2024 12:53 PM EDT Body Mass Index 24.29 03/14/2024 12:53 PM EDT documented in this encounter Progress Notes * Janeth Luis CRNP - 03/14/2024 1:00 PM EDT Images from the original note were not included. Hematology/Oncology Outpatient Clinic note Oriana Sanders [address] [place] [address] Name: Afsaneh Woody Date: 03/14/2024 REFERRED BY: Dr. Moi Box CHIEF COMPLAINT: Afsaneh Woody is a 44 year old female here today for new consultation for iron deficiency. HISTORY OF PRESENT ILLNESS: Patient with PMH of endometriosis and uterine fibroid. Has always had HMB. For the last couple years heavier than normal. Is scheduled to have uterine polyp removed at the end of March. For the first two days of her cycle changes feminine products in about one hour, both a super plus tampon and a pad. Taking Vitron C one tablet every other day. Has been taking for about two years with no significantimprovement in iron sutdies. Started approximately January 2022. Taking one tablet daily initially. Cut back to one tablet every other day approximately one year ago. Patient tolerates iron supplement reasonably well. Did have some constipation. Unable to tolerate OCP. Developed migraines. Has acid reflux on the progesterone only pill. Is considering having an IUD placed. Biggest complaint is fatigue. Worse over the last 2-3 years. Also has a four year old child at home. Is also eating a mostly vegetarian diet. Does have moments where she eats beef because she feels her body craves it. For a couple months was taking ibuprofen one tablet every four hours for back pain. Also did multiple prednisone tapers. Stopped that about one week ago. Has been having worsening reflux since starting this. Always had reflux but had maintained on Prilosec once a day. Increased in the last couple weeks to taking Prilosec twice a day. Has been having more constipation since January. Was traveling in [place] for four weeks so thought that may have thrown her off as eating many foods she generally doesn't. Denies melena or hematochezia. Has previously tested negative for celiac disease. UTD on mammograms Patient does not smoke or drink alcohol. Denies any known family history of blood disorders. Patient's past medical history, social history, and family history were reviewed and updated. Past Medical History: Diagnosis Date Endometriosis Fibroid [...] relief so far. @NOB 04/18/19- reviewed with [facility] recommending ACOG guidelines from 09/06- May [...] performed by Domenico Blunt DO at OR [facility] PUNCTURE RETRIEVAL OF OOCYTE REMOVAL OF FIBROID UTERUS TUMOR 2010 Open myomectomy Family History Problem Relation Name Age of Onset Diabetes Mother prediabetes Osteoporosis Mother Other (epilepsy) Mother Coronary Artery disease Mother 78 Hypertension Father Stroke Father Heart disease Father a-fib Diabetes Father prediabetes Mental Disorder Sister Uterine cancer Grandmother (Maternal) No Known Problems Daughter Diabetes Aunt (Maternal) Breast Cancer Aunt (Maternal) Great Aunt Diabetes Aunt (Paternal) Stroke Aunt (Paternal) Diabetes Aunt (Paternal) Diabetes Aunt (Paternal) Colon cancer Uncle (Maternal) Social History Socioeconomic History Marital status: Spouse name: Ulises, 46yo, FOB#1 Number of children: 1 Years of education: 16 Highest education level: Not on file Occupational History Occupation: [employer] Tobacco Use Smoking status: Never Smokeless tobacco: Never Vaping Use Vaping status: Never Used Substance and Sexual Activity Alcohol use: No Drug use: No Sexual activity: Yes Partners: Male Other Topics Concern Not on file Social History Narrative Not on file Social Determinants of Health Financial Resource Strain: Low Risk (09/13/2023) Financial Resource Strain Do you have any trouble paying for your medications, or do you think you might in the future? (Adult - for ages 18 years and over): No Does your family have trouble paying for medicine? (Household - for ages 0-17 years): Not on file Food Insecurity: No Food Insecurity (09/13/2023) Food Insecurity Do you need food for this week? (Adult - for ages 18 years and over): No Are you able to get enough food for your family? (Household - for ages 0-17 years): Not on file Does your family need food this week? (Household - for ages 0-17 years): Not on file Do you always have enough food for your family? (Household - for ages 0-17 years): Not on file Transportation Needs: No Transportation Needs (09/13/2023) Transportation Needs Do you have trouble getting a ride to medical visits or work? (Adult - for ages 18 years and over):Never True Does your family have a hard time getting a ride to doctors visits? (Household - for ages 0-17 years): Not on file Has lack of transportation kept you from medical appointments, meetings, work, or from getting things needed for daily living? Check all that apply. (Adult - for ages 18 years and over): Not on file Do you (or your family) have trouble finding or paying for a ride (transportation)? (Household - for ages 0-17 years): Not on file Social Connections: Socially Integrated (09/13/2023) Social Connections How often do you feel lonely or isolated from those around you? (Adult - for ages 18 years and over): Never Housing Stability: Low Risk (09/13/2023) Housing Stability Do you currently live in a senior living or have no steady place to sleep at night? (Adult - for ages 18 years and over): No Do you think you are at risk of becoming homeless? (Adult - for ages 18 years and over): No Does your family worry about paying for your home or becoming homeless? (Household - for ages 0-17 years): Not on file Are you homeless or worried that you might be in the future? (Adult - for ages 18 years and over): Not on file Are you (or your family) homeless or worried that you might be in the future? (Household - for ages0-17 years): Not on file Review of patient's allergies indicates: Allergen Reactions Duramorph [Morphine] Seizure Pt reports all narcotics - extrapyramidal symptoms Peanut-Containing Drug Products Anaphylaxis Propofol Seizure Pt reports all anesthesia medications - extrapyramidal symptoms Fentanyl Other Allergy (See Comments) Other (Please comment) Sneezing, itchy watery eyes, sore throat, fatigue Pollen Other (Please comment) Sneezing, watery itchy red eyes Ragweed Other (Please comment) Sneezing, watery itchy red eyes Versed [Midazolam] Current Outpatient Medications Medication Sig Dispense Refill Fluticasone Propionate 50 MCG/ACT Nasal Suspension Administer 2 Sprays into each nostril in the morning. Vitron-C 65-125 MG Oral Tablet (Iron-Vitamin C) Take 1 Tablet by mouth in the morning. Ibuprofen 600 MG Oral Tablet (Motrin) Take 1 Tablet by mouth every 6 hours as needed. Gabapentin 300 MG Oral Capsule (Neurontin) Take 1 Capsule by mouth in the morning and 1 Capsule before bedtime. 180 Capsule 0 Omeprazole 20 MG Oral Capsule Delayed Release (PriLOSEC) TAKE 1 CAPSULE BY MOUTH IN THE MORNING. 1 HOUR BEFORE THE FIRST MEAL OF THE DAY. 90 Capsule 1 Baclofen 10 MG Oral Tablet (Lioresal) Take 1 Tablet by mouth 2 times a day as needed for Muscle spasms. As needed for spasm 60 Tablet 1 Acetaminophen 500 MG Oral Tablet (Tylenol) Take 2 Tablets by mouth every 6 hours as needed. Albuterol Sulfate HFA 108 (90 Base) MCG/ACT Inhalation Aerosol Solution Inhale 2 Puffs by mouth every 6 hours as needed for Wheezing. 18 g 0 predniSONE 20 MG Oral Tablet (Deltasone) Take 3 tabs for 3 days, 2 tabs for 3 days, 1 tab for 3 days, 1/2 tab for 3 days (Patient not taking: Reported on 12/05/2023) 20 Tablet 0 No current facility-administered medications for this visit. REVIEW OF SYSTEMS: SEE HPI - otherwise negative OBJECTIVE: Filed Vitals: 03/14/24 1253 BP: 105/69 Pulse: 61 Temp: 36.4 C (97.6 F) TempSrc: Tympanic SpO2: 98% Weight: 64.2 kg (141 lb 8 oz) Height: 1.626 m (5' 4") Wt Readings from Last 5 Encounters: 03/14/24 64.2 kg (141 lb 8 oz) 12/21/23 63.7 kg (140 lb 8 oz) 12/05/23 65.3 kg (143 lb 14.4 oz) 10/16/23 65.8 kg (145 lb) 09/13/23 66.4 kg (146 lb 4.8 oz) PHYSICAL EXAM: Constitutional: no acute distress Neuro: alert, oriented to person, place, and time, gait normal HEENT: normal: normocephalic, atraumatic; neck with no masses or tenderness; no cervical/supraclavicular lymphadenopathy CV: normal rate and rhythm, no murmur Chest: normal respiratory effort, lungs clear to auscultation Abdomen: normal: soft, bowel sounds normal, no masses, tenderness or organomegaly Extremities: no edema Skin: warm and dry LABS per [facility] 12/26/23: IMPRESSION: Iron deficiency anemia, Heavy menstrual bleedin44 y/o female with PMH of endometriosis and uterine fibroid. Has always had HMB. For the last couple years heavier than normal. Is scheduled to have uterine polyp removed at the end of March. For the first two days of her cycle changes feminine products in about one hour, both a super plus tampon and a pad. Taking Vitron C one tablet every other day. Has been taking for about two years with no significantimprovement in iron studies. Started approximately January 2022. Taking one tablet daily initially. Cut back to one tablet every other day approximately one year ago. Patient tolerates iron supplement reasonably well. Did have some constipation. Unable to tolerate OCP. Developed migraines. Has acid reflux on the progesterone only pill. Is considering having an IUD placed. Biggest complaint is fatigue. Worse over the last 2-3 years. Also has a four year old child at home. Is also eating a mostly vegetarian diet. Does have moments where she eats beef because she feels her body craves it. For a couple months was taking ibuprofen one tablet every four hours for back pain. Also did multiple prednisone tapers. Stopped that about one week ago. Has been having worsening reflux since starting this. Always had reflux but had maintained on Prilosec once a day. Increased in the last couple weeks to taking Prilosec twice a day. Has been having more constipation since January. Was traveling in [place] for four weeks so thought that may have thrown her off as eating many foods she generally doesn't. Denies melena or hematochezia. Has previously tested negative for celiac disease. UTD on mammograms Patient does not smoke or drink alcohol. Denies any known family history of blood disorders. PLAN: Plan to update lab work today including cbc/diff, iron screen, ferritin, vitamin b12 and folic acid Further recommendations based on results. If no improvement in iron studies on Vitron C one tablet every other day will plan to move forward with IV Monoferric -Reviewed the rare but serious risk of infusion reactions, including anaphylaxis, with IV iron. Also discussed the use of rescue medications as needed to mitigate these risks. Patient voiced understanding and ultimately chose to proceed with IV iron infusion if indicated. WIRE WINDING MACHINE TENDER f/u as recommended Will hold on EGD and colonoscopy at this time d/t anesthesia allergy Patient will complete FOBT as ordered by PCP Will consider H pylori stool antigen. Patient currently taking PPI BID. RTC in three months with provider with cbc/diff, iron screen and ferritin JORDAN Palumbo documented in this encounter Nursing Notes * Cleo Pabon, MED ASSIST - 03/14/2024 12:56 PM EDT Patient identifed by name and birthdate Do you have any concerns about pain management for today's visit? Yes. Patient instructed to discuss pain concerns with provider during the visit today Living Will or Advance Directive for Health Care as noted on the problem list. [facility] is a way you can talk to your provider on line through e-mail. Would you like to sign up? I can activate it for you? ALREADY ACTIVE Filed Vitals: 03/14/24 1253 BP: 105/69 Pulse: 61 Temp: 36.4 C (97.6 F) TempSrc: Tympanic SpO2: 98% Weight: 64.2 kg (141 lb 8 oz) Height: 1.626 m (5' 4") Patient was instructed to not get up on the exam table/exam chair until directed and assisted by their provider; patient is to remain seated in the chair/ wheelchair/ exam table/ exam chair for fall prevention and safety reasons. Patient is aware to have assistance to step down off exam table/exam chair with personnel. Patient voiced full comprehension of instructions. documented in this encounter Plan of Treatment Upcoming Encounters Date Type Department Care Team (Latest Contact Info) Description 4 9:00 AM EDT Telemedicine Interventional [facility], [facility] [address] [place] [address] Whitney Vasquez PA-C [address] [place] [address] 4 11:15 AM EDT Hospital Encounter ENDO [facility], Endoscopy Room [facility] [address] [place] [phone] Vikki Nguyen DO [address] [place] [address] 4 11:15 AM EDT - 4 11:45 AM EDT Surgery ENDO [facility], Endoscopy Room [facility] [address] [place] [phone] Vikki Nguyen DO [address] [place] [address] ESOPHAGOGASTRODUODENOSCOPY (EGD), FLEXIBLE, TRANSORAL, DIAGNOSTIC 4 3:30 PM EDT Laboratory Laboratory [facility] [address] [place], [place] [phone] [place], Lab [facility] [address] [facility] [place] [address] 4 11:00 AM EDT Laboratory Laboratory [facility] [place] [address] [place] [place] [id number] [place], Lab [facility] [address] [facility] [place] [address] 4 3:30 PM EDT Office Visit Hematology/Onco logy [facility] [place] [address] [place] [phone] Janeth Luis CRNP [address] [place] [id number] 4 12:40 PM EST Office Visit General Internal Medicine [facility] [place] 200 [facility] [place], [place] [address] Moi Box MD [address] [facility] [place], [place] [address] 5 9:45 AM EDT Imaging Radiology [facility] [address] [place] [address] Scheduled Procedures Name Priority Associated Diagnoses Date/Ti [...] Not on filedocumented as of this encounter Results * FOLIC ACID (03/14/2024 2:15 PM EDT) Folic Acid 14.0 >4.5 ng/mL 03/15/2024 12:35 AM EDT [facility] Blood Venous blood specimen / Unknown Venipuncture / Unknown 03/14/2024 2:15 PM EDT 03/14/2024 2:15 PM EDT Janeth [facility] [address] [place] [address] * FERRITIN (03/14/2024 2:15 PM EDT) Ferritin 35 13 - 150 ng/mL 03/15/2024 12:35 AM EDT [facility] Comment:Postmenopausal women have higher ferritin levels than pre-menopausal women. The above reference interval is based on pre-menopausal women. Blood Venous blood specimen / Unknown Venipuncture / Unknown 03/14/2024 2:15 PM EDT 03/14/2024 2:15 PM EDT Janethadam Lovechavo [facility] Performing Organization Address City/[facility]/ZIP Co de Phone Number [facility] [address] [place] [address] * IRON SCREEN, INCLUDING TIBC (03/14/2024 2:15 PM EDT) Iron 72 33 - 151 ug/dL 03/14/2024 11:59 PM EDT LABORATORY [facility] Iron Binding Capacity 354 250 - 425 ug/dL 03/14/2024 11:59 PM EDT [facility] Transferrin Saturation Percent 20 15 - 55 % 03/14/2024 11:59 PM EDT LAB[facility]ATORY [facility] Blood Venous blood specimen / Unknown Venipuncture / Unknown 03/14/2024 2:15 PM EDT 03/14/2024 2:15 PM EDT Janeth Kati [facility] BLOOD ORDER [facility] Performing Organization Address [facility] de Phone Number [facility] [address] [place] [address] documented in this encounter Visit Diagnoses Diagnosis Iron deficiency anemia due to chronic blood loss- Primary Iron deficiency anemia secondary to blood loss (chronic) Vegetarian diet Other specified conditions influencing health status Malaise and fatigue Other malaise and fatigue GERD (gastroesophageal reflux disease) Esophageal reflux documented in this encounter Care Teams Purchasing Clerk Relationship Specialty Start Date End Date Moi Box MD [address] [place] [address], [place] [address] PCP - General Internal Medicine 11/09/17 documented as of this encounter
--- OUTSIDE RECORDS SUMMARY | 2024-05-09 18:49 | External Medical Summary ---
Author Name Unknown Address Unknown Organization K09:[facility] [place] [address] Laboratory Report Ordering Provider Test Date Status DOT HELM 03/14/2024 14:15:19 Final Observation Date Value Abnormality Reference (Units ) Status Magnesium 03/14/2024 14:15:19 2.3 1.5-2.6 (m g/dL) Final Performing Location [facility] [place] [address]
--- OUTSIDE RECORDS SUMMARY | 2024-05-09 18:49 | External Medical Summary | Summary of Care ---
Author Name Unknown Organization [facility] Address [address] [place] [address] Phone [phone] Care Team Providers Care Cyber Legal Advisor Name Role Phone Moi Box MD Primary Care Provider + Reason for Referral * Ancillary Services (Within 30 days (routine)) - Authorized Specialty Diagnoses / Procedures Referred By Dalia ayala Referred To Contact Gastroenterology Diagnoses FH: colon cancer Moi Box MD [address] [place] [address] Referral ID Status Reason Start Date Expiration Date Visits Requested Visits Authorized [id number] Authorized Ancillary Services Required 03/25/2024 999 999 Question Answer Referral Priority Within 30 days (routine) Where should this appointment be scheduled? [facility] Comments ALERT: Do not order for pediatric patients (18 years or younger). Cancel off screen and order PEDS GASTROENTEROLOGY CONSULT (Type: 1 visit only-Evaluate and Treat) The following Pt. Instructions are available: - Gastro Colonoscopy Prep Instructions [14208] - Gastro Colonoscopy Prep Instructions (Italian Version) [35992] Go to the Pt. Instructions section within [...] [facility], Operating Room [facility] [address] [place] [id number] Vikki Nguyen DO [address] [place] [address] Order Request Allergies Active Allergy Reactions Criticality [...] 09/01/2019 11/19/2019 Overview: Reporting blood sugars to [facility]; last reported on 09/08/19 Diet controlled Hyperemesis gravidarum 04/19/201901/23 Overview: Single IUP noted No response to diclegis, reglan, compazine and phenergan, zofran, zofran ODT ER for fluids 04/02- also given zofran ER for fluids 04/17- also given solumedrol and discharged on prednisone taper starting at 40mg daily this has been only relief so far. @NOB 04/18/19- reviewed with [facility] recommending ACOG guidelines from 09/06- May [...] glucola would likely be invalid. Will await [facility] recommendations regarding screening H/O hyperemesis gravidarum [...] money to get more. Never true 09/13/2023 [place] Depression Scale Answer Date Recorded [place] Depression Scale Score 3 04/28/2020 The thought [...] provide some sort of anesthetic plan at [facility], I think this patient should be scheduled [...] AM EDT Telemedicine Interventional [facility] [address] [facility] [place] [address] Whitney Vasquez PA-C [address] [place] [address] 06/03/2024 11:00 AM EDT Laboratory [facility] [place] [address] [place] [phone] Marilyn [facility] [place] [address] [facility] [place] [address] 06/09/2024 3:30 PM EDT Office Visit Hematology/Oncolog y [facility] [place] [address] [place] [phone] Janeth Luis CRNP [address] [facility] [place] [address] 07/07/2024 9:44 AM EST Hospital Encounter OR [facility], Operating Room, [facility] - 4th Floor [address] [place] [address] Judson Navarro, DO [address] [place] [address] 07/07/2024 9:44 AM EST - 07/07/2024 10:30 AM EST Surgery OR [facility], Operating Room, [facility] - 4th Floor [address] [place] [address] Judson Navarro, DO [address] [place] [address] COLONOSCOPY FLEXIBLE PROXIMAL DIAGNOSTIC 07/14/2024 12:40 PM EST Office Visit General Internal Medicine [facility] [address] [facility] [place] [address] Moi Box MD [address] [facility] [place] [address] 12/11/2024 9:45 AM EDT Imaging Radiology [facility] [address] [place] [address] Scheduled Procedures Name Priority Associated Diagnoses Date/Ti pa COLONOSCOPY FLEXIBLE PROXIMA L DIAGNOSTIC GERD (gastroesophageal [...] tract documented in this encounter Care Teams Cyber Legal Advisor Relationship Specialty Start Date End Date Moi Box MD [address] [place] [address] PCP - General Internal Medicine 11/09/17 documented as of this encounter
--- OUTSIDE RECORDS SUMMARY | 2024-05-09 18:49 | External Medical Summary ---
Author Name Unknown Address Unknown Organization [id number]:[facility] [place] [address] Laboratory Report Ordering Provider Test Date Status CLAIRE BLOOM 03/14/2024 14:15:19 Final Observation Date Value Abnormality Reference (Units ) Status SYNC LEUKOCYTES IN BLOOD BY AUTOMATED COUNT 03/14/2024 14:15:19 5.21 4.00-10.80 (K/uL) Final Segs 03/14/2024 14:15:19 37.3 Below low normal 40.0-75.0 (%) Final Lymphs % 03/14/2024 14:15:19 53.4 Above high normal 18.0-42.0 (%) Final Monos 03/14/2024 14:15:19 8.1 1.0-11.0 (%) Final Eosinophils 03/14/2024 14:15:19 1.2 0.0-6.0 (%) Final Basos 03/14/2024 14:15:19 0.0 0.0-2.0 (%) Final Absolute Segs 03/14/2024 14:15:19 1.95 1.80-7.70 (K/uL) Final Lymphs, absolute 03/14/2024 14:15:19 2.78 1.00-4.80 (K/ul) Final Monos, Abs 03/14/2024 14:15:19 0.42 0.00-1.10 (K/uL) Final Eos, Abs 03/14/2024 14:15:19 0.06 0.00-0.70 (K/uL) Final Basos, Abs 03/14/2024 14:15:19 0.00 0.00-0.20 (K/uL) Final Performing Location [facility] [place] [address]
--- OUTSIDE RECORDS SUMMARY | 2024-05-09 18:49 | External Medical Summary ---
Author Name Unknown Address Unknown Organization [id number]:[facility] - [address] [facility] [place] [address] Laboratory Report Ordering Provider Test Date Status CLAIRE BLOOM 03/14/2024 14:15:19 Final Observation Date Value Abnormality Reference (Units ) Status Ferritin 03/14/2024 14:15:19 35 13-150 (ng /mL) Final Postmenopausal women have hi gher ferritin levels than pre-menopausal women. The above reference interval is based on pre-menopausal women. Performing Location [facility] [address] [place] [address]
--- OUTSIDE RECORDS SUMMARY | 2024-05-09 18:49 | External Medical Summary ---
Author Name Unknown Address Unknown Organization [id number]:[facility] - [address] [place] [address] Laboratory Report Ordering Provider Test Date Status MERLECLAIRE 03/14/2024 14:15:19 Final Observation Date Value Abnormality Reference (Units ) Status Folic Acid 03/14/2024 14:15:19 14.0 >4.5 (ng/ mL) Final Performing Location [facility] [address] [place] [address]
--- OUTSIDE RECORDS SUMMARY | 2024-05-09 18:49 | External Medical Summary ---
Author Name Unknown Address Unknown Organization K09:[facility] [place] [address] Laboratory Report Ordering Provider Test Date Status BIA GILMORE 03/24/2024 09:20:24 Final Observation Date Value Abnormality Reference (Units ) Status Occult Blood (EIA) 03/24/2024 09:20:24 Negative N egative Final Performing Location [facility] [address]
--- OUTSIDE RECORDS SUMMARY | 2024-05-09 18:49 | External Medical Summary ---
Author Name Unknown Address Unknown Organization K09:[facility] [place] [address] Laboratory Report Ordering Provider Test Date Status CLAIRE BLOOM 03/14/2024 14:15:19 Final Observation Date Value Abnormality Reference (Units ) Status WBC, Total 03/14/2024 14:15:19 5.21 4.00-10.8 0 (K/uL) Final RBC 03/14/2024 14:15:19 4.30 3.85-5.15 (M/uL) Final Hemoglobin 03/14/2024 14:15:19 12.8 12.0-15.3 (g/dL) Final HCT 03/14/2024 14:15:19 39.1 36.0-45.2 (%) Final MCV 03/14/2024 14:15:19 90.9 81.5-97.5 (fL) Final MCH 03/14/2024 14:15:19 29.8 27.0-34.0 (pg) Final MCHC 03/14/2024 14:15:19 32.7 32.0-36.0 (g/dL) Final RDW 03/14/2024 14:15:19 14.9 11.5-15.5 (%) Final Platelets 03/14/2024 14:15:19 332 140-400 (K /uL) Final MPV 03/14/2024 14:15:19 9.7 6.6-11.1 ( fL) Final Performing Location [facility] [place] [address]
--- OUTSIDE RECORDS SUMMARY | 2024-05-09 18:50 | External Medical Summary | Summary of Care ---
Author Name Unknown Organization [facility] Address [address] [place] [address] Phone [phone] Care Team Providers Care Textiles Sales Representative Name Role Phone Moi Box MD Primary Care Provider + Encounter Details Date Type Department Care Team (Late st Contact Info) Description 12/28/2023 Orders Only General Internal Medicine [facility] [address] [place] [address] Moi Box MD [address] [place] [address] Lipid screening; Low blood sugar; Abnormal iron saturation Allergies Active Allergy Reactions Criticality Noted Date [...] as of this encounter (statuses as of 12/28/2023) Medications Medication Sig Dispensed Refills Start Date End Date Status Acetaminophen 500 MG Oral Tablet (Tylenol) Take 2 Tablets by mouth every 6 hours as needed. 0 10/17/2019 Active Fluticasone Propionate 50 MCG/ACT Nasal Suspension Administer 2 Sprays into each nostril in the morning. 0 02/01/2021 Active Vitron-C 65-125 MG Oral Tablet (Iron-Vitamin C) Take 1 Tablet by mouth in the morning. 0 Active Ibuprofen 600 MG Oral Tablet (Motrin) Take 1 Tablet by mouth every 6 hours as needed. 0 Active Aurovela FE 09/08 1-20 MG-MCG Oral Tablet Take 1 Tablet by mouth at bedtime. 0 08/28/2023 Active Albuterol Sulfate HFA 108 (90 Base) MCG/ACT Inhalation Aerosol Solution Inhale 2 Puffs by mouth every 6 hours as needed for Wheezing. 18 g 0 09/13/2023 Active predniSONE 20 MG Oral Tablet (Deltasone)Indicat ions:Lumbar radicular pain,Muscle spasm of back Take 3 tabs for 3 days, 2 tabs for 3 days, 1 tab for 3 days, 1/2 tab for 3 days 20 Tablet 0 11/21/2023 Active Additional Information Patient not taking.Reported on 12/05/2023 Omeprazole 20 MG Oral Capsule Delayed Release (PriLOSEC)Indicati ons:Gastroesophage al reflux disease without esophagitis Take 1 Capsule by mouth in the morning. 1 hour before the first meal of the day. 30 Capsule 1 12/05/2023 Active Baclofen 10 MG Oral Tablet (Lioresal)Indicati ons:Muscle spasm of back Take 1 Tablet by mouth in the morning and 1 Tablet before bedtime. As needed for spasm. 60 Tablet 0 12/24/2023 Active Gabapentin 300 MG Oral Capsule (Neurontin) Take 1 Capsule by mouth in the morning and 1 Capsule before bedtime. 180 Capsule 0 12/24/2023 Active documented as of this encounter (statuses as of 12/28/2023) Active Problems Problem Noted Date Diagnosed Date [...] as of this encounter (statuses as of 12/28/2023) Resolved Problems Problem Noted Date Diagnosed Date Resolved Date Upper respiratory tract infection 09/13/2023 12/21/2023 Acute non-recurrent maxillary sinusitis 09/13/2023 12/21/2023 Diet controlled gestational diabetes mellitus (GDM) in third trimester 09/01/2019 11/19/2019 Overview: Reporting blood sugars to [facility]; last reported on 09/08/19 Diet controlled Hyperemesis gravidarum 04/19/201901/23 Overview: Single IUP noted No response to diclegis, reglan, compazine and phenergan, zofran, zofran ODT ER for fluids 04/02- also given zofran ER for fluids 04/17- also given solumedrol and discharged on prednisone taper starting at 40mg daily this has been only relief so far. @NOB 04/18/19- reviewed with [facility] recommending ACOG guidelines from 09/06- May [...] glucola would likely be invalid. Will await [facility] recommendations regarding screening H/O hyperemesis gravidarum 11/09/2017 1 08/30/2018 (infant) 11/09/201712/20 documented as of this encounter (statuses as of 12/28/2023) Immunizations Name Administration Dates Next Due COVID-19 [...] 18,06/01/2017 TDAP (age 10 and older)(Boostrix) 09/05/2019 TDAP (age 11 and older)(Adacel) 03/20/2015 documented as of this encounter Social [...] money to get more. Never true 09/13/2023 [place] Depression Scale Answer Date Recorded [place] Depression Scale Score 3 04/28/2020 The thought of harming myself has occurred to me . (Pt Reported) 04/28/2020 Sex and Gender Information Value Date Recorded [...] 9:00 AM EDT Telemedicine Interventional Pain Center, [facility] [address] [facility] [place] [address] Whitney Vasquez PA-C [address] [facility] [place] [address] 07/14/2024 12:40 PM EST Office Visit [facility] [address] [place] [address] Moi Box MD [address] [place] [address] 12/11/2024 9:45 AM EDT Imaging Radiology [facility] [address] [facility] [place] [address] Health Maintenance Due Date Last Done Comments COVID-19 Vaccine ( season) 2023 06/07/2023, 05/31/2022, 06/16/2021, Additional history exists Mammogram 12/12/2024 12/13/2023, 01/18, 01/12/2023, Additional history exists Depression Screening 12/20/2024 12/21/2023 Pap Smear 07/04/2026 07/04/2023, 06/20, 12/16/2018, Additional history exists Cervical Cancer Screening 07/04/2028 HPV/Co-Test 07/04/2028 07/04/2023 Lipid Panel 12/25/2028 12/26/2023, 01/10/2023 DTaP,Tdap,and Td Vaccines (4 - Td or Tdap) 09/05/2029 09/05/2019, 05/30/2015 (Done elsewhere), 03/20/2015 Influenza Vaccine (FLU shot) Completed , 04/28/2020, 05/21/2019, Additional history exists GARDASIL-HPV IMMUNIZATION SERIES Aged Out No longer eligible based on [...] Procedure Name Priority Date/Time Associated Diagnosis Comments LIPID PANEL WITH DIRECT LDL IF TG IS HIGH Routine 12/26/2023 Lipid screening HEMOGLOBIN A1C Routine 12/26/2023 Low blood sugar BASIC METABOLIC PANEL Routine 12/26/2023 Low blood sugar IRON SCREEN, INCLUDING TIBC Routine 12/26/2023 Abnormal iron saturation CBC Routine 12/26/2023 Abnormal iron saturation FERRITIN Routine 12/26/2023 Abnormal iron saturation documented in this encounter Results * FERRITIN (12/26/2023) Blood Venous blood specimen / Unknown 12/26/2023 Moi Box MD LAB BLOOD ORDERA BLES Performing Organization Address [facility] de Phone Number OUTSIDE LAB (SEE SCANNED REPORT) * IRON SCREEN, INCLUDING TIBC (12/26/2023) Blood Venous blood specimen / Unknown 12/26/2023 Moi Box MD LAB BLOOD ORDERA BLES Performing Organization Address [facility] de Phone Number OUTSIDE LAB (SEE SCANNED REPORT) * CBC WITH WBC DIFFERENTIAL (12/26/2023) Pathologist [facility] HGB 11.8 11.7 - 15.5 G/DL OUTSIDE LAB (SEE SCANNED REPORT) Blood Venous blood specimen / Unknown 12/26/2023 Moi Box MD LAB BLOOD ORDERA BLES Performing Organization Address [facility] de Phone Number OUTSIDE LAB (SEE SCANNED REPORT) * (ABNORMAL) HEMOGLOBIN A1C (12/26/2023) [facility] HEMOGLOBIN, [id number] LAB 5.8(H) <5.7 % OUTSIDE LAB (SEE SCANNED REPORT) Blood Capillary blood specimen / Unknown 12/26/2023 Moi Box MD LAB BLOOD ORDERA BLES Performing Organization Address [facility] de Phone Number OUTSIDE LAB (SEE SCANNED REPORT) * BASIC METABOLIC PANEL (12/26/2023) CREATININE-OUTS [place] LAB 0.69 0.50 - 0.99 MG/DL OUTSIDE LAB (SEE SCANNED REPORT) EGFR-OUTSIDE LAB 110 >=60 ML/MIN OUTSIDE LAB (SEE SCANNED REPORT) POTASSIUM-OUTSI DE LAB 4.4 3.5 - 5.3 MMOL/L OUTSIDE LAB (SEE SCANNED REPORT) GLUCOSE-OUTSIDE LAB 92 65 - 139 MG/DL OUTSIDE LAB (SEE SCANNED REPORT) Blood Blood sample taken from central line / Unknown 12/26/2023 Moi Box MD LAB BLOOD ORDERA BLES Performing Organization Address City/[facility]/ZIP Co de Phone Number OUTSIDE LAB (SEE SCANNED REPORT) * LIPID PANEL WITH DIRECT LDL IF TG IS HIGH (12/26/2023) TRIGLYCERIDES-O UTSIDE LAB 104 <150 MG/DL OUTSIDE LAB (SEE SCANNED REPORT) CHOLESTEROL-OUT SIDE LAB 163 <200 MG/DL OUTSIDE LAB (SEE SCANNED REPORT) HDL-OUTSIDE LAB 54 >=50 MG/DL OUT SIDE LAB (SEE SCANNED REPORT) CHOL/HDL RATIO-OUTSIDE LAB 3.0 <5.0 CALC OUTSIDE LAB (SEE SCANNED REPORT) LDL (CALCULATED)-OU TSIDE LAB 89 <100 MG/DL OUTSIDE LAB (SEE SCANNED REPORT) Blood Capillary blood specimen / Unknown 12/26/2023 Moi Box MD LAB BLOOD ORDERA BLES Performing Organization Address City/[facility] de Phone Number OUTSIDE LAB (SEE SCANNED REPORT) documented in this encounter Visit Diagnoses Diagnosis Lipid screening Screening for lipoid disorders Low blood sugar Hypoglycemia, unspecified Abnormal iron saturation Other abnormal blood chemistry documented in this encounter Care Teams Textiles Sales Representative Relationship Specialty Start Date End Date Moi Box MD [address] [place] [address] PCP - General Internal Medicine 11/09/17 documented as of this encounter
--- OUTSIDE RECORDS SUMMARY | 2024-05-09 18:50 | External Medical Summary | Summary of Care ---
Author Name Unknown Organization [facility] Address [address] [place] [address] Phone [phone] Care Team Providers Care Ball Mill Operator Name Role Phone Moi Box MD Primary Care Provider + Reason for Referral * Evaluate & Treat - Unlimited Visits (Within 10 days (routine)) - Pending Review Specialty Diagnoses / Procedures Referred By Dalia ayala Referred To Contact Neuro/Ortho Surgery - Spine. / Neurological Surgery Diagnoses Mid back pain Chronic right-sided low back pain with right-sided sciatica Moi Box MD [facility] [place] [address] [place] [id number] Referral ID Status Reason Start Date Expiration Date Visits Requested Visits Authorized [id number] Pending Review Specialty Services Required 12/21/[phone] Question Answer Referral Priority Within 10 days (routine) Where should this appointment be scheduled? [facility] Select spine region: Back - Thoracic/Lumbar Do you have any recent complete loss of bladder or bowel function? No Reason for Visit * Reason Comments Physical-Exam Yearly physical. Pt would like to discuss what is next for her back issues. Pt has a growth on middle of chest, has appt with derm in May and wants to know if she needs seen sooner Encounter Details Date Type Department Care Team (Late st Contact Info) Description 12/21/2023 8:40 AM EDT Office Visit General Internal Medicine [place] [facility] [address] [place] [id number] Moi Box MD [address] [place] [id number] Physical exam, annual*; Uterine cyst; Mid back pain; Chronic right-sided low back pain with right-sided sciatica; Liver cyst; Travel advice encounter; Lipid screening; Gastroesophageal reflux disease without esophagitis; Low blood sugar; Malaise and fatigue; Skin cyst; Decreased iron stores Allergies Active Allergy Reactions Criticality Noted Date [...] as of this encounter (statuses as of 12/21/2023) Medications Medication Sig Dispensed Refills Start Date [...] for Wheezing. 18 g 0 09/13/2023 Active Baclofen 10 MG Oral Tablet (Lioresal)Indicati ons:Muscle spasm of back Take 1 Tablet by mouth in the morning and 1 Tablet before bedtime. As needed for spasm. 60 Tablet 0 11/13/2023 Active predniSONE 20 MG Oral Tablet (Deltasone)Indicat [...] 1 Capsule before bedtime. 180 Capsule 0 11/26/2023 Active Omeprazole 20 MG Oral Capsule Delayed Release (PriLOSEC)Indicati ons:Gastroesophage al reflux disease without esophagitis Take 1 Capsule by mouth in the morning. 1 hour before the first meal of the day. 30 Capsule 1 12/05/2023 Active documented as of this encounter (statuses as of 12/21/2023) Active Problems Problem Noted Date Diagnosed Date [...] as of this encounter (statuses as of 12/21/2023) Resolved Problems Problem Noted Date Diagnosed Date Resolved Date Upper respiratory tract infection 09/13/2023 12/21/2023 Acute non-recurrent maxillary sinusitis 09/13/2023 12/21/2023 Diet controlled gestational diabetes mellitus (GDM) in third trimester 09/01/2019 11/19/2019 Overview: Reporting blood sugars to [facility]; last reported on 09/08/19 Diet controlled Hyperemesis gravidarum 04/19/201901/23 Overview: Single IUP noted No response to diclegis, reglan, compazine and phenergan, zofran, zofran ODT ER for fluids 04/02- also given zofran ER for fluids 04/17- also given solumedrol and discharged on prednisone taper starting at 40mg daily this has been only relief so far. @NOB 04/18/19- reviewed with M recommending ACOG guidelines from 09/06- May use [...] glucola would likely be invalid. Will await [facility] recommendations regarding screening H/O hyperemesis gravidarum 11/09/2017 1 08/30/2018 (infant) 11/09/201712/20 documented as of this encounter (statuses as of 12/21/2023) Immunizations Name Administration Dates Next Due COVID-19 [...] Answer Date Recorded PHQ Adult Total Score 0 12/18/2022 Hunger Vital Sign Answer Date Recorded Within the past 12 months, y ou worried that your food would run out before you got the money to buy more. Never true 09/13/19 24 Within the past 12 months, t he food you bought just didn't last and you didn't have money to get more. Never true 09/13/2023 [place] Depression Scale Answer Date Recorded [place] Depression Scale Score 3 04/28/2020 The thought [...] Sign Reading Time Taken Comments Blood Pressure 110/70 12/21/2023 8:33 AM EDT Pulse 70 12/21/2023 8:33 AM EDT Temperature 36.7 C (98 F) 12/21/2023 8:33 AM EDT Respiratory Rate - - Oxygen Saturation 98% 12/21/2023 8:33 AM EDT Inhaled Oxygen Concentration - - Weight 63.7 kg (140 lb 8 oz) 12/21/2023 8:33 AM EDT Height 161.3 cm (5' 3.5") 12/21/2023 8:33 AM EDT Body Mass Index 24.49 12/21/2023 8:33 AM EDT documented in this encounter Progress Notes * Moi Box MD - 12/21/2023 9:14 AM EDT Chief Complaint Patient presents with Physical-Exam Yearly physical. Pt would like to discuss what is next for her back issues. Pt has a growth on middle of chest, has appt with derm in May and wants to know if she needs seen sooner SUBJECTIVE: Afsaneh Woody is a 43 year old female with PMH as below who presents for physical. Chronic midand lower back pain better, but still there, will radiate down right leg. Has seen pain mgmt, and is scheduling with neurosurgery. No severe abdominal pain, vomiting, unintentional weight loss, and appetite is good. Did see dairy science teacher, felt back pain likely NOT from dairy science teacher issue. She did switch ocp 2/2 headaches. She had breast biopsy which was benign. Has a skin lesion mid chest wall for years, seeing derm this fall. No discharge or pain. Admits to some fatigue after viral illness past 1 month or so. Isdue for iron labs. Gerd controlled right now. Mood is good. Otherwise, Patient has no complaints, denies cp, sob, n/v/d, palpitations, edema, PND, urinary problems, bowel issues, no blood in stool orurine. Eating and drinking without issue, feels safe, denies abuse or feelings of depression, wearsseatbelts. No SI, HI Patient Active Problem List Diagnosis Code History of gestational diabetes mellitus (GDM) Z86.32 Irritable bowel syndrome K58.9 Mild mitral regurgitation I34.0 Mild tricuspid regurgitation I07.1 H/O section Z98.891 H/O myomectomy Z98.890 Incomplete right bundle branch block I45.10 Decreased iron stores R79.0 Upper respiratory tract infection J06.9 Wheezing R06.2 Acute non-recurrent maxillary sinusitis J01.00 Liver cyst K76.89 Gastroesophageal reflux disease without esophagitis K21.9 Current Outpatient Medications Medication Sig Dispense Refill Acetaminophen 500 MG Oral Tablet (Tylenol) Take 2 Tablets by mouth every 6 hours as needed. Fluticasone Propionate 50 MCG/ACT Nasal Suspension Administer 2 Sprays into each nostril in the morning. Vitron-C 65-125 MG Oral Tablet (Iron-Vitamin C) Take 1 Tablet by mouth in the morning. Ibuprofen 600 MG Oral Tablet (Motrin) Take 1 Tablet by mouth every 6 hours as needed. Aurovela FE 1/20 1-20 MG-MCG Oral Tablet Take 1 Tablet by mouth at bedtime. Albuterol Sulfate HFA 108 (90 Base) MCG/ACT Inhalation Aerosol Solution Inhale 2 Puffs by mouth every 6 hours as needed for Wheezing. 18 g 0 Baclofen 10 MG Oral Tablet (Lioresal) Take 1 Tablet by mouth in the morning and 1 Tablet before bedtime. As needed for spasm. 60 Tablet 0 Gabapentin 300 MG Oral Capsule (Neurontin) Take 1 Capsule by mouth in the morning and 1 Capsule before bedtime. 180 Capsule 0 Omeprazole 20 MG Oral Capsule Delayed Release (PriLOSEC) Take 1 Capsule by mouth in the morning. 1 hour before the first meal of the day. 30 Capsule 1 predniSONE 20 MG Oral Tablet (Deltasone) Take [...] Sneezing, watery itchy red eyes Versed [Midazolam] Health Maintenance Due Topic Date Due COVID-19 Vaccine ( season) 2023 ROS: CONSTITUTIONAL: No weakness and No fevers, sweats, or chills EYE: No recent significant change in vision, No eye pain, redness, discharge, and No diplopia EARS: No ear pain, No drainage, No tinnitus or vertigo, and No recent change in hearing PULMONARY: No cough, sputum, or hemoptysis, No wheezing, No rales, No shortness of breath, and No recent change in breathing CARDIOVASCULAR: No chest pain, No shortness of breath, No dyspnea on exertion, No orthopnea, No paroxysmal nocturnal dyspnea, No edema, No palpitations, and No syncope GASTROINTESTINAL: No change in bowel habits, No significant heartburn, No significant change in appetite, No nausea, vomiting, diarrhea, or constipation, No hematemesis, No blood in stools or black tarry stools, No abdominal bloating or early satiety, and No dysphagia ALL OTHER SYSTEMS NEGATIVE I reviewed social, PMH, PSH, and family history and updated where needed. Social History Socioeconomic History Marital status: Spouse name: Ulises, 46yo, FOB#1 Number of children: 1 Years of education: 16 Highest education level: Not on file Occupational History Occupation: [employer] Tobacco Use Smoking status: Never Smokeless tobacco: Never Vaping Use Vaping Use: Never used Substance and Sexual Activity Alcohol use: No Drug use: No Sexual activity: Yes Partners: Male Other Topics Concern Not on file Social History Narrative Not on file Social Determinants of Health Financial Resource Strain: Not on file Food Insecurity: No Food Insecurity (09/13/2023) Hunger Vital Sign Worried About Running Out of Food in the Last Year: Never true Ran Out of Food in the Last Year: Never true Transportation Needs: Not on file Physical Activity: Not on file Stress: Not on file Social Connections: Not on file Intimate Partner Violence: Not on file Housing Stability: Not on file Past Medical History: Diagnosis Date Endometriosis Fibroid [...] performed by Domenico Blunt DO at OR [facility] RETRIEVAL OF OOCYTE REMOVAL OF FIBROID UTERUS TUMOR 2010 Open myomectomy Family History Problem Relation Age of Onset Diabetes Mother prediabetes Osteoporosis Mother Other (epilepsy) Mother Coronary Artery disease Mother 78 Hypertension Father Stroke Father Heart disease Father a-fib Diabetes Father prediabetes Mental Disorder Sister Uterine cancer Grandmother (Maternal) No Known Problems Daughter Diabetes Aunt (Maternal) Breast Cancer Aunt (Maternal) Great Aunt Diabetes Aunt (Paternal) Stroke Aunt (Paternal) Diabetes Aunt (Paternal) Diabetes Aunt (Paternal) Colon cancer Uncle (Maternal) OBJECTIVE: PHYSICAL EXAM: BP 110/70 | Pulse 70 | Temp 36.7 C (98 F) (Tympanic) | Ht 1.613 m (5' 3.5") | Wt 63.7 kg (140 lb 8 oz) | SpO2 98% | BMI 24.49 kg/m | BSA 1.69 m General: alert, healthy, and no distress Head: Normocephalic, No masses, lesions, or abnormalities Eye Exam: conjunctiva are pink and non-injected, sclera clear Ears: External ears normal, Canals clear, TM's Normal Heart: regular rate & rhythm, no murmur, no gallops, PMI non-displaced, S-1 normal, and S-2 normal Lungs: normal respiratory rate and rhythm, lungs clear to auscultation Abdomen: abdomen soft, non-tender, normal bowel sounds, and no masses or organomegaly Extremities: no edema, no clubbing, no cyanosis Neuro Exam: alert with fluent speech, gait normal Skin: red skin cyst mid chest wall, small, no open wound Psych: normal affect, no flight of ideas or tangential thought, good eye contact, no pressured speech MRI t spine 12/12/23: No significant spinal canal stenosis or neural foraminal narrowing. 07/23/23 mri l spine: Degenerative disc disease most pronounced at L5-S1 where there is a broad right central disc protrusion and annular fissure, contacting the right S1 nerve root. No significant spinal canal or neuroforaminal narrowing at any lumbar level. ASSESSMENT: Z00.00 Physical exam, annual (primary encounter diagnosis) N85.8 Uterine cyst M54.9 Mid back pain M54.41,G89.29 Chronic right-sided low back pain with right-sided sciatica K76.89 Liver cyst Z71.84 Travel advice encounter Z13.220 Lipid screening K21.9 Gastroesophageal reflux disease without esophagitis E16.2 Low blood sugar R53.81,R53.83 Malaise and fatigue L72.9 Skin cyst R79.0 Decreased iron stores PLAN: Physical exam, annual (Primary) Discussed diet, seatbelts, and other hm Cont f/u dairy science teacher Cont breast screening with dairy science teacher Recheck lipids Uterine cyst Seeing dairy science teacher Mid back pain - SPINE SURGERY REFERRAL OP Persistent Cont baclofen, gabapentin Has med for flare Await neurosurgery, if they feel not from back disease on mri, may need to work up further Chronic right-sided low back pain with right-sided sciatica - SPINE SURGERY REFERRAL OP Liver cyst Follow with u/s Travel advice encounter Going to [place], needs hep a/b, had already so no need to re-vaccinate Discussed rabies vaccine briefly, deferred Lipid screening - LIPID PANEL WITH DIRECT LDL IF TG IS HIGH; Future; Expected date: 12/21/2023 Gastroesophageal reflux disease without esophagitis Cont prilosec Low blood sugar - HEMOGLOBIN A1C; Future; Expected date: 12/21/2023 - BASIC METABOLIC PANEL; Future; Expected date: 12/21/2023 Mentions h/o low sugar, will check labs Malaise and fatigue Await iron and labs Skin cyst Will see derm Decreased iron stores Await labs Follow-up: Return in about 6 months (around 06/22/2024), or if symptoms worsen or fail to improve. |Check-out note: Pls print labs Moi Box MD documented in this encounter Nursing Notes * Areli Luis MED ASSIST - 12/21/2023 8:37 AM EDT Chief Complaint Patient presents with Physical-Exam Yearly physical. Pt would like to discuss what is next for her back issues. Pt has a growth on middle of chest, has appt with derm in May and wants to know if she needs seen sooner documented in this encounter Plan of Treatment Upcoming Encounters Date Type Department Care Team (Late st Contact Info) Description 07/14/2024 12:40 PM EST Office Visit General Internal Medicine [facility] [address] [facility] [place] [place] [address] Moi Box MD 200 [facility] [place] [address] 12/11/2024 9:45 AM EDT Imaging Radiology [address] [place] [address] Scheduled Orders Name Type Priority Associated Diagnoses Orde r Schedule LIPID PANEL WITH DIRECT LDL IF TG IS HIGH Lab Routine Lipid screening Expected: 12/21/2023, Expires: 12/20/2024 HEMOGLOBIN A1C Lab Routine Low blood sugar Expected: 12/21/2023 (Approximate), Expires: 12/20/2024 BASIC METABOLIC PANEL Lab Routine Low blood sugar Expected: 12/21/2023 (Approximate), Expires: 12/20/2024 Scheduled Referrals Name Type Priority Associated Diagnoses Orde r Schedule SPINE SURGERY REFERRAL OP Referral Within 10 days (routine) Mid back pain Chronic right-sided low back pain with right-sided sciatica Ordered: 12/21/2023 Health Maintenance Due Date Last Done Comments COVID-19 Vaccine (2022- season) 2023 06/07/2023, 05/31/2022, 06/16/2021, Additional history exists Mammogram 12/12/2024 12/13/2023, 01/18, 01/12/2023, Additional history exists Depression Screening 12/20/2024 12/21/2023 Pap Smear 07/04/2026 07/04/2023, 06/20, 12/16/2018, Additional history exists Lipid Panel 01/11/2028 01/10/2023 Cervical Cancer Screening 07/04/2028 HPV/Co-Test 07/04/2028 07/04/2023 DTaP,Tdap,and Td Vaccines (4 - Td or [...] as of this encounter Visit Diagnoses Diagnosis Physical exam, annual- Primary Routine general medical examination at a health care facility Uterine cyst Other specified disorders of uterus, not elsewhere classified Mid back pain Backache, unspecified Chronic right-sided low back pain with right-sided sciatica Liver cyst Other specified disorders of liver Travel advice encounter Other specified counseling Lipid screening Screening for lipoid disorders Gastroesophageal reflux disease without esophagitis Esophageal reflux Low blood sugar Hypoglycemia, unspecified Malaise and fatigue Other malaise and fatigue Skin cyst Sebaceous cyst Decreased iron stores Other abnormal blood chemistry documented in this encounter Care Teams Ball Mill Operator Relationship Specialty Start Date End Date Moi Box MD [address] [place] [address] PCP - General Internal Medicine 11/09/17 documented as of this encounter
--- OUTSIDE RECORDS SUMMARY | 2024-05-09 18:50 | External Medical Summary | Summary of Care ---
Author Name Unknown Organization [facility] Address [address] [place] [address] Phone [phone] Care Team Providers Care Director Pharmacy Services Name Role Phone Moi Box MD Primary Care Provider + Reason for Visit * Reason Onset Date Comments Advice 01/09/2024 Medication Trans kailee Encounter Details Date Type Department Care Team (Late st Contact Info) Description 01/09/2024 Telephone General Internal Medicine [facility] [address] [place] [address] Moi Box MD 200 [facility] [place] [address] Advice (Medication Transfer) Allergies Active Allergy Reactions Criticality Noted Date [...] as of this encounter (statuses as of 01/09/2024) Medications Medication Sig Dispensed Refills Start Date [...] (PriLOSEC)Indicat ions:Gastroesopha geal reflux disease without esophagitis Take 1 Capsule by mouth in the morning. 1 hour before the first meal of the day. 30 Capsule 1 12/05/2023 Active Gabapentin 300 MG Oral Capsule (Neurontin) Take 1 Capsule by mouth in the morning and 1 Capsule before bedtime. 180 Capsule 12/24/2023 Active Baclofen 10 MG Oral Tablet (Lioresal)Indicat ions:Muscle spasm of back Take 1 Tablet by mouth 2 times a day as needed for Muscle spasms. As needed for spasm 60 Tablet 1 01/09/2024 Active Baclofen 10 MG Oral Tablet (Lioresal)Indicat ions:Muscle spasm of back Take 1 Tablet by mouth in the morning and 1 Tablet before bedtime. As needed for spasm. 60 Tablet 12/24/2023 Discontinue d(Refill) documented as of this encounter (statuses as of 01/09/2024) Active Problems Problem Noted Date Diagnosed Date [...] as of this encounter (statuses as of 01/09/2024) Resolved Problems Problem Noted Date Diagnosed Date Resolved Date Upper respiratory tract infection 09/13/2023 12/21/2023 Acute non-recurrent maxillary sinusitis 09/13/2023 12/21/2023 Diet controlled gestational diabetes mellitus (GDM) in third trimester 09/01/2019 11/19/2019 Overview: Reporting blood sugars to [facility]; last reported on 09/08/19 Diet controlled Hyperemesis gravidarum 04/19/201901/23 Overview: Single IUP noted No response to diclegis, reglan, compazine and phenergan, zofran, zofran ODT ER for fluids 04/02- also given zofran ER for fluids 04/17- also given solumedrol and discharged on prednisone taper starting at 40mg daily this has been only relief so far. @NOB 04/18/19- reviewed with [facility] recommending ACOG guidelines from 09/06- May [...] glucola would likely be invalid. Will await [facility] recommendations regarding screening H/O hyperemesis gravidarum 11/09/2017 1 08/30/2018 () 11/09/201712/20 documented as of this encounter (statuses as of 01/09/2024) Immunizations Name Administration Dates Next Due COVID-19 mRNA, LNP-s, No Pre serve, 2-Dose Series (Moderna) 12/22/2020,11/24/2020 COVID-19 mRNA, LNP-s, No Pre serve, 2-Dose Series ([employer]) 06/16/2021 COVID-19, SUBUNIT, rS-NANOPARTICLE+m1 ADJUVANT, 23-24, PF, [...] money to get more. Never true 09/13/2023 [place] Depression Scale Answer Date Recorded [place] Depression Scale Score 3 04/28/2020 The thought [...] encounter Miscellaneous Notes * Telephone Encounter - Areli Luis MED ASSIST - 01/09/2024 3:43 PM EDT Patient aware and verbalized understanding * Telephone Encounter - Moi Box MD - 01/09/2024 3:36 PM EDT Med sent, let me know when needs other medicine * Telephone Encounter - Martha Jalloh LPN - 01/09/2024 10:31 AM EDT Please advise if willing to take over these meds. Baclofen pended if agreeable * Telephone Encounter - Yvrose Valencia OSA - 01/09/2024 10:04 AM EDT Patient called to inform Dr. Box that she would like to have two medication transferred on to you. The Gabapentin 300 mg and the Baclofen 10 mg. Patient stated she needs a refill on the Baclofen 10 mg by this SundayJanuary 11 to have her before she travels out of the [place]. Please contact patient mobile number as soon as possible on medication transfer and when medication Baclofen 10mg has been refilled. documented in this encounter Plan of Treatment Upcoming Encounters Date Type Department Care Team (Late st Contact Info) Description 03/26/2024 9:00 AM EDT Telemedicine [facility] [address] [place] [address] Whitney Vasquez PA-C [address] [place] [address] 07/14/2024 12:40 PM EST Office Visit General Internal Medicine [facility] [address] [facility] [place] [address] Moi Box MD [address] [facility] [place] [address] 12/11/2024 9:45 AM EDT Imaging Radiology [facility] [address] [place] [address] Health Maintenance Due Date Last Done Comments [...] back documented in this encounter Care Teams Director Pharmacy Services Relationship Specialty Start Date End Date Moi Box MD [address] [facility] [place] [address] PCP - General Internal Medicine 11/09/17 documented as of this encounter
--- OUTSIDE RECORDS SUMMARY | 2024-05-09 18:50 | External Medical Summary | Summary of Care ---
Author Name Unknown Organization [facility] Address [address] [place] [address] Phone [phone] Care Team Providers Care Robotic Welding Operator Name Role Phone Moi Box MD Primary Care Provider + Reason for Referral * Evaluate & Treat - Unlimited Visits (Within 10 days (routine)) - Pending Review Specialty Diagnoses / Procedures Referred By Dalia t Referred To Contact Hematology/Oncology / Hematology Oncology Diagnoses Abnormal result of iron profile testing Moi Box MD [address] [place] [address] [place] [address] Referral ID Status Reason Start Date Expiration Date Visits Requested Visits Authorized [id number] Pending Review Specialty Services Required 01/17/[phone] Question Answer Referral Priority Within 10 days (routine) Where should this appointment be scheduled? [facility] Reason for Referral Elevated or Low Iron Reason for Visit * Reason Onset Date Comments Test Results 01/04/2024 Encounter Details Date Type Department Care Team (Late st Contact Info) Description 01/04/2024 Telephone General Internal Medicine [employer] [address] [place] [address] Moi Box MD 200 [facility] [place] [address] Test Results Allergies Active Allergy Reactions Criticality Noted Date [...] as of this encounter (statuses as of 01/18/2024) Medications Medication Sig Dispensed Refills Start Date [...] as of this encounter (statuses as of 01/18/2024) Active Problems Problem Noted Date Diagnosed Date [...] as of this encounter (statuses as of 01/18/2024) Resolved Problems Problem Noted Date Diagnosed Date Resolved Date Upper respiratory tract infection 09/13/2023 12/21/2023 Acute non-recurrent maxillary sinusitis 09/13/2023 12/21/2023 Diet controlled gestational diabetes mellitus (GDM) in third trimester 09/01/2019 11/19/2019 Overview: Reporting blood sugars to [facility]; last reported on 09/08/19 Diet controlled Hyperemesis gravidarum 04/19/201901/23 Overview: Single IUP noted No response to diclegis, reglan, compazine and phenergan, zofran, zofran ODT ER for fluids 04/02- also given zofran ER for fluids 04/17- also given solumedrol and discharged on prednisone taper starting at 40mg daily this has been only relief so far. @NOB 04/18/19- reviewed with [facility] recommending ACOG guidelines from 09/06- May [...] glucola would likely be invalid. Will await [facility] recommendations regarding screening H/O hyperemesis gravidarum 11/09/2017 1 08/30/2018 () 11/09/201712/20 documented as of this encounter (statuses as of 01/18/2024) Immunizations Name Administration Dates Next Due COVID-19 mRNA, LNP-s, No Pre serve, 2-Dose Series (Moderna) 12/22/2020,11/24/2020 COVID-19 mRNA, LNP-s, No Pre serve, 2-Dose Series ([employer]) 06/16/2021 COVID-19, SUBUNIT, rS-NANOPARTICLE+m1 ADJUVANT, 23-24, PF, [...] money to get more. Never true 09/13/2023 [place] Depression Scale Answer Date Recorded [place] Depression Scale Score 3 04/28/2020 The thought [...] Miscellaneous Notes * Telephone Encounter - Moi Box MD - 01/17/2024 4:27 PM EDT See myg * Telephone Encounter - Yousif Power RN - 01/09/2024 1:41 PM EDT Images from the original note were not included. Message sent via [employer]. Provider to address: n/a Reason for Call: Test Results Contact: Kaylee Gastelum Contact Type: Test Results Provider In-Basket: Yes Outcome: See above Face to face time spent with Patient (minutes): 0 Total Time including non face to face (minutes): 10 Yousif Power RN BSN [facility] Primary Care Nurse Coordinator [facility] (Helping out) * Telephone Encounter - Lisa Tay LPN - 01/04/2024 11:37 AM EDT ----- Message from Moi Box MD sent at 01/03/2024 12:10 PM EDT ----- Got labs from [facility] 1 has pre-diabetes. Will continue to trend this, would repeat in 6 months, may need labs mailed. Could be from prednisone use recently which raises sugar. Would try to limit sweets, breads, excessivesugary foods. 2. Cholesterol, kidney are good, no anemia ferritin still low end of normal despite being on iron. Would return fobt when she can to make sure no gi loss of blood. Also would recommend seeing heme tosee if further work up needed, can refer if she agrees documented in this encounter Plan of Treatment Upcoming Encounters Date Type Department Care Team (Late st Contact Info) Description 03/26/2024 9:00 AM EDT Telemedicine Interventional Pain Center, [facility] [address] [address] Whitney Vasquez PA-C [address] [address] 07/14/2024 12:40 PM EST Office Visit General Internal Medicine [facility] 200 [facility] [place] [address] Moi Box MD 200 [facility] [place] [address] 12/11/2024 9:45 AM EDT Imaging Radiology [facility] [address] [place] [address] Scheduled Orders Name Type Priority Associated Diagnoses Orde r Schedule FECAL OCCULT BLOOD, EIA Lab Routine Abnormal result of iron profile testing Expected: 01/18/2024 (Approximate), Expires: 01/17/2025 Scheduled Referrals Name Type Priority Associated Diagnoses Orde r Schedule HEMATOLOGY/ONCOLOGY REFERRAL OP Referral Within 10 days (routine) Abnormal result of iron profile testing Ordered: 01/17/2024 Health Maintenance Due Date Last Done Comments [...] of this encounter Visit Diagnoses Diagnosis Abnormal result of iron profile testing- Primary documented in this encounter Care Teams Robotic Welding Operator Relationship Specialty Start Date End Date Moi Box MD 200 [facility] [place] [address] PCP - General Internal Medicine 11/09/17 documented as of this encounter
--- OUTSIDE RECORDS SUMMARY | 2024-05-09 18:50 | External Medical Summary | Summary of Care ---
Author Name Unknown Organization [facility] Address [address] [place] [address] Phone [phone] Care Team Providers Care Senior Sales Operations Analyst Name Role Phone Moi Bxo MD Primary Care Provider + Reason for Visit * Reason Onset Date Comments Films 01/23/2024 Encounter Details Date Type Department Care Team (Late st Contact Info) Description 01/23/2024 Telephone Radiology [employer] [address] [place] [address] Moi Box MD [address] [place], [place] [id number] Films Allergies Active Allergy Reactions Criticality Noted Date [...] as of this encounter (statuses as of 01/23/2024) Medications Medication Sig Dispensed Refills Start Date [...] 12/24/2023 Active Baclofen 10 MG Oral Tablet (Lioresal)Indicati ons:Muscle spasm of back Take 1 Tablet by mouth 2 times a day as needed for Muscle spasms. As needed for spasm 60 Tablet 1 01/09/2024 Active documented as of this encounter (statuses as of 01/23/2024) Active Problems Problem Noted Date Diagnosed Date [...] as of this encounter (statuses as of 01/23/2024) Resolved Problems Problem Noted Date Diagnosed Date Resolved Date Upper respiratory tract infection 09/13/2023 12/21/2023 Acute non-recurrent maxillary sinusitis 09/13/2023 12/21/2023 Diet controlled gestational diabetes mellitus (GDM) in third trimester 09/01/2019 11/19/2019 Overview: Reporting blood sugars to [facility]; last reported on 09/08/19 Diet controlled Hyperemesis gravidarum 04/19/201901/23 Overview: Single IUP noted No response to diclegis, reglan, compazine and phenergan, zofran, zofran ODT ER for fluids 04/02- also given zofran ER for fluids 04/17- also given solumedrol and discharged on prednisone taper starting at 40mg daily this has been only relief so far. @NOB 04/18/19- reviewed with [facility] recommending ACOG guidelines from 09/06- May [...] glucola would likely be invalid. Will await [facility] recommendations regarding screening H/O hyperemesis gravidarum 11/09/2017 1 08/30/2018 () 11/09/201712/20 documented as of this encounter (statuses as of 01/23/2024) Immunizations Name Administration Dates Next Due COVID-19 [...] money to get more. Never true 09/13/2023 [place] Depression Scale Answer Date Recorded [place] Depression Scale Score 3 04/28/2020 The thought [...] encounter Miscellaneous Notes * Telephone Encounter - Maryanne Melvin, System Support - 01/23/2024 9:47 AM EDT [facility] Neurosurg requesting All Spine 06/08/23 to 12/12/23 images be pushed to their system. [place] Authorization to Release on file. Imaging pushed to [facility] external PACs connection Associated report(s) not needed. documented in this encounter Plan of Treatment Upcoming Encounters Date Type Department Care Team (Late st Contact Info) Description 03/26/2024 9:00 AM EDT Telemedicine Interventional Pain Center, [facility] [address] [address] Whitney Vasquez PA-C [address] [address] 07/14/2024 12:40 PM EST Office Visit General Internal Medicine [facility] 200 [facility] [address] Moi Box MD [address] [place] [address] 12/11/2024 9:45 AM EDT Imaging Radiology [facility] [address] [place] [address] Health Maintenance Due Date Last Done Comments [...] filedocumented as of this encounter Care Teams Senior Sales Operations Analyst Relationship Specialty Start Date End Date Moi Box MD [address] [place] [address] PCP - General Internal Medicine 11/09/17 documented as of this encounter
--- OUTSIDE RECORDS SUMMARY | 2024-05-09 18:50 | External Medical Summary | Summary of Care ---
Author Name Unknown Organization [facility] Address [address] [place] [address] Phone [phone] Care Team Providers Care Checker Dump Grounds Name Role Phone Moi Box MD Primary Care Provider + Reason for Visit * Reason Onset Date Comments Appointment 11/28/2023 Recheck for back pain Encounter Details Date Type Department Care Team (Late st Contact Info) Description 11/28/2023 Telephone General Internal Medicine [facility] 200 [place] [address] Moi Box MD 200 [facility] [place] [address] Appointment (Recheck for back pain) Allergies Active Allergy Reactions Criticality Noted Date [...] as of this encounter (statuses as of 02/27/2024) Medications Medication Sig Dispensed Refills Start Date [...] 09/13/2023 Active predniSONE 20 MG Oral Tablet (Deltasone)Indic ations:Lumbar radicular pain,Muscle spasm of back Take 3 tabs for 3 days, 2 tabs for 3 days, 1 tab for 3 days, 1/2 tab for 3 days 20 Tablet 11/21/2023 Active Additional Information Patient not taking.Reported on 12/05/2023 Loratadine 10 MG Oral Tablet (Claritin)Indica tions:Seasonal allergies Take 1 Tablet by mouth in the morning. 30 Tablet 11 12/18/2022 4 Discontinue d(Medicatio n List Clean Up) predniSONE 20 MG Oral Tablet (Deltasone) Take 1 Tablet by mouth in the morning for 5 days. 5 Tablet 09/13/2023 4 Discontinue d(Patient preference/ discontinua tion) Baclofen 10 MG Oral Tablet (Lioresal)Indica tions:Muscle spasm of back Take 1 Tablet by mouth in the morning and 1 Tablet before bedtime. As needed for spasm. 60 Tablet 11/13/2023 4 Discontinue d(Refill) Gabapentin 300 MG Oral Capsule (Neurontin) Take 1 Capsule by mouth in the morning and 1 Capsule before bedtime. 180 Capsule 11/26/2023 4 Discontinue d(Refill) documented as of this encounter (statuses as of 02/27/2024) Active Problems Problem Noted Date Diagnosed Date [...] as of this encounter (statuses as of 02/27/2024) Resolved Problems Problem Noted Date Diagnosed Date [...] pt has lost 4.86% of body weight. 8/30-Rx given for methylprednisolone 40mg QD x 3 [...] as of this encounter (statuses as of 02/27/2024) Immunizations Name Administration Dates Next Due COVID-19 [...] money to get more. Never true 09/13/2023 [place] Depression Scale Answer Date Recorded [place] Depression Scale Score 3 04/28/2020 The thought [...] encounter Miscellaneous Notes * Telephone Encounter - Stefani Ayala OSA - 12/03/2023 10:53 AM EDT Date: 12/05/2023 Status: Sonya Time: 6:00 PM Length: 20 Visit Type: [facility] [[id number]] Reg Status: Verified Copay: $0.00 Provider: Moi Box MD Department: GEN INT MED [facility] POD3 Additional Resources Requested: * Telephone Encounter - Nikhil Dai OSA - 11/28/2023 9:32 AM EDT No Appointments Available Patient declined appointments?: Yes What Visit Type is needed? Acute If Acute Visit Type is needed, were surrounding clinics offered to patient (Yes/No)? Yes Was patient offered appointments with other available providers (Yes/No)? Yes See Call Details? (Yes or No): Yes documented in this encounter Plan of Treatment Upcoming Encounters Date Type Department Care Team (Late st Contact Info) Description 03/14/2024 1:00 PM EDT Office Visit Hematology/Oncology [facility] [place] 200 [facility] [place] [phone] Janeth Luis CRNP [address] [place] [address] [place] [address] 03/26/2024 9:00 AM EDT Telemedicine Interventional Pain Center, [facility] 132 [facility] [place] [address] Whitney Vasquez PA-C [address] [facility] [place] [address] 07/14/2024 12:40 PM EST Office Visit General Internal Medicine [facility] 200 [facility] [place] [address] Moi Box MD 200 [facility] [place] [address] 12/11/2024 9:45 AM EDT Imaging Radiology [facility] 132 [facility] [place] [address] Health Maintenance Due Date Last Done Comments [...] filedocumented as of this encounter Care Teams Checker Dump Grounds Relationship Specialty Start Date End Date Moi Box MD 200 [facility] [place] [place] [address] PCP - General Internal Medicine 11/09/17 documented as of this encounter
--- OUTSIDE RECORDS SUMMARY | 2024-05-09 18:50 | External Medical Summary | Continuity of Care Document ---
Author Name Unknown Organization [facility] [address] [place] [id number] Care Team Providers Care Audit Associate Name Role Phone Isauro Moi Pierce Primary Care Physician [phone] [id number] Date[facility]s): 01/01/24 - 01/01/24 [facility] 1200 [facility] [address], [address] [place] [address] [phone] Encounter Diagnosis Body mass index [BMI] 24.0-24.9, adult(Discharge Diagnosis) - 01/01/24 Lumbar spondylosis(Discharge Diagnosis) - 01/01/24 Discharge Disposition: Home or Self Care Attending Physician: MD Court, Alex Shepard Allergies, Adverse Reactions, Alerts Substance Criticality Severity Reaction Reaction Severity Status morphine Unable to assess criticality Severe Extrapyramidal symptom Active propofol Unable to assess criticality Severe Extrapyramidal symptom Active peanuts Unable to assess criticality Severe Anaphylaxis Active fentaNYL Unable to assess criticality Severe Extrapyramidal symptom Active Medications Colace 100 mg oral capsule Start: 10/17/19 11:35:00 AM EST, 1 cap, PO, bid Start Date: 10/17/19 Status: Ordered ferrous sulfate Start: 10/13/19 9:36:00 AM EST, PO, Daily, Note to Pharmacy: qPM Start Date: 10/13/19 Status: Ordered ibuprofen 600 mg oral tablet Start: 10/17/19 11:36:00 AM EST, 1 tab, PO, qid, Disp# 30 tab, Refills: 3, PRN: as needed for pain, Pharmacy: [facility] [place] Start Date: 10/17/19 Status: Ordered lanolin topical Start: 10/17/19 11:35:00 AM EST, 1 appl, topical, As indicated, PRN: Dry Skin Start Date: 10/17/19 Status: Ordered Multivitamins with Vitamin B Complex, Vitamin C, Minerals and L- Methylfolate oral capsule Start: 09/10/19 11:13:00 AM EST Start Date: 09/10/19 Status: Ordered simethicone 80 mg oral tablet, chewable Start: 10/17/19 11:35:00 AM EST, 1 tab, PO, q8h, PRN: Abdominal bloating - gas pain Start Date: 10/17/19 Status: Ordered Toradol 10 mg oral tablet Start: 10/17/19 12:18:00 PM EST, 1 tab, PO, q6h, Disp# 5 tab, Do not exceed 40 mg/day. Do not take along with ibuprofen., PRN: as needed for pain, Pharmacy: [facility] [place] Start Date: 10/17/19 Status: Ordered Tylenol 500 mg oral tablet Start: 10/17/19 11:35:00 AM EST, 2 tab, PO, q6h, PRN: Fever/Mild Pain Start Date: 10/17/19 Status: Ordered Mental Status 01/01/24 Barriers to Learning one year None evide nt Mandatory Health Literacy Documentation Yes Health Literacy Communication Barriers N ever Primary Language Polish Problem List Condition Confirmation Course Effective Dates Status H ealth Status Informant History of section Confirmed Active with history of uterine myomectomy Confirmed Active History of anesthesia complications Confirmed Active Hx gestational diabetes Confirmed Active Diagnosis Diagnosis Type Effective Dates Health Status Clinical Service Informant Body mass index [BMI] 24.0-24.9, adult Discharge Diagnosis 01/01/24 Non-Specified Lumbar spondylosis Discharge Diagnosis 01/01/24 Vital Signs Most recent to oldest [Reference Range]: 1 Height 160.02 cm (01/01/24 12:03 PM) Patient Weight 62.9 kg (01/01/24 12:03 PM) Body Mass Index 24.56 kg/m2 (01/01/24 12:03 PM) Heart Rate 62 bpm (01/01/24 12:03 PM) Blood Pressure 123/85mmHg (01/01/24 12:03 PM) BP Location # 1 Right Arm (01/01/24 12:03 PM) Social History Social History Type Response Smoking Status Never smoked cigaret nithin Sex Female Patient Care team information Care Team Personnel Name: MD Isauro, Moi Pierce Position: Referring DIRECT Member Role: Primary Care Provider Address: Address: [address] [place] [address], [place] [address] [place] Care Team Related Persons Name: EVANGELISTA BUSTAMANTE Address: home [address] [facility], [phone] Name: VIGNESH BUSTAMANTE Address: home [address] [facility], [phone]
--- OUTSIDE RECORDS SUMMARY | 2024-05-09 18:50 | External Medical Summary | Summary of Care ---
Author Name Unknown Organization [facility] Address [address] [place] [address] Phone [phone] Care Team Providers Care Nuclear Plant Equipment Operator Name Role Phone Moi Amezquita MD Primary Care Provider + Reason for Visit * Reason Comments eRx-Medication Refill Encounter Details Date Type Department Care Team (Late st Contact Info) Description 02/04/2024 Refill General Internal Medicine [facility] 200 [facility] [place] [phone] Moi Amezquita MD [address] [place], [place] [phone] Encounter for long-term (current) use of medications*; Gastroesophageal reflux disease without esophagitis Allergies Active Allergy Reactions Criticality Noted Date [...] as of this encounter (statuses as of 02/04/2024) Medications Medication Sig Dispensed Refills Start Date [...] 12/24/2023 Active Baclofen 10 MG Oral Tablet (Lioresal)Indica tions:Muscle spasm of back Take 1 Tablet by mouth 2 times a day as needed for Muscle spasms. As needed for spasm 60 Tablet 1 01/09/2024 Active Omeprazole 20 MG Oral Capsule Delayed Release (PriLOSEC)Indica tions:Gastroesop hageal reflux disease without esophagitis TAKE 1 CAPSULE BY MOUTH IN THE MORNING. 1 HOUR BEFORE THE FIRST MEAL OF THE DAY. 90 Capsule 1 02/04/2024 Active Omeprazole 20 MG Oral Capsule Delayed Release (PriLOSEC)Indica tions:Gastroesop hageal reflux disease without esophagitis Take 1 Capsule by mouth in the morning. 1 hour before the first meal of the day. 30 Capsule 1 12/05/2023 02/04/20 24 Discontinued documented as of this encounter (statuses as of 02/04/2024) Active Problems Problem Noted Date Diagnosed Date [...] as of this encounter (statuses as of 02/04/2024) Resolved Problems Problem Noted Date Diagnosed Date Resolved Date Upper respiratory tract infection 09/13/2023 12/21/2023 Acute non-recurrent maxillary sinusitis 09/13/2023 12/21/2023 Diet controlled gestational diabetes mellitus (GDM) in third trimester 09/01/2019 11/19/2019 Overview: Reporting blood sugars to [facility]; last reported on 09/08/19 Diet controlled Hyperemesis gravidarum 04/19/201901/23 Overview: Single IUP noted No response to diclegis, reglan, compazine and phenergan, zofran, zofran ODT ER for fluids 04/02- also given zofran ER for fluids 04/17- also given solumedrol and discharged on prednisone taper starting at 40mg daily this has been only relief so far. @NOB 04/18/19- reviewed with [facility] recommending ACOG guidelines from 09/06- May [...] glucola would likely be invalid. Will await [facility] recommendations regarding screening H/O hyperemesis gravidarum 11/09/2017 1 08/30/2018 (infant) 11/09/201712/20 documented as of this encounter (statuses as of 02/04/2024) Immunizations Name Administration Dates Next Due COVID-19 [...] money to get more. Never true 09/13/2023 [place] Depression Scale Answer Date Recorded [place] Depression Scale Score 3 04/28/2020 The thought [...] encounter Miscellaneous Notes * Telephone Encounter - Yosi Loaiza [facility] - 02/04/2024 4:18 PM EDTSigned Prescriptions: Disp Refills Omeprazole 20 MG Oral Capsule Delayed Rele*90 Cap*1 Sig: TAKE 1 CAPSULE BY MOUTH IN THE MORNING. 1 HOUR BEFORE THE FIRST MEAL OF THE DAY.Authorizing Provider: MOI AMEZQUITA User: YOSI PRINCE documented in this encounter Plan of Treatment Upcoming Encounters Date Type Department Care Team (Late st Contact Info) Description 03/26/2024 9:00 AM EDT Telemedicine Interventional Pain Center, [facility] [address] [place] [address] Whitney Vasquez PA-C [address] [place] [address] 07/14/2024 12:40 PM EST Office Visit General Internal Medicine [facility] [place] [address] Moi Amezquita MD 200 [facility] [place] [address] 12/11/2024 9:45 AM EDT Imaging Radiology [facility] 132 [facility] [place] [address] Scheduled Orders Name Type Priority Associated Diagnoses Orde r Schedule MAGNESIUM Lab Routine Encounter for long-term (current) use of medications Expected: 02/04/2024 (Approximate), Expires: 02/03/2025 VITAMIN B12 Lab Routine Encounter for long-term (current) use of medications Expected: 02/04/2024 (Approximate), Expires: 02/03/2025 Health Maintenance Due Date Last Done Comments [...] as of this encounter Visit Diagnoses Diagnosis Encounter for long-term (current) use of medications- Primary Encounter for long-term (current) use of other medications Gastroesophageal reflux disease without esophagitis Esophageal reflux documented in this encounter Care Teams Nuclear Plant Equipment Operator Relationship Specialty Start Date End Date Moi Amezquita MD [address] [place] [address] PCP - General Internal Medicine 11/09/17 documented as of this encounter
--- OUTSIDE RECORDS SUMMARY | 2024-05-09 18:50 | External Medical Summary | Summary of Care ---
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 Name Role Phone Moi Amezquita MD Primary Care Provider + Encounter Details Date Type Department Care Team (Late st Contact Info) Description 12/28/2023 Orders Only General Internal Medicine [facility] [address] [facility] [place] [id number] Moi Amezquita MD [address] [place] [address] Elevated glucose*; Lipid screening; Low blood sugar; Abnormal iron [...] as of this encounter (statuses as of 01/03/2024) Medications Medication Sig Dispensed Refills Start Date [...] as of this encounter (statuses as of 01/03/2024) Active Problems Problem Noted Date Diagnosed Date [...] as of this encounter (statuses as of 01/03/2024) Resolved Problems Problem Noted Date Diagnosed Date Resolved Date Upper respiratory tract infection 09/13/2023 12/21/2023 Acute non-recurrent maxillary sinusitis 09/13/2023 12/21/2023 Diet controlled gestational diabetes mellitus (GDM) in third trimester 09/01/2019 11/19/2019 Overview: Reporting blood sugars to [facility]; last reported on 09/08/19 Diet controlled Hyperemesis gravidarum 04/19/201901/23 Overview: Single IUP noted No response to diclegis, reglan, compazine and phenergan, zofran, zofran ODT ER for fluids 04/02- also given zofran ER for fluids 04/17- also given solumedrol and discharged on prednisone taper starting at 40mg daily this has been only relief so far. @NOB 04/18/19- reviewed with [facility] recommending ACOG guidelines from 09/06- May use [...] to decrease by 2mg q 3 days 9/20/19- taking 32mg QD, weight stable, will continue [...] glucola would likely be invalid. Will await [facility] recommendations regarding screening H/O hyperemesis gravidarum 11/09/2017 1 08/30/2018 () 11/09/201712/20 documented as of this encounter (statuses as of 01/03/2024) Immunizations Name Administration Dates Next Due COVID-19 [...] money to get more. Never true 09/13/2023 [place] Depression Scale Answer Date Recorded [place] Depression Scale Score 3 04/28/2020 The thought [...] Miscellaneous Notes * Addendum Note - Moi Amezquita MD - 01/03/2024 12:10 PM EDTAddended by: MOI AMEZQUITA on: 01/03/2024 12:10 PM Modules accepted: Orders documented in this encounter Plan of Treatment Upcoming Encounters Date Type Department Care Team (Late st Contact Info) Description 03/26/2024 9:00 AM EDT Telemedicine [facility] [address] [facility] [place] [address] Whitney Vasquez PA-C [address] [place] [address] 07/14/2024 12:40 PM EST Office Visit General Internal Medicine [facility] [place] [address] [place] [address] Moi Amezquita MD [address] [facility] [place] [address] 12/11/2024 9:45 AM EDT Imaging Radiology [facility] [address] [place] [address] Scheduled Orders Name Type Priority Associated Diagnoses Orde r Schedule HEMOGLOBIN A1C Lab Routine Elevated glucose Expected: 07/05/2024 (Approximate), Expires: 01/02/2025 Health Maintenance Due Date Last Done Comments [...] Venous blood specimen / Unknown 12/26/2023 Moi Amezquita MD LAB BLOOD ORDERA BLES Performing Organization Address [facility] Co de Phone Number OUTSIDE LAB (SEE SCANNED REPORT) * IRON SCREEN, INCLUDING TIBC (12/26/2023) Blood Venous blood specimen / Unknown 12/26/2023 Moi Amezquita MD LAB BLOOD ORDERA BLES Performing Organization Address [facility] Co de Phone Number OUTSIDE LAB (SEE SCANNED REPORT) * CBC WITH WBC DIFFERENTIAL (12/26/2023) HGB 11.8 11.7 - 15.5 G/DL OUTSIDE LAB (SEE SCANNED REPORT) Blood Venous blood specimen / Unknown 12/26/2023 Moi Amezquita MD LAB BLOOD ORDERA BLES Performing Organization Address [facility] Co de Phone Number OUTSIDE LAB (SEE SCANNED REPORT) * (ABNORMAL) HEMOGLOBIN A1C (12/26/2023) HEMOGLOBIN, [id number] LAB 5.8(H) <5.7 % OUTSIDE LAB (SEE SCANNED REPORT) Blood Capillary blood specimen / Unknown 12/26/2023 Moi Amezquita MD LAB BLOOD ORDERA BLES OUTSIDE LAB (SEE SCANNED REPORT) * BASIC [...] from central line / Unknown 12/26/2023 Moi Amezquita MD LAB BLOOD ORDERA BLES Performing Organization Address [facility] Co de Phone Number OUTSIDE LAB (SEE [...] Capillary blood specimen / Unknown 12/26/2023 Moi Amezquita MD LAB BLOOD ORDERA BLES Performing Organization Address City/[facility]/ZIP Co de Phone Number OUTSIDE LAB (SEE SCANNED REPORT) documented in this encounter Visit Diagnoses Diagnosis Elevated glucose- Primary Other abnormal glucose Lipid screening Screening for lipoid disorders Low blood sugar Hypoglycemia, unspecified Abnormal iron saturation Other abnormal blood chemistry documented in this encounter Care Teams Heat And Frost Insulator Helper Relationship Specialty Start Date End Date Moi Amezquita MD [address] [place] [address] PCP - General Internal Medicine 11/09/17 documented as of this encounter
--- OUTSIDE RECORDS SUMMARY | 2024-05-09 18:50 | External Medical Summary | Continuity of Care Document ---
Author Name Unknown Organization [facility] Barber KILPATRICK Address [address] [place] [address] [address] [place] [id number] Care Team Providers Care Look Out Tower Fire Watcher Name Role Phone Isauro Moi Stan Primary Care Physician [phone] [id number] Date(s): 03/04/24 - 03/04/24 [place] [address] [address]UBEN BRUSH [facility] Ob[facility]etrics and Gynecology [address] [place] [address], [address] [place] [address] [phone] Encounter Diagnosis Abnormal uterine bleeding due to endometrial polyp(Discharge Diagnosis) - 03/04/24 Endometriosis(Discharge Diagnosis) - 03/04/24 Discharge Disposition: Home or Self Care Attending Physician: MD Marcial Linda J Referring Physician: DO Perez Kaitlyn B Allergies, Adverse Reactions, Alerts Substance Criticality Severity Reaction Reaction Severity Status morphine Unable to assess criticality Severe Extrapyramidal symptom Active propofol Unable to assess criticality Severe Extrapyramidal symptom Active peanuts Unable to assess criticality Severe Anaphylaxis Active fentaNYL Unable to assess criticality Severe Extrapyramidal symptom Active Assessment and Plan Extracted from: Title: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 possible endometriosis and known endometrial polyp who presents to the clinic for further evaluation and management of AUB-P and pelvic pain. #AUB #Endometrial polyp - Plan for hysteroscopy with polypectomy with Mirena IUD insertion - Recommend continuing mini pill prior to procedure given significant improvement in bleeding. - Discussed the option for Mirena IUD insertion given the improvement in bleeding with the progestin only pill, an IUD can provide a longer term solution for endometrial suppression as well as the prevention of growth of new polyps. - Discussed that patient can continue to take the mini pill with the IUD if she is experiencing undesirable spotting or bleeding with the IUD. Also reviewed that IUD can be removed at any time if patient desires. - Patient desires insertion of Mirena IUD at time of polypectomy. #Possible Endometriosis - Plan for diagnostic laparoscopy with excision of endometriosis - Discussed that with patient's history of reaction to anesthesia addressing multiple issues during one procedure will potentially decrease the number of surgeries she has to have and times she is exposed to anesthesia. Patient agreed that doing the laparoscopy at the time of hysteroscopy was the best option. - Discussed that the Mirena IUD and mini pill can also provide improvement in pain due to endometriosis. - Recommend continuing with antiinflammatories such as ibuprofen for management of pelvic pain. #Chronic low back pain - Less likely due to small fibroids or polyp noted on recent imaging. Possibly related to endometriosis. - Recommend laparoscopy with removal of endometriosis. - Recommend patient continue with current regiment of massage, chiropractor, antiinflammatory medications, gabapentin, baclofen as prescribed by other providers. #History of EPS/anesthesia reaction - Patient to have anesthesia evaluation prior to surgery. Patient seen and discussed with attending, Dr. Yovana Marcial. Virginie Goodman MD PGY1 Discussed with theResidentphysician and agree with the findings and plan as documented in the note. I saw and evaluated the patient and was physically present for hayden portions of the service and participated in the management of the patient. A total of 35minutes was spent with the patient with greater than 50% of the time spent in [id number] counseling [id number] of chart review prior to the visit. Yovana Marcial MD Medications baclofen Start: 03/04/24 11:27:00 AM EDT, 10 mg =, PO, 2x daily Start Date: 03/04/24 Status: Ordered gabapentin Start: 03/04/24 11:27:00 AM EDT, 300 mg =, PO, Daily Start Date: 03/04/24 Status: Ordered ibuprofen 600 mg oral tablet Start: 10/17/19 11:36:00 AM EST, 1 tab, PO, qid, Disp# 30 tab, Refills: 3, PRN: as needed for pain, Pharmacy: [facility] Start Date: 10/17/19 Status: Ordered omeprazole Start: 03/04/24 11:29:00 AM EDT, 20 mg =, PO, Daily Start Date: 03/04/24 Status: Ordered Tums Start: 03/04/24 11:29:00 AM EDT Start Date: 03/04/24 Status: Ordered Tylenol 500 mg oral tablet Start: 10/17/19 11:35:00 AM EST, 2 tab, PO, q6h, PRN: Fever/Mild Pain Start Date: 10/17/19 Status: Ordered unknown medication Start: 03/04/24 11:27:00 AM EDT, OTC iron Start Date: 03/04/24 Status: Ordered unknown medication Start: 03/04/24 11:28:00 AM EDT, norethindone Start Date: 03/04/24 Status: Ordered Mental Status 03/04/24 Barriers to Learning one year None evide nt Mandatory Health Literacy Documentation Yes Health Literacy Communication Barriers N ever Primary Language Tuvaluan Problem List Condition Confirmation Course Effective Dates [...] Effective Dates Health Status Clinical Service Informant Abnormal uterine bleeding due to endometrial polyp Discharge Diagnosis 03/04/24 Non-Specified Endometriosis Discharge Diagnosis 03/04/24 Non-Specified Procedures Procedure Date Related Diagnosis Body Site Status delivery [facility] ed Tubal ligation 2019 Completed Procedure 2018 Completed delivery 2014 [facility] ed Procedure 2012 Completed Procedure 2 Completed Procedure 3 Completed Procedure 4 Completed Procedure 5 Completed [place] tooth Completed 1IVF 2Rt breast bx 3IVF 4Dental/pulled 5Open - fibroid Vital Signs Most recent to oldest [Reference Range]: 1 Patient Weight 65 kg (03/04/24 11:39 AM) Blood Pressure 116/66mmHg (03/04/24 11:39 AM) Cuff Pulse Pressure 50 mmHg (03/04/24 11:39 AM) BP Location # 1 Left Arm (03/04/24 11:39 AM) Social History Social History Type Response Smoking Status Never smoked cigaret nithin Sex Female Gynecology MIS Outpt Note * MD Marcial Linda J: MODIFY MD Rex, Virginie Mcgovern: PERFORM, MODIFY MD Rex, Virginie Mcgovern: MODIFY Event Display: Gynecology MIS Outpt Note Authored Date: Chief Complaint New Pt History of Present Illness Jaden is a44 year old with a hx of AUB, fibroids (s/p myomectomy 2010) polyps (s/p polypectomy 2013). possible endometriosis and known endometrial polyp who presents to the clinic for further evaluation and management of AUB-P and pelvic pain. She reports the the polyp was found inciden tally on TVUSduring workup for chronic back pain. TVUS also significant for multiple small fibroids (<1 cm). She has been experiencing heavy menstrual bleedingher entire life however it has been significantly worse in the past 2 years. Reports that she fills up a plus tampon and a heavy pad in 1.5 hours for the first two days [...] the mini pill 2 months ago. 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 Physical Exam Vitals & Measurements BP:116/66 WT:65kg WT:65.000kg(Dosing) General: Patient sitting comfortably, in no acute distress. Respiratory: Respirations non-labored. Speaking comfortably on room air. Assessment/Plan Jaden is a44 year old with a hx of AUB, fibroids (s/p myomectomy 2010) polyps (s/p polypectomy 2013). possible endometriosis and known endometrial polyp who presents to the clinic for further evaluation and management of AUB-P and pelvic pain. #AUB #Endometrial polyp - Plan for hysteroscopy with polypectomy with Mirena IUD insertion - Recommend continuing mini pill prior to procedure given significant improvement in bleeding. - Discussed the option for Mirena IUD insertion given the improvement in bleeding with the progestin only pill, an IUD can provide a longer term solution for endometrial suppression as well as the prevention of growth of new polyps. - Discussed that patient can continue to take the mini pill with the IUD if she is experiencing undesirable spotting or bleeding with the IUD. Also reviewed that IUD can be removed at any time if patient desires. - Patient desires insertion of Mirena IUD at time of polypectomy. #Possible Endometriosis - Plan for diagnostic laparoscopy with excision of endometriosis - Discussed that with patient's history of reaction to anesthesia addressing multiple issues duringone procedure will potentially decrease the number of surgeries she has to have and times she is exposed to anesthesia. Patient agreed that doing the laparoscopy at the time of hysteroscopy was the best option. - Discussed that the Mirena IUD and mini pill can also provide improvement in pain due to endometriosis. - Recommend continuing with antiinflammatories such as ibuprofen for management of pelvic pain. #Chronic low back pain - Less likely due to small fibroids or polyp noted on recent imaging. Possibly related to endometriosis. - Recommend laparoscopy with removal of endometriosis. - Recommend patient continue with current regiment of massage, chiropractor, antiinflammatory medications, gabapentin, baclofen as prescribed by other providers. #History of EPS/anesthesia reaction - Patient to have anesthesia evaluation prior to surgery. Patient seen and discussed with attending, Dr. Yovana Marcial. Virginie Goodman MD PGY1 Discussed with theResidentphysician and agree with the findings and plan as documented in the note. I saw and evaluated the patient and was physically present for hayden portions of the service and participated in the management of the patient. A total [id number] was spent with the patient with greater than 50% of the time spent in [id number] counseling [id number] of chart review prior to the visit. Yovana Marcial MD Problem List/Past Medical History Ongoing Back pain Back spasm Bundle branch block, right Endometriosis History of anesthesia complications History of section Hx gestational diabetes Liver cyst Low iron Pre-diabetes with history of uterine myomectomy Procedure/Surgical History delivery| Service Date: 2019Tubal ligation| Service Date: 2019Procedure| Service Date: 2018Cesarean delivery| Service Date: 2014Procedure| Service Date: 2012ProcedureProc edureProcedureProcedureWisdom tooth Medications acetaminophen(Tylenol 500 mg oral tablet), 1000 mg= 2 tab, PO, q6h, PRN baclofen, 10 mg, PO calcium carbonate(Tums) gabapentin, 300 mg, PO, Daily ibuprofen(ibuprofen 600 mg oral tablet), 600 mg= 1 tab, PO, qid, PRN, 3 refills omeprazole, 20 mg, PO, Daily unknown medication unknown medication Allergies fentaNYL(Severe)Extrapyramidal symptom morphine(Severe)Extrapyramidal symptom peanuts(Severe)Anaphylaxis propofol(Severe)Extrapyramidal symptom Social History Smoking Status Never smoked cigarettes Electronic Signature on File Electronically Reviewed/Signed by: Virginie Godoman MD Author Signature Dt/Tm:03/04/2024 01:27 PM Resident Division of Women's Health Electronically Reviewed/Signed by: Yovana Marcial MD Cosigner Signature Dt/Tm: 03/04/2024 03:00 PM Division of Women's Health LMD Patient Care team information Care Team Personnel Name: MD Box Timothy F Position: Referring DIRECT Member Role: Primary Care Provider Address: Address: [address] [place] [address] [place] Care Team Related Persons Name: EVANGELISTA BUSTAMANTESON Address: home [address] [facility] [facility], [phone] Name: VIGNESH BUSTAMANTE Address: home [address] [facility], [phone]"
[2024-05-09 20:02] LABS: Basophils # (auto) 0.02 K/uL (0.00-0.20); Basophils % (auto) 0.3 %; Eosinophils # (auto) 0.05 K/uL (0.00-0.50); Eosinophils % (auto) 0.8 %; Hematocrit (blood only) 35.2 % (37.0-47.0); Hemoglobin 11.6 g/dl (12.0-16.0); Immature Granulocytes # (auto) 0.02 K/uL (0.01-0.20); Immature Granulocytes % (auto) 0.3 %; Lymphocytes # (auto) 2.73 K/uL (1.20-3.40); Lymphocytes % (auto) 41.3 %; Mean Corpuscular Hemoglobin 29.8 pg (25.0-34.0); Mean Corpuscular Volume 90.5 fL (80.0-100.0); Mean Platelet Volume 9.9 fL (9.4-12.4); Monocytes # (auto) 0.42 K/uL (0.11-0.59); Monocytes % (auto) 6.4 %; Neutrophils # (auto) 3.37 K/uL (1.40-6.50); Neutrophils % (auto) 50.9 %; Platelet Count 277 K/uL (130-400); RDW Coefficient of Variation 14.5 % (11.5-14.5); RDW Standard Deviation 47.7 fL (36.4-46.3); Red Blood Count 3.89 M/uL (4.20-5.40); White Blood Count 6.61 K/ul (4.8-10.8)
[2024-05-09 20:11] LABS: Bilirubin,Total 0.6 mg/dl (0.2-1.0); Calcium 8.9 mg/dl (8.6-10.3); Magnesium 1.9 mg/dl (1.7-2.4); Potassium 3.9 mmol/L (3.5-5.1)
--- NOTE | 2024-05-09 20:16 | CT Scan Report ---
Exam(s): CT HEAD Without Contrast EXAM: CT Head Without Intravenous Contrast CLINICAL HISTORY: Reason for exam: convulsions, choreioform movements. TECHNIQUE: Axial computed tomography images of the head/brain without intravenous contrast. CTDI is 38.78 mGy and DLP is 546.36 mGy-cm. Automated exposure control was utilized for the study. A dose lowering technique was utilized adhering to the principles of ALARA. COMPARISON: None. FINDINGS: Motion-induced image degradation limits anatomical details. Brain: There is no acute intracranial hemorrhage, mass-effect or midline shift. Terry-white matter differentiation is maintained. There are no extra-axial fluid collections.. Ventricles: Unremarkable. No ventriculomegaly. Bones/joints: Unremarkable. No acute fracture. Soft tissues: Unremarkable. Sinuses: Unremarkable as visualized. No acute sinusitis. Mastoid air cells: Unremarkable as visualized. No mastoid effusion. IMPRESSION: No acute intracranial abnormality noted. . Electronically signed by: Micheline Crenshaw MD, DABR 05/09/24 20:15 PM
[2024-05-09 20:17] LABS: Albumin Globulin Ratio 1.9 (0.9-2); BUN Creatinine Ratio 15.6 (10-20); Creatinine Clr Calc Pharmacy 78.8 ml/min; Est GFR (African American) 108.8 ml/min; Est GFR (Non-African American) 93.9 ml/min; Globulin 2.1 gm/dl (2.5-4.0); Total Protein 6.1 gm/dl (6.0-8.3)
[2024-05-09] MEDS: GABAPENTIN 300 MG CAP PO SCH (21:40)
[2024-05-09] MEDS: BACLOFEN 10 MG TAB PO SCH (21:40)
[2024-05-09] MEDS: PANTOprazole 40 MG TAB PO SCH (21:41)
[2024-05-09] MEDS: ENOXAPARIN INJ 40 MG/0.4 ML SYR SQ SCH (21:43)
[2024-05-09] MEDS: ACETAMINOPHEN 500 MG TAB PO SCH (21:47)
[2024-05-10 06:04] LABS: Basophils # (auto) 0.02 K/uL (0.00-0.20); Basophils % (auto) 0.4 %; Eosinophils # (auto) 0.06 K/uL (0.00-0.50); Eosinophils % (auto) 1.2 %; Hematocrit (blood only) 33.7 % (37.0-47.0); Hemoglobin 11.5 g/dl (12.0-16.0); Immature Granulocytes # (auto) 0.01 K/uL (0.01-0.20); Immature Granulocytes % (auto) 0.2 %; Lymphocytes # (auto) 2.41 K/uL (1.20-3.40); Lymphocytes % (auto) 48.5 %; Mean Corpuscular Hemoglobin 30.7 pg (25.0-34.0); Mean Corpuscular Hgb Conc 34.1 g/dL (32.0-36.0); Mean Corpuscular Volume 89.9 fL (80.0-100.0); Mean Platelet Volume 9.9 fL (9.4-12.4); Monocytes # (auto) 0.31 K/uL (0.11-0.59); Monocytes % (auto) 6.2 %; Neutrophils # (auto) 2.16 K/uL (1.40-6.50); Neutrophils % (auto) 43.5 %; Platelet Count 297 K/uL (130-400); RDW Coefficient of Variation 14.3 % (11.5-14.5); RDW Standard Deviation 47.5 fL (36.4-46.3); Red Blood Count 3.75 M/uL (4.20-5.40); White Blood Count 4.97 K/ul (4.8-10.8)
[2024-05-10 06:20] LABS: Est GFR (African American) 110.6 ml/min; Est GFR (Non-African American) 95.4 ml/min; Potassium 3.5 mmol/L (3.5-5.1)
[2024-05-10 06:21] LABS: BUN Creatinine Ratio 15.8 (10-20); Calcium 8.5 mg/dl (8.6-10.3); Creatinine Clr Calc Pharmacy 79.9 ml/min; Magnesium 2.1 mg/dl (1.7-2.4); Phosphorus 3.5 mg/dl (2.5-4.9)
[2024-05-10 07:42] VITALS: RESP 18
--- NOTE | 2024-05-10 09:22 | Gastroenterology Progress Note ---
Date of Service May 10, 2024 Assessment & Plan (1) GERD (gastroesophageal reflux disease): Plan: Fascinating and somewhat scary postop reaction to anesthesia. I did not feel like it was consistent with an extrapyramidal reaction though. There is a reaction like this in pediatric patients associated with MTHFR mutation. I suggested to her that she get checked for that. Admission and Anticipated Discharge Date Admission Date: May 09, 2024 Subjective Back to normal today. Had a couple of more spells later in the evening that were very mild. Discussed procedureal findings with her. Physical Exam Physical Exam: She looks well Results & Data Vital Signs (Past 12 Hours) Vital Signs Temp Pulse Pulse Resp BP BP Pulse Ox 05/10/24 07:41 37.0 C 61 18 112/77 97 05/10/24 02:16 36.6 C 61 14 110/69 96 05/09/24 23:48 65 05/09/24 23:43 37.0 C 59 L 14 106/68 96 O2 Del Method 05/10/24 07:41 Room Air 05/10/24 02:16 Room Air 05/09/24 23:48 05/09/24 23:43 Room Air
[2024-05-10] MEDS: POTASSIUM CHLORIDE CRTAB 20 MEQ TABCR PO STA (09:53)
--- NOTE | 2024-05-10 09:55 | Neurology Consultation ---
Date of Consultation May 10, 2024 Assessment & Plan (1) Ballism: Ballistic movements post anesthesia in a 44F with a PMH of migraine. Her exam is currently normal. She has had these movements regardless of the type of anesthesia use making a direct medication reaction less likely and has no evidence of underlying sleep disorder, REM behavior disorder or undiagnosed parkinson's disease. Ballistic movements are modulated in the basal ganglia but she has no sign of abnormal basal ganglia function outside of this one situation. I suspect that this is more likely a complication with the recovery from anesthesia than a direct effect of the anesthesia its self. A literature review yielded no results/. I also recommend that she is evaluated by a neurologist as an outpatient as the tele-exam is limited in these situations. Plan -- no further inpatient neurologic work up -- outpatient neurology referral for a formal examination Telehealth Consultation Telehealth Information Telehealth Information: I performed this visit using a real-time telehealth connection between my location and the patients location ([facility]). After connecting through interactive tele-video, patient was identified by name and date of and/or wristband check.Patient (or authorized healthcare sales promotion representative) was informed that this was a telemedicine visit and it was being conducted confidentially over secure lines. My office door was closed and no one else was present in the room with me.Patient (or authorized healthcare sales promotion representative) provided consent to proceed with the visit, expressed an understanding of privacy and security of the telemedicine visit, and gave permission to have a hospital sales promotion representative in the room in order to assist with the visit and to conduct portions of the visit, as needed. I informed the patient (or authorized healthcare sales promotion representative) that I reviewed their record and presented the opportunity for them to ask any questions regarding the visit today. The patient agreed to participate. 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 She reports that in 2010 she underwent she has had worsening ballistic movements as she has come out of anesthesia. Her describes these events as starting in then neck with head shaking and then moving to the arms and now the legs. They are high velocity and high amplitude, non-rhythmic and gradually improve as she comes out of the anesthesia. Sometimes when she sleeps within 24 hours of the surgery the events will return. She has had these movements with multiple types of anesthesia (opioids, benzos, propofol). She denies any abnormal movements during regular sleep. She has had MRI scans, EEGs done which has all been normal. Otherwise, she is very healthy and has no chronic medical problems. Allergies Allergy/AdvReac Type Severity Reaction Status Date / Time fentanyl Allergy Intermediate EXTRAPYRAMIDAL Verified 05/09/24 12:32 REACTION midazolam AdvReac Intermediate EXTRAPYRAMIDAL Verified 05/09/24 12:32 REACTION morphine AdvReac Intermediate EXTRAPYRAMIDAL Verified 05/09/24 12:32 [From Duramorph (PF)] REACTION peanut AdvReac Intermediate Gastrointestinal Verified 05/09/24 16:52 Upset propofol AdvReac Intermediate EXTRAPYRAMIDAL Verified 05/09/24 12:32 REACTION Home Medications Medication Instructions Recorded Confirmed Type baclofen 10 mg tablet 10 mg PO BID 08/28/23 05/09/24 History gabapentin 300 mg capsule 300 mg PO BID 08/28/23 05/09/24 History ibuprofen 200 mg tablet (Advil) 200 mg PO Q6H PRN Pain 08/28/23 05/09/24 History vitamin C 500 mg-multivitamin with 1 tab PO DAILY PRN Other 08/28/23 05/09/24 History minerals chewable tablet (Emergen-C) norethindrone (contraceptive) 0.35 0.35 mg PO DAILY #84 tabs 12/20/23 05/09/24 Rx mg tablet omeprazole 20 mg capsule,delayed 20 mg PO BID 12/20/23 05/09/24 History release acetaminophen 500 mg tablet 1,000 mg PO TID 05/05/24 05/09/24 History (Tylenol Extra Strength) albuterol sulfate 90 mcg/actuation 1 inh inhalation QID PRN Wheezing 05/05/24 05/09/24 History aerosol inhaler calcium carbonate (Tums) 300 mg PO BID PRN Acid Reflux 05/05/24 05/09/24 History iron,carbonyl 65 mg-vitamin C 125 1 tab PO Q OTHER DAY 05/05/24 05/09/24 History mg tablet,delayed release (Vitron-C) levonorgestrel 21 mcg/24 hr (up to 21 mcg intrauterine UD 05/05/24 05/09/24 History 8 years) 52 mg intrauterine device (Mirena) multivitamin 1 tab PO QAM 05/05/24 05/09/24 History simethicone 250 mg capsule 250 mg PO DAILY PRN Digestion 05/05/24 05/09/24 History Patient History Medical History History of anesthesia reaction EXTRAPYRAMIDAL REACTION > gets this after surgery, did not in past, but each time since 2010 has had these episodes, same day surgeries had turned into overnight stays due to this Extrapyramidal and movement disorder, unspecified gets this after surgery, did not in past, but each time since 2010 has had these episodes, same day surgeries had turned into overnight stays due to this IBS (irritable bowel syndrome) diet controlled GERD (gastroesophageal reflux disease) Iron deficiency anemia Sciatica Migraine RBBB no cards Asthma only has flare up when sick > rare res inh use Liver cyst Prediabetes diet controlled Mild tricuspid regurgitation no medication given Mild mitral regurgitation no medications given History of IBS well controlled for several years; no medications Surgical History History of dilatation and curettage History of colonoscopy 2006 or 2007 Hx of breast biopsy with clip placed > benign S/P epidural steroid injection Hx of oral surgery dental implant History of section x2 Hx of laparoscopy Apr 18, 2024 > uterine polyp removed, endometerosis removed, IUD inserted, still taking Tylenol TID for pain Hx of ovarian cystectomy Hx of wisdom tooth extraction Hx of tubal ligation H/O: myomectomy 2010 Family History Father Hypertension Stroke Uncle Colorectal cancer maternal Grandmother (Maternal) Ovarian cancer Other No significant family history Denies family history of Prostate cancer Myocardial infarction Breast cancer Social History Smoking Status: Never smoker Second Hand Exposure: No; Do You Dip or Chew Tobacco: No; Tobacco Cessation Education Requested by Patient: No Hx Alcohol Use: No Hx Substance Use: No Preferred Language: Maldivian Communication Ability: Effective Picu Nurse Required: No Beliefs That Will Affect Care: None marital status: Current Living Situation: Spouse Current Living Situation Comment: lives with and 4 year old daughter current occupational status: employed Other Information That Helps Us Care for You: No Feels Safe at Home: Yes Safety Concerns: Feels Safe At This Time Assistive Devices: None Review of Systems See HPI Physical Exam NEUROLOGIC EXAMINATION: Mental Status:alert, oriented to time, place, person, normal recent memory, normal remote memory, normal attention span, normal concentration, normal language, and normal fund of knowledge Cranial Nerves: CN 2 - no visual defect on confrontation and pupils round, equal, reactive to light CN 3, 4, 6 - extra-ocular movements intact and no nystagmus CN 5 - facial sensation intact CN 7 - no facial asymmetry CN 8 - intact hearing CN 9, 10 - palate symmetric, normal gag CN 11 - good shoulder shrug CN 12 - tongue midline MOTOR: Strength was at least antigravity throughout, Pronator drift was absent, and There were no abnormal movements SENSATION: intact COORDINATION: no ataxia with finger to nose testing and heel to roe testing REFLEXES: cannot assess over telemedicine Results & Data Vital Signs (Past 12 Hours) Vital Signs Temp Pulse Pulse Resp BP BP Pulse Ox 05/10/24 07:41 37.0 C 61 18 112/77 97 05/10/24 02:16 36.6 C 61 14 110/69 96 05/09/24 23:48 65 05/09/24 23:43 37.0 C 59 L 14 106/68 96 O2 Del Method 05/10/24 07:41 Room Air 05/10/24 02:16 Room Air 05/09/24 23:48 05/09/24 23:43 Room Air Laboratory Results Abnormal Lab Results 05/09/24 05/10/24 19:46 05:37 WBC 6.61 4.97 RBC 3.89 L 3.75 L Hgb 11.6 L 11.5 L Hct 35.2 L 33.7 L MCV 90.5 89.9 MCH 29.8 30.7 MCHC 33.0 34.1 RDW Std Deviation 47.7 H 47.5 H RDW Coeff of [place] 14.5 14.3 Plt Count 277 297 MPV 9.9 9.9 Immature Gran % (Auto) 0.3 0.2 Neut % (Auto) 50.9 43.5 Lymph % (Auto) 41.3 48.5 [place] % (Auto) 6.4 6.2 Eos % (Auto) 0.8 1.2 Baso % (Auto) 0.3 0.4 Neut # (Auto) 3.37 2.16 Lymph # (Auto) 2.73 2.41 [place] # (Auto) 0.42 0.31 Eos # (Auto) 0.05 0.06 Baso # (Auto) 0.02 0.02 Immature Gran # (Auto) 0.02 0.01 Sodium 135 L 139 Potassium 3.9 3.5 Chloride 108 H 110 H Carbon Dioxide 20 L 24 Anion Gap 7 5 BUN 12 12 Creatinine 0.77 0.76 Est Cr Clr Drug Dosing 78.8 79.9 Est GFR ( Amer) 108.8 110.6 Est GFR (Non-Af Amer) 93.9 95.4 BUN/Creatinine Ratio 15.6 15.8 Glucose 125 H 86 Calcium 8.9 8.5 L Phosphorus 3.0 3.5 Magnesium 1.9 2.1 Total Bilirubin 0.6 AST 18 ALT 16 Alkaline Phosphatase 36 Total Protein 6.1 Albumin 4.0 Globulin 2.1 L Albumin/Globulin Ratio 1.[address] 05/09/24 18:14 Exam(s): CT HEAD Without Contrast EXAM: CT Head Without Intravenous Contrast CLINICAL HISTORY: Reason for exam: convulsions, choreioform movements. TECHNIQUE: Axial computed tomography images of the head/brain without intravenous contrast. CTDI is 38.78 mGy and DLP is 546.36 mGy-cm. Automated exposure control was utilized for the study. A dose lowering technique was utilized adhering to the principles of ALARA. COMPARISON: None. FINDINGS: Motion-induced image degradation limits anatomical details. Brain: There is no acute intracranial hemorrhage, mass-effect or midline shift. Terry-white matter differentiation is maintained. There are no extra-axial fluid collections.. Ventricles: Unremarkable. No ventriculomegaly. Bones/joints: Unremarkable. No acute fracture. Soft tissues: Unremarkable. Sinuses: Unremarkable as visualized. No acute sinusitis. Mastoid air cells: Unremarkable as visualized. No mastoid effusion. IMPRESSION: No acute intracranial abnormality noted. . Electronically signed by: Micheline Crenshaw MD, AZRAR 05/09/24 20:15 PM
[2024-05-10 11:20] VITALS: BP 108/64; PULSE 66; TEMP 98.2; O2SAT 96
--- NOTE | 2024-05-10 13:23 | Discharge Summary ---
Date of Service May 10, 2024 Admission HPI Per Admitting Provider Patient is a 44-year-old female with a past medical history significant for IBS, iron deficiency anemia, GERD admitted for observation after she had episodes of choreiform movements coming out of anesthesia after a colonoscopy today. Per report from the anesthesiologist today, as she was being woken up after anesthesia she appeared to have convulsive like episodes and extrapyramidal movements that lasted about 20 minutes in length and required 5 people to restrain her. States she was given Benadryl 50 mg and 10 mcg of Precedex which seemed to help her symptoms. Notes that since then she has been having in termittent spasms but there is concerned that once discharged they will persist overnight. Anesthesiologist notes that she has always been alert even throughout the episodes. Requesting admission for observation. Per patient and at bedside, she has had episodes like this repeatedly over the last 10 years whenever she has had anesthesia. states that she will have the jerking and kicking where he is able to control her upper torso but often requires help to fully restrain her. Admission Exam Per Admitting Provider General: Alert, orientedx3. No acute distress, laying in bed Skin: No noted rashes or bruises Psych: Appropriate mood and affect Neuro: No gross deficits, Cranial nerves II through XII grossly intact, strength 5 out of 5 bilaterally HEENT: NC/AT CV: RRR Resp: Breath sounds clear,, no increased effort of breathing. Abdomen: Soft, nontender Extremities: No edema in lower extremities bilaterally. Principal Diagnosis normal EGD, normal colon Discharge Exam General: Alert, orientedx3. No acute distress, laying in bed Skin: No noted rashes or bruises Psych: Appropriate mood and affect Neuro: No gross deficits, Cranial nerves II through XII grossly intact, strength 5 out of 5 bilaterally HEENT: NC/AT CV: RRR Resp: Breath sounds clear, no increased effort of breathing. Abdomen: Soft, nontender Extremities: No edema in lower extremities bilaterally. Discharge Data Allergies Allergy/AdvReac Type Severity Reaction Status Date / Time fentanyl Allergy Intermediate EXTRAPYRAMIDAL Verified 05/09/24 12:32 REACTION midazolam AdvReac Intermediate EXTRAPYRAMIDAL Verified 05/09/24 12:32 REACTION morphine AdvReac Intermediate EXTRAPYRAMIDAL Verified 05/09/24 12:32 [From Duramorph (PF)] REACTION peanut AdvReac Intermediate Gastrointestinal Verified 05/09/24 16:52 Upset propofol AdvReac Intermediate EXTRAPYRAMIDAL Verified 05/09/24 12:32 REACTION Consultations 05/09/24 15:05 Consult Hospitalist Stat 05/09/24 19:07 Consult Neurology Routine Procedures Performed Operation Date: 05/09/24 13:00 <No data on this case meets the specified criteria> Ordered Studies 05/09/24 18:14 CT head/brain wo con Urgent Hospital Course (1) Back pain: Plan Per prior attending with addendum: Patient is a 44-year-old female with a past medical history significant for IBS, iron deficiency anemia, GERD admitted for observation after she had episodes of choreiform movements coming out of anesthesia after a colonoscopy today. Per report from the anesthesiologist today, as she was being woken up after anesthesia she appeared to have convulsive like episodes and extrapyramidal movements that lasted about 20 minutes in length and required 5 people to restrain her. States she was given Benadryl 50 mg and 10 mcg of Precedex which seemed to help her symptoms. Notes that since then she has been having intermittent spasms but there is concerned that once discharged they will persist overnight. Anesthesiologist notes that she has always been alert even throughout the episodes. Requesting admission for observation. Per patient and at bedside, she has had episodes like this repeatedly over the last 10 years whenever she has had anesthesia. states that she will have the jerking and kicking where he is able to control her upper torso but often requires help to fully restrain her. Choreiform movements after anesthesia EEG pending Head CT pending Will obtain blood work PRN IV Benadryl 50 mg every 6 hours neurology consult, appreciate recs Bradycardia noted heart rate in the 40s to 50s EKG pending, consider echo if bradycardia persistent and not transient Possibly in setting of use of anesthesia meds such as Precedex Continue to monitor on telemetry GERD Patient had EGD today for reflux, unremarkable grossly Patient also requested a colonoscopy for family history of colon cancer which was also done today Continue Home PPI Chronic back pain Continue home baclofen and gabapentin DVT prophylaxis: Subcu heparin Diet: Gluten-free Dispo: Admit to PCU telemetry Addendum 05/10/2024: Patient was seen and examined at bedside as a follow-up of c horeiform movements and bradycardia after anesthesia. Her movements have improved. She is back to baseline. She does have history of such movements after anesthesia. Neurology evaluated, recommends outpatient neurology eval. Bradycardia improved. She is hemodynamically stable and would like to go home. She is being discharged with following instructions at the point of discharge: Follow-up with your primary care physician within a week time and likely you will need labs CBC/CMP/magnesium/phosphorus. Neurology evaluated you while inpatient, recommend that you follow-up with neurology as an outpatient. Coordinate with your PCP office to set up the referral. Please make sure that you are able to get your medications today by calling your pharmacy before you leave the hospital so that your treatment continuity is not broken. Home Health Attestation I certify that this patient is under my care and that I, or a physicians assistant department manager working with me, had a face to-face encounter that meets the home health [id number]-laze encounter requirements with this patient. The encounter with the patient was in whole, or in part, for the following medical condition, which is the primary reason for home health care (list medical condition): I certify that, based on my findings, the following services are medically necessary home health services: My clinical findings support the need for the above services because: Further, I certify that my clinical findings support that this patient is homebound (i.e. absences from home require considerable and taxing effort and are for medical reasons or buddhist services or infrequently or of short duration when for other reasons) because: Certification for Home Health Services: Based on the above findings, I certify that this patient is confined to the home and needs intermittent nursing home care, physical therapy and/or speech therapy or continues to need occupational therapy. The patient is under my care, and I have initiated the establishment of the plan of care. This patient will be followed by a physician who will periodically review the plan of care. Total Time Total Time Spent Total Time Spent (In Minutes): 45 Discharge Plan Discharge Items Patient Disposition: Home - Self-Care Reason For Visit: GERD without Esophagitis, Colon Cancer Discharge Diagnosis: normal EGD, normal colon Activity: Resume your previous activity Non-emergency contact: Primary Care Provider Call non-emergency contact if: you have any medication questions Follow-up/Referrals: Moi Box MD [Primary Care Provider] - Diet: Gluten Free Addtl Attending Provider Instructions: Follow-up with your primary care physician within a week time and likely you will need labs CBC/CMP/magnesium/phosphorus. Neurology evaluated you while inpatient, recommend that you follow-up with neurology as an outpatient. Coordinate with your PCP office to set up the referral. Please make sure that you are able to get your medications today by calling your pharmacy before you leave the hospital so that your treatment continuity is not broken. Pending Studies at Discharge: Yes (pathology) Stand-Alone Forms: My [facility], Smoking Cessation Medications and DC Order Prescriptions: Continued baclofen 10 mg tablet 10 mg PO BID gabapentin 300 mg capsule 300 mg PO BID ibuprofen [Advil] 200 mg tablet 200 mg PO Q6H PRN (Reason: Pain) Emergen-C 500 mg tablet,chewable 1 tab PO DAILY PRN (Reason: Other) omeprazole 20 mg capsule,delayed release(DR/EC) 20 mg PO BID norethindrone (contraceptive) 0.35 mg tablet 0.35 mg PO DAILY Qty: 84 4RF Patient Comments: no longer taking 05/05/24 multivitamin Tablet 1 tab PO QAM Mirena 21 mcg/24 hr (8 yrs) 52 mg Intrauterine Device 21 mcg INTRAUTERINE UD Tums 300 mg (750 mg) Tablet,Chewable 300 mg PO BID PRN (Reason: Acid Reflux) acetaminophen [Tylenol Extra Strength] 500 mg Tablet 1,000 mg PO TID Vitron-C 65 mg iron- 125 mg Tablet,Delayed Release (Dr/Ec) 1 tab PO Q OTHER DAY simethicone 250 mg Capsule 250 mg PO DAILY PRN (Reason: Digestion) albuterol sulfate 90 mcg/actuation Hfa Aerosol Inhaler 1 inh INHALATION QID PRN (Reason: Wheezing) Discharge Orders: Discharge Order (Routine); Ordered 05/10/24 Ordered By: Ayla York Admission Data Admit Date/Time: 05/09/24 16:27 Attending Provider: Ayla York Admit Provider: Annie Garza Primary Care Provider: Moi Box Other Providers: Adama Del Valle; Irma Yancey; Andrea Haider; Kirt Hollingsworth; Toby Krishna; Kain Tobar; Gisela Cadena; Vikki Dc; Lucina Nye; Jennifer Benjamin; Long Plummer; Alcides Valdovinos; Nissa Morris; Tobias Harrison; Andrea Florez; Clyde Harvey; Jaylyn Swenson; Joseline Dixon E; Joseline Olmstead E; Cindy Brsicoe E; Radha Ragland; Shad Storey; Nathan Roberto; Anabel Julian; Sandeep Dowell; Maurilio Bah; Lucille Valles.; Martha Caruso; Lupe Mandujano; Valentin Philippe; Michelle Graves; Kirt Bradley; Toby Dotson; Cara Navarrete; Keesha Ingram; Olimpia Phillips; Kurtis Winters; Ayden Ambrose; John Webster
--- NOTE | 2024-05-11 12:09 | Electrocardiogram Report ---
Test Reason : Blood Pressure : */* mmHG Vent. Rate : 55 BPM Atrial Rate : 55 BPM P-R Int : 150 ms QRS Dur : 106 ms QT Int : 468 ms P-R-T Axes : 13 49 20 degrees QTcB Int : 447 ms Sinus bradycardia Low voltage QRS Incomplete right bundle branch block Borderline ECG When compared with ECG of 22-Mar-2018 08:30, Incomplete right bundle branch block is now Present Confirmed by Gregg Fink ([id number]) on 05/11/2024 12:09:28 PM Referred By: Jose Prado Confirmed By: Gregg Fink
== END 2024-05-10 14:55 | disposition home or self-care (01) | DRG 57 ==
LOC: ASU 12:09 → 2S 16:27 → SUATTDRO 16:27